=== PATIENT | female | born 1960 | race African-American/Black ===

== ENCOUNTER 2024-12-01 11:50 | Inpatient (IN) | payer OTHER, MEDICAID ==
[~2024-12-01] VITALS: Ht 162.6 cm; Wt 71.5 kg
[2024-12-01] VITALS (15 sets, daily range): BP systolic 85–115; BP diastolic 51–74; PULSE 101–126; RESP 16–26; TEMP 101.3–101.9; O2SAT 96–100
--- NOTE | 2024-12-01 12:02 | ECG ---
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
--- NOTE | 2024-12-01 12:14 | ED.PDOC ---
History of Present Illness HPI Comments 64 y/o F is BIBA for c/o shortness of breath and bilateral upper and lower extremity swelling for the past 5x days, today. Per EMS report, patient's manager of marketing called after endorsing on patient getting progressively worse following initial unprovoked onset of symptoms, amidst multiple breathing treatments administrations at home along with history of medication compliancy. She has an endorses history of end-stage COPD, CHF w/Lasix use, HTN, asthma, tobacco use, anxiety, depression, and panic attacks. On scene, patient was found with a Spo2 of 92%, tachycardic at 120, blood pressure of 98/61, and a blood glucose fo 191 on scene, with patient "barely passing air" and with rhonchi and wheezing. En route, she was reported to have been given 1x Atrovent and 3x breathing treatments en route, with SpO2 improving to 99%. She has no reported chest pain, cough, fever, chills, nausea, or vomiting at this time. Chief Complaint: Shortness of Breath Time Seen by MD: 11:55 Primary Care Provider: KRIS Reviewed Notes: Nurses Notes, Senior Actuarial Analyst Notes, Medications, Allergies Allergies: Coded Allergies: Sulfa Drugs (Verified Allergy, Unknown, 12/01/24) Information Source: Patient, Emergency Med Personnel Mode of Arrival: EMS Severity: Moderate Timing: Days Duration: Since onset Prehospital treatment: 12 Lead EKG, Accucheck, Breathing Tx, Celebrity Chef Entrepreneur Media Personality Past Medical History PAST MEDICAL HISTORY: Anxiety, Asthma, CHF (w/Lasix use), COPD (end-stage ), Depression, HTN Past Medical History (Other): panic attacks Surgical History: BTL, NEEDLE MOLDER History: No Pertinent NEEDLE MOLDER History Family History Family History: No family hx of Cancer, No family hx of DM, No family hx of Heart lavern, No family hx of HTN, No family hx of Stroke Social History Smoker: Cigarettes Alcohol: Denies ETOH Use Drugs: Denies Drug Use Lives In: Home, Assisted Care Constitutional: denies: chills, diaphoresis, fatigue, fever, malaise, sweats, weakness, others EENTM: denies: blurred vision, double vision, ear bleeding, ear discharge, ear drainage, ear pain, ear ringing, eye pain, eye redness, hearing loss, mouth pain, mouth swelling, nasal discharge, nose bleeding, nose congestion, nose pain, photophobia, tearing, throat pain, throat swelling, voice changes, others Respiratory: reports: shortness of breath; denies: cough, hemoptysis, orthopnea, SOB at rest, SOB with excertion, stridor, wheezing, others Cardiovascular: denies: chest pain, dizzy spells, diaphoresis, Dyspnea on exertion, edema, irregular heart beat, left arm pain, lightheadedness, palpitations, PND, syncope, others Gastrointestinal: denies: abdomen distended, abdominal pain, blood streaked bowels, constipated, diarrhea, dysphagia, difficulty swallowing, hematemesis, melena, nausea, poor appetite, poor fluid intake, rectal bleeding, rectal pain, vomiting, others Genitourinary: denies: abnormal vagina bleeding, burning, dyspareunia, dysuria, flank pain, frequency, hematuria, incontinence, pain, , vagina discharge, urgency, others Neurological: denies: dizziness, fainting, headache, left sided numbness, left sided weakness, numbness, paresthesia, pre-existing deficit, right sided numbness, right sided weakness, seizure, speech problems, tingling, tremors, weakness, others Musculoskeletal: reports: others (bilateral upper and lower extremity swelling ); denies: back pain, gout, joint pain, joint swelling, muscle pain, muscle stiffness, neck pain Integumetry: denies: bruises, change in color, change in hair/nails, dryness, laceration, lesions, lumps, rash, wounds, others Allergic/Immunocompromised: denies: Difficulty Healing, Frequent Infections, Hives, Itching, others Hematologic/Lymphatic: denies: anemia, blood clots, easy bleeding, easy bruising, swollen glands, others Endocrine: denies: excessive hunger, excessive sweating, excessive thirst, excessive urination, flushing, intolerance to cold, intolerance to heat, unexplained weight gain, unexplained weight loss, others Psychiatric: denies: anxiety, bipolar disorder, depression, hopeless, panic disorder, schizophrenia, sleepless, suicidal, others All Other Systems: Reviewed and Negative (negative unless otherwise stated above or in HPI) Physical Exam General Appearance: Severe Distress HEENT: Normal ENT Inspection, Pharynx Normal, TMs Normal Neck: Full Range of Motion, Non-Tender, Normal, Normal Inspection Respiratory: Accessory Muscle Use, Chest Non-Tender, Decreased Breath Sounds, Lungs Clear, Respiratory Distress, Other (The patient was somewhat altered with accessory muscle use) Cardiovascular: No Edema, No JVD, No Murmur, No Gallop, Normal Peripheral Pulses, Regular Rate/Rhythm Breast Exam: Deferred Gastrointestinal: No Organomegaly, Non Tender, No Pulsatile Mass, Normal Bowel Sounds, Soft Genitalia: Deferred Pelvic: Deferred Rectal: Deferred Extremities: No calf tenderness, Normal capillary refill, Normal inspection, Normal range of motion, Non-tender, No pedal edema Musculoskeletal : Apperance: Normal Neurologic: erp manager II-XII nml as Tested, Motor Weakness, Normal Affect, No Sensory Deficits, Other (The patient was somewhat lethargic) Cerebellar Function: Unable to Test Reflexes: Normal Skin: Dry, Pallor, Warm Lymphatic: No Adenopathy Was a procedure done? Was a procedure done?: Yes Sedation Sedation?: Yes Informed consent obtained: Yes Sedation start time: 12:40 Sedation end time: 12:55 Sedation total time: 15 minutes Central Line Recorder of insertion practice: Residential Concierge Occupation of social insurance specialist: Other (Resident physician) Indication: Hypotension, CVP monitoring Room prepared for procedure: Yes Residential Concierge performed hand hygien: Yes Maximal sterile barrier precau: Mask/Eye shield, Sterile gown, Cap, Sterlie gloves, Large sterlie drape Skin Preparation: Chlorhexidine gluconate Skin preparation completely dr: Yes Insertion site: Right, Internal jugular Central line catheter type: Tou-mhecmbun-nqy dialysis Number of lumens: 3 Central line exchanged over a: No Antiseptic ointment applied to: Yes Post Assessment: Chest X-Ray, Proper placement Informed consent obtained: No Risks/benefits/alt described: No Intubation Indication: Respiratory Insufficiency Prep: Preoxygenation Pretreated with: Nothing Medicated with: Succinylcholine (100mg ), Other (20mg etomidate ) Intubation Approach: Orotracheal (8.0) Intubation size: cm (22 ) Informed consent obtained: Yes Risks/benefits/alt described: Yes EKG EKG : Pulse Rate (adult): 122 [place]: Normal Cardiac Rhythm: ST Block: None Hypertrophy: None ST: Normal Differential Dx Considerations may include: COPD exacerbation, CHF exacerbation, asthma exacerbation, URI, PNA, PE, viral syndrome, pleural effusions X-Ray, Labs, Meds, VS Vital Signs Date Time Temp Pulse Resp B/P (MAP) Pulse Ox O2 Delivery O2 Flow Rate FiO2 12/01/24 19:30 117 19 87/57 (67) 99 12/01/24 19:20 87/57 12/01/24 19:15 118 19 91/53 (66) 99 12/01/24 19:15 91/53 12/01/24 19:10 68/41 12/01/24 19:05 60/35 12/01/24 19:00 124 19 67/39 (48) 99 12/01/24 19:00 67/39 12/01/24 19:00 67/39 12/01/24 19:00 67/39 12/01/24 18:45 123 19 99/50 (66) 99 12/01/24 18:30 123 19 93/51 (65) 99 12/01/24 18:15 125 19 112/53 (72) 99 12/01/24 18:00 112/53 12/01/24 18:00 112/53 12/01/24 18:00 114 19 114/57 (76) 99 12/01/24 17:45 114 19 101/67 (78) 99 12/01/24 17:30 112 19 95/59 (71) 99 12/01/24 17:15 112 19 87/55 (66) 99 12/01/24 17:00 115 19 93/58 (70) 100 12/01/24 17:00 93/58 12/01/24 17:00 93/58 12/01/24 16:45 109 19 101/57 (72) 100 12/01/24 16:44 89/50 12/01/24 16:36 115 26 101/57 (72) 100 35 12/01/24 16:30 109 19 94/58 (70) 100 12/01/24 16:15 105 19 81/54 (63) 100 12/01/24 16:00 111 12/01/24 16:00 97.9 111 21 82/54 (63) 100 97.9 12/01/24 16:00 101/57 12/01/24 16:00 101/57 12/01/24 15:45 111 21 91/57 (68) 100 12/01/24 15:30 111 21 94/54 (67) 100 12/01/24 15:15 113 21 99/59 (72) 100 12/01/24 15:00 122 16 115/61 97 50 12/01/24 15:00 94/58 12/01/24 15:00 94/58 12/01/24 15:00 115 21 97/64 (75) 100 12/01/24 14:49 116 12/01/24 14:46 91/60 12/01/24 14:45 91/60 12/01/24 14:45 91/60 12/01/24 14:45 116 21 93/60 (71) 100 12/01/24 14:30 119 21 91/61 (71) 100 12/01/24 14:15 122 21 91/52 (65) 100 12/01/24 14:00 122 21 90/53 (65) 100 12/01/24 13:55 117 22 100 Mechanical Ventilator+ 50 50 12/01/24 13:45 115 21 100/47 (64) 100 12/01/24 13:37 115 86/53 (64) 100 50 12/01/24 13:36 26 100 Mechanical Ventilator+ 100 100 12/01/24 13:32 89/54 12/01/24 13:30 122 22 89/54 (66) 100 12/01/24 13:15 127 12 87/45 (59) 100 12/01/24 13:01 122 12/01/24 13:00 121 12 115/61 (79) 100 12/01/24 12:47 122 26 115/61 (79) 100 50 12/01/24 12:45 127 12 115/52 (73) 100 12/01/24 12:30 127 12 123/53 (76) 100 12/01/24 12:19 98.1 127 12 140/66 (90) 100 98.1 12/01/24 12:14 122 12/01/24 12:04 98.4 120 24 108/62 (77) 99 12/01/24 11:55 122 Lab Test 12/01/24 15:55 12/01/24 15:39 12/01/24 13:35 12/01/24 12:55 Range/Units Blood Gas Specimen Type Arterial Blood Gas Sample Site Left radial Blood Gas Patient Temperature 37.0 Arterial Blood Date Drawn [id number] Arterial Blood pH 7.381 7.350-7.450 Arterial Blood Partial Pressure CO2 66.4 *H 32.0-45.0 mmHg Arterial Blood Partial Pressure O2 140.3 H 83.0-108.0 mmHg Arterial Blood HCO3 38.5 H 21.0-28.0 mmol/L Arterial Blood Oxygen Saturation 98.9 H 94.0-98.0 % Arterial Blood Base Excess 11.6 H -2.0-3.0 mmol/L Arterial Blood Oxyhemoglobin 97.3 94.0-98.0 % Arterial Blood Carboxyhemoglobin 1.3 0.5-1.5 % Arterial Blood Methemoglobin 0.3 0.0-1.5 % Drake Test Modified Blood Gas Total Hemoglobin 9.10 L 12.0-16.0 g/dL Blood Gas Set Respiration Rate 26.0 Blood Gas Modality Vent - ac FiO2 % 50.0 Blood Gas Tidal Volume 400.0 Blood Gas PEEP or CPAP 5.0 Blood Gas Critical Value Read Back yes Blood Gas Notified Whom deisi Rhoades md Blood Gas Notified Time [id number] Blood Gas Notified By Metallic Yarn Slitting Machine Operator fran rajput Troponin I High Sensitivity 26 34 </=34 ng/L Urine Color Light-yellow Yellow Urine Clarity Clear Clear Urine pH 6.0 5.0-9.0 Urine Specific [place] 1.018 1.001-1.035 Urine Protein 1+ H Negative Urine Ketones Negative Negative Urine Blood Negative Negative /uL Urine Nitrite Negative Negative Urine Bilirubin Negative Negative Urine Urobilinogen Normal Negative mg/dL Urine Leukocyte Esterase Negative Negative /uL Urine RBC 1 0 - 4 /hpf Urine Microscopic WBC 1 0-5 /HPF Urine Squamous Epithelial Cells Few <5 /hpf Urine Bacteria None seen None Seen /hpf Urine Hyaline Casts Few 0 - 2 /lpf Urine Mucus Few None Seen Urine Glucose Normal Normal mg/dL Test 12/01/24 12:30 12/01/24 12:24 Range/Units White Blood Count 16.6 H 4.4-10.8 10^3/uL Red Blood Count 3.32 L 4.0-5.20 10^6/uL Hemoglobin 9.0 L 12.2-16.2 g/dL Hematocrit 28.9 L 36.0-46.0 % Mean Corpuscular Volume 86.9 80.0-100.0 fL Mean Corpuscular Hemoglobin 27.1 L 28.0-32.0 pg Mean Corpuscular Hemoglobin Concent 31.2 L 32.0-36.0 g/dL Red Cell Distribution Width 17.6 H 11.8-14.3 % Platelet Count 317 140-450 10^3/uL Mean Platelet Volume 7.8 6.9-10.8 fL Neutrophils (%) (Auto) 87.4 H 37.0-80.0 % Lymphocytes (%) (Auto) 5.0 L 10.0-50.0 % Monocytes (%) (Auto) 6.2 0.0-12.0 % Eosinophils (%) (Auto) 1.0 0.0-7.0 % Basophils (%) (Auto) 0.4 0.0-2.0 % Neutrophils # (Auto) 14.5 H 1.6-8.6 10 ^3/uL Lymphocytes # (Auto) 0.8 0.4-5.4 10 ^3/uL Monocytes # (Auto) 1.0 0-1.3 10 ^3/uL Eosinophils # (Auto) 0.2 0-0.8 10 ^3/uL Basophils # (Auto) 0.1 0-0.2 10 ^3/uL Nucleated Red Blood Cells 0.0 % Sodium Level 137 136-145 mmol/L Potassium Level 4.1 3.5-5.1 mmol/L Chloride Level 89 L 98-107 mmol/L Carbon Dioxide Level > 40 *H 20-31 mmol/L Anion Gap 7.32822 5-15 Blood Urea Nitrogen 15 9-23 mg/dL Creatinine 0.94 0.550-1.02 mg/dL Glomerular Filtration Rate Calc 67 >90 mL/min BUN/Creatinine Ratio 16.0 10.0-20.0 Serum Glucose 175 H 74-106 mg/dL Lactic Acid Level 0.9 0.4-2.0 mmol/L Calcium Level 10.0 8.7-10.4 mg/dL Magnesium Level 2.0 1.6-2.6 mg/dL Troponin I High Sensitivity 32 </=34 ng/L B-Type Natriuretic Peptide 42.90 0-100 pg/mL Blood Gas Specimen Type Arterial Blood Gas Sample Site Left radial Blood Gas Patient Temperature 37.0 Arterial Blood Date Drawn [id number] Arterial Blood pH 7.093 *L 7.350-7.450 Arterial Blood Partial Pressure CO2 174.6 *H 32.0-45.0 mmHg Arterial Blood Partial Pressure O2 129.4 H 83.0-108.0 mmHg Arterial Blood HCO3 52.1 H 21.0-28.0 mmol/L Arterial Blood Oxygen Saturation 97.9 94.0-98.0 % Arterial Blood Base Excess 17.6 H -2.0-3.0 mmol/L Arterial Blood Oxyhemoglobin 96.4 94.0-98.0 % Arterial Blood Carboxyhemoglobin 1.1 0.5-1.5 % Arterial Blood Methemoglobin 0.4 0.0-1.5 % Drake Test Yes Blood Gas Total Hemoglobin 10.20 L 12.0-16.0 g/dL Blood Gas Liter Flow 8.00 Blood Gas Modality Mask - simple FiO2 % 52.0 Blood Gas Critical Value Read Back Yes Blood Gas Notified Whom deisi Rhoades md Blood Gas Notified Time [id number] Blood Gas Notified By Current Medications Medications (Trade) Dose Ordered Sig/Oswaldo Route Start Time Stop Time Status Last Admin Ipratropium Cranberry (Atrovent Medneb) 1 mg ONCE ONCE N 12/01/24 12:00 12/01/24 12:02 DC 12/01/24 13:32 Albuterol (Ventolin Medneb) 10 mg ONCE ONCE HHN 12/01/24 12:00 12/01/24 12:02 DC 12/01/24 13:32 Etomidate 20 mg ONCE ONCE IV 12/01/24 13:00 12/01/24 13:01 DC 12/01/24 12:46 Succinylcholine Chloride (Quelicin) 100 mg ONCE ONCE IV 12/01/24 13:00 12/01/24 13:01 DC 12/01/24 12:47 Midazolam HCl 50 ml @ 1 mls/hr Q24H IV 12/01/24 13:00 12/01/24 16:44 Fentanyl Citrate 250 ml @ 2.5 mls/hr Q24H IV 12/01/24 14:30 12/01/24 14:45 Norepinephrine Bitartrate 250 ml @ 3.75 mls/hr Q24H IV 12/01/24 18:15 12/01/24 19:[address] [address] Ph: [phone] DIAGNOSTIC IMAGING Diagnostic Imaging Report : [id number] Signed PATIENT: SONU GUPTA ACCT: [id number] UNIT: [id number] : 1960 LOC: ER ROOM / BED: / AGE / SEX: 64 / F ADM STATUS: REG ER SERVICE 1200 ORDERING PHYSICIAN: KEVIN RHOADES MD PROCEDURE(s): CXRP - CHEST PORTABLE REASON: sob ORDER NUMBER(s): [id number], ACCESSION NUMBER(s): [id number] CHEST RADIOGRAPH Indication: sob Technique: Single frontal view of the chest was obtained Comparison: None FINDINGS: Lines and Tubes: None Lungs: Bibasilar airspace opacities. Pleura: No effusion. No pneumothorax. Cardiomediastinal contours: Unremarkable Bones: No acute osseous abnormality. IMPRESSION: Bibasilar airspace opacities. ATED BY: JANINE NORRIS MD DICTATED DATE/TIME: 12/01/24 124 SIGNED BY: JANINE NORRIS MD SIGNED DATE/TIME: 12/01/241240 CC: IV Hep-Lock was established. Upon arrival, the patient was normotensive. The patient had a chest x-ray done which showed some pulmonary vascular co ngestion. The patient was still seems a little bit altered so we did do an ABG which the 1st ABG shows a pH of 7.09/pCO2 of 174/PO2 of 129 At this point we decided that the patient would need to be intubated. The patient was intubated with the etomidate and succinylcholine A Cavazos catheter was placed. For sedation, we did start the patient off with Versed but then the patient which required some fentanyl and then eventually propofol. The patient was normotensive but then became somewhat hypotensive so required Levophed. We will continue the patient was norepinephrine to manage the patient's blood pressure. The patient has sustained the central line placement to the right IJ without any difficulty. A chest x-ray is done which showed proper placement of the internal jugular central line as well as the endotracheal tube was above the kaykay of about 3.3 cm The patient has an elevated CBC of 16.6 The patient was somewhat anemic with a hemoglobin of 9.0 and hematocrit of 28.9 The platelets are 317 The CO2 level was greater than 40 on the serum level We are getting a pulmonary consult as well as a Cardiology consult The patient is being admitted to the ICU A repeat ABG shows a pH of 7.38/pCO2 of 68 as well as a PO2 of 140 The patient was being admitted at this time Images Reviewed?: Images reviewed and evaluated by me Time of 1ST Reevaluation: 12:25 Reevaluation 1ST: Unchanged Time of 2ND Reevaluation: 20:13 Reevaluation 2ND: Improved Patient Education/Counseling: Diagnosis, Treatment, Prognosis Family Education/Counseling: Diagnosis, Treatment, Prognosis Departure 1 Departure Time of Disposition: 20:11 Impression: Primary Impression: Acute respiratory failure Qualified Codes: J96.02 - Acute respiratory failure with hypercapnia Additional Impression: Hypotension Qualified Codes: I95.9 - Hypotension, unspecified Disposition: 09 ADMITTED INPATIENT Admit to: ICU Condition: Critical Critical Care Note Critical Care Time?: Yes (1 hr-critical care time only) Stability Stability form required: Yes Unstable for transfer: ICU, CCU, PCU, HERIBERTO (Intensive VS monitoring), ED Physician Assesment (Clinical assesment) Heart Score Heart Score: Heart Score Response (Comments) Value History Highly Suspicious 2 EKG Normal 0 Age >65 2 Risk Factors >3 or Hx ASHD 2 Troponin Normal limit 0 Total 6 I personally scribed for KEVIN RHOADES MD ([email or web address]) on 12/01/24 at 12:14. Electronically submitted by Tyron Solorzano ([email or web address]). I personally scribed for KEVIN RHOADES MD ([email or web address]) on 12/01/24 at 12:54. Electronically submitted by Tyron Solorzano ([email or web address]). I personally scribed for KEVIN RHOADES MD ([email or web address]) on 12/01/24 at 13:09. Electronically submitted by Tyron Solorzano ([email or web address]). KEVIN RHOADES MD Dec 01, 2024 12:14
[2024-12-01 12:38] LABS: Basophils # (auto) 0.1 10 ^3/uL (0-0.2); Basophils % (auto) 0.4 % (0.0-2.0); Eosinophils # (auto) 0.2 10 ^3/uL (0-0.8); Hematocrit 28.9 % (36.0-46.0); Lymphocytes # (auto) 0.8 10 ^3/uL (0.4-5.4); Mean Corpuscular Hemoglobin 27.1 pg (28.0-32.0); Mean Corpuscular Hgb Conc. 31.2 g/dL (32.0-36.0); Mean Corpuscular Volume 86.9 fL (80.0-100.0); Monocytes % (auto) 6.2 % (0.0-12.0); Neutrophils # (auto) 14.5 10 ^3/uL (1.6-8.6); Neutrophils % (auto) 87.4 % (37.0-80.0); Platelet Count (auto) 317 10^3/uL (140-450); Red Blood Cells 3.32 10^6/uL (4.0-5.20); Red Cell Distribution Width 17.6 % (11.8-14.3); White Blood Cell 16.6 10^3/uL (4.4-10.8)
--- NOTE | 2024-12-01 12:44 | DVH ---
CHEST RADIOGRAPH Indication: sob Technique: Single frontal view of the chest was obtained Comparison: None FINDINGS: Lines and Tubes: None Lungs: Bibasilar airspace opacities. Pleura: No effusion. No pneumothorax. Cardiomediastinal contours: Unremarkable Bones: No acute osseous abnormality. IMPRESSION: Bibasilar airspace opacities.
[2024-12-01] MEDS: ETOMIDATE (2MG/ML) 20ML VIAL IV ONE ×2 (12:46→12:52)
[2024-12-01] MEDS: SUCCINYLCHOLINE CHLORIDE 20 MG/ML 10ML VIAL IV ONE ×2 (12:47→12:52)
[2024-12-01 12:49] LABS: Potassium 4.1 mmol/L (3.5-5.1); Sodium 137 mmol/L (136-145)
[2024-12-01] MEDS: MIDAZOLAM DRIP 50 mg/50mL 50 ML IV ONE (12:52)
[2024-12-01 12:55] LABS: Blood Urea Nitrogen 15 mg/dL (9-23)
[2024-12-01 13:00] LABS: Urine Bacteria None Seen /hpf (None Seen)
[2024-12-01 13:00] LABS: Chloride 89 mmol/L (98-107)
[2024-12-01 13:02] LABS: Anion Gap 7.99999 (5-15); Carbon Dioxide > 40 mmol/L (20-31); Glucose 175 mg/dL (74-106)
--- NOTE | 2024-12-01 13:02 | ECG ---
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
[2024-12-01 13:12] LABS: Base Excess 17.6 mmol/L (-2.0-3.0)
--- NOTE | 2024-12-01 13:21 | DVH ---
CHEST RADIOGRAPH Indication: s/p intubation and OG tube placement Technique: Single frontal view of the chest was obtained COMPARISON: XY CHEST PORTABLE on DOS: 12/01/24 FINDINGS: Lines and Tubes: Endotracheal tube and enteric catheter in satisfactory position. Lungs: Pulmonary vascular congestion. Pleura: No effusion. No pneumothorax. Cardiomediastinal contours: Cardiomegaly. Bones: Unremarkable IMPRESSION: Lines and tubes in satisfactory position. Pulmonary vascular congestion.
[2024-12-01] MEDS: FUROSEMIDE 40 MG/4 ML VIAL IV ONE (13:32)
[2024-12-01] MEDS: IPRATROPIUM BROM 0.5 MG/2.5ML INH SOL HHN ONE (13:32)
[2024-12-01] MEDS: ALBUTEROL SULF 2.5 MG/0.5ML(0.5%) NEB SOLN HHN ONE (13:32)
[2024-12-01 13:36] LABS: Urine Blood Negative /uL (Negative); Urine Clarity Clear (Clear); Urine Color Light-Yellow (Yellow); Urine Hyaline Cast FEW /lpf (0 - 2); Urine Mucus FEW (None Seen); Urine Protein, UAD 1+ (Negative); Urine Specific Gravity 1.018 (1.001-1.035); Urine Squamous Epithelial Cell FEW /hpf (<5); Urine Urobilinogen Normal (Negative); Urine WBC 1 /HPF (0-5)
[2024-12-01] MEDS: fentaNYL Drip 2500mCg/250mlNS 250 ML IV SCH (14:45)
[2024-12-01] MEDS: MIDAZOLAM DRIP 50 mg/50mL 50 ML IV SCH (14:45)
--- NOTE | 2024-12-01 15:20 | ECG ---
[facility] Test Date: 2024-12-01 Test Time: 14:49:56 Pat Name: SONU GUPTA Department: ER Room: [address] [place] [address] Gender: F Gate Clerk: IRLANDA : 1960 Requested By: KEVIN HESTER Order Number: [id number] Reading MD: Gee Osborn Measurements Intervals [place] Rate: 116 P: 68 FL: 136 QRS: 55 QRSD: 69 T: 48 QT: 309 QTc: 430 Interpretive Statements Sinus tachycardia Borderline ST elevation, lateral leads Electronically Signed On 12-03-2024 17:47:45 PST by Gee Osborn Please click the below link to view image of tracing.
[2024-12-01 16:44] LABS: Base Excess 11.6 mmol/L (-2.0-3.0)
--- NOTE | 2024-12-01 16:46 | DVH ---
EXAM: CT HEAD WITHOUT CONTRAST HISTORY: aloc COMPARISON: None TECHNIQUE: Axial images of the head were obtained and reformatted in coronal and sagittal planes. All CT scans at this medical facility are performed using dose modulation techniques as appropriate t o a performed exam including the following: Automated exposure control was utilized; adjustment of th e MA and/or KV according to patient size; and use of iterative reconstruction technique. CT Dose: CTDI volume is 60 mGy. Dose-length product is 1059 mGy*cm FINDINGS: There is no evidence of acute intracranial hemorrhage, mass, mass effect midline shift. There is no h ydrocephalus or extra-axial fluid collection. There are patchy hypodense areas in the supratentorial white matter compatible with chronic small-vessel ischemic changes De Dios-white matter differentiation is maintained. The visualized paranasal sinuses and mastoid air cells are clear. The calvarium is intact. IMPRESSION: 1. No acute intracranial process. HS:Y
--- NOTE | 2024-12-01 16:52 | DVH ---
CT ABDOMEN AND PELVIS WITHOUT CONTRAST CLINICAL HISTORY: abd pain TECHNIQUE: Multiple contiguous axial images of the abdomen and pelvis without intravenous contrast. The images were reformatted degenerate coronal and sagittal reconstructions. All CT scans at this medical facility are performed using dose modulation techniques as appropriate t o a performed exam including the following:Automated exposure control was utilized; adjustment of the MA and/or KV according to patient size; and use of iterative reconstruction technique. Radiation Dose Information: CT Dose: CTDI volume is 20 mGy. Dose-length product is 937 mGy*cm Comparison: None FINDINGS: Evaluation of the abdomen and pelvis is limited without intravenous contrast. The liver, gallbladder, pancreas, kidneys, adrenal glands, and spleen appear within normal limits. There is no gross evidence of abdominal lymphadenopathy. There is no free fluid or free air. There is an NG tube terminating in the stomach. The stomach grossly appears unremarkable. The small and large bowel loops demonstrate normal caliber. There is moderate amount of stool in the colon. Th e appendix is not seen in the right lower quadrant. There are no secondary signs of acute appendiciti s. There are calcified atherosclerotic changes in the abdominal aorta. The IVC appears within normal li mits There is a Cavazos catheter in the bladder which is decompressed. The uterus appears lobular which May relate to fibroid changes. There is no gross evidence of a pelvic mass. There is no free fluid colle ction. There is parenchymal scarring in the visualized lung bases. There is no acute osseous abnormality. IMPRESSION: 1. There is no acute process in the abdomen and pelvis. 2. Moderate amount of stool in the colon. HS:Y
[2024-12-01] MEDS: NOREPINEPHRINE 8 MG/250ML KIT 250 ML IV ONE (18:21)
[2024-12-01] MEDS: NOREPINEPHRINE 8 MG/250ML KIT 250 ML IV SCH (19:00)
--- NOTE | 2024-12-01 19:12 | DVH ---
CHEST RADIOGRAPH Indication: CVC insertion Technique: Single frontal view of the chest was obtained Comparison: XY CHEST PORTABLE on DOS: 12/01/24, XY CHEST PORTABLE on DOS: 12/01/24 FINDINGS: Lines and Tubes: Endotracheal tube 3.3 cm above the kaykay. Right internal jugular catheter in place at the cavoatrial junction or just within the right atrium. Enteric tube below the left diaphragm in the stomach Lungs: No focal consolidation. Pleura: No effusion. No pneumothorax. Cardiomediastinal contours: Unremarkable Bones: No acute osseous abnormality. IMPRESSION: 1. Endotracheal tube in place 3.3 cm above the kaykay. 2. Right internal jugular catheter in place at the cavoatrial junction or within the right atrium. 3. Enteric tube below the left diaphragm in the stomach. 4. Findings suggesting pulmonary vascular congestion. HS:Y
[2024-12-01] MEDS: PROPOFOL 100 ML IV ONE (20:00)
[2024-12-01] MEDS: PROPOFOL 100 ML IV SCH (20:00)
[2024-12-01] MEDS ORDERED: VANCOMYCIN PER PHARMACY 0 MG IV SCH (21:15)
[2024-12-01] MEDS ORDERED: CEFEPIME 2GM/50ML NS 50 ML IV SCH (22:00)
[2024-12-01 22:07] LABS: Triglycerides 118 mg/dL (< 150)
[2024-12-01 22:09] LABS: Cholesterol 193 mg/dL (< 200); HDL Cholesterol 56 mg/dL (40-59)
[2024-12-01 22:10] LABS: LDL Cholesterol 110 mg/dL (< 100)
[2024-12-01] MEDS: CEFEPIME 2GM/50ML NS 50 ML IV ONE (22:27)
--- NOTE | 2024-12-01 22:41 | DVHHPRES ---
History of Present Illness Resident Creating Document: MARILUZ AGUILAR RESIDENT History of Present Illness This 64-year-old female with past medical history hypertension, COPD, CHF, asthma, anxiety, panic attacks and depression. The patient presented to the ED via EMS due to shortness of breath associated with bilateral lower extremity swelling and mild bilateral hand swelling as well. Per Lisa (daughter) she states that the patient was having flu-like symptoms a couple of days prior to admission. Apparently, the patient had panic attacks denied before coming to the ED and was having trouble falling asleep with the associated shortness of breath, next morning the patient continued to have shortness of breath for which EMS was called. Initially at scene, the patient was found hypoxic, tachycardic with low blood pressure and gasping for air. On admission, patient received multiple breathing treatments but ABG was showing respiratory acidosis with severe hypercapnia which required intubation. Initial labs showed a WBC of 16.6, hemoglobin of 9, BNP was grossly unremarkable. Troponins came back negative, BNP was 42.90 and EKG was showing sinus tachycardia with no ST segment elevation or depression. The patient is currently sedated on fentanyl 350 micrograms/hour, Versed 50 milligrams/hour and propofol 5 microgram/kilogram per minute. Currently on mechanical ventilator on the following parameters: VT 400 mL, RR 26, FiO2 35%, PEEP 5, Sat 99%. On my examination, there is mild crackles on bilateral lung flowers, abdomen is distended and slightly hard to palpation, there is no lower extremity edema at this time. Start the patient on IV vancomycin, IV cefepime. We will order an echocardiogram and further studies. The patient will be admitted for further assessment and management. Cardiovascular: CHF, HTN, hyperipidemia Pulmonary: Asthma, COPD Psych: Anxiety, Depression Past Surgical History: None Family History: None Smoke: No ALCOHOL: none Drugs: None Lives: with Family Domestic Violence: Neg Review of Systems Review of Systems Unable to obtain due to patient's current status (sedated and intubated) Allergies: Coded Allergies: Sulfa Drugs (Verified Allergy, Unknown, 12/01/24) Medications Current Medications Medications Dose Ordered Sig/Oswaldo Route Start Time Stop Time Status Last Admin Dose Admin Midazolam HCl 50 ml @ 1 mls/hr Q24H IV 12/01/24 13:00 12/01/24 16:44 15 MLS/HR Fentanyl Citrate 250 ml @ 2.5 mls/hr Q24H IV 12/01/24 14:30 12/01/24 14:45 2.5 MLS/HR Norepinephrine Bitartrate 250 ml @ 3.75 mls/hr Q24H IV 12/01/24 18:15 12/01/24 19:00 3.75 MLS/HR Propofol 100 ml @ 2.73 mls/hr Q24H IV 12/01/24 20:00 12/01/24 20:00 2.73 MLS/HR Vancomycin HCl 0 ml @ 0 mls/hr UD IV 12/01/24 21:15 UNV Cefepime HCl 50 ml @ 12.5 mls/hr Q12HR IV 12/01/24 22:00 UNV Enoxaparin Sodium 40 mg DAILY SC 12/02/24 10:00 UNV Exam Vital Signs Vital Signs Date Time Temp Pulse Resp B/P (MAP) Pulse Ox O2 Delivery O2 Flow Rate FiO2 12/01/24 21:00 117 26 88/50 (63) 99 12/01/24 20:16 35 12/01/24 16:00 97.9 97.9 12/01/24 13:55 Mechanical Ventilator+ General Appearance: Other (Patient is sedated, intubated and mechanically ventilated) HEENT: Atraumatic, PERRLA Respiratory: Other (There are mild crackles on bilateral lung flowers) Abdominal: Normal bowel sounds, Other (There is mild abdominal distention that is slightly tense to palpation) Extremities: No clubbing, No cyanosis, No edema, Normal pulses, No tenderness/swelling Skin: No rashes, No breakdown, No significant lesion Neuro: Other (Unable to assess since the patient is already intubated and sedated RASS -3) Psych/Mental Status: Other Labs/Xrays Labs Test 12/01/24 15:55 12/01/24 15:39 12/01/24 12:55 12/01/24 12:30 Range/Units Blood Gas Specimen Type Arterial Blood Gas Sample Site Left radial Blood Gas Patient Temperature 37.0 Arterial Blood Date Drawn [id number] Arterial Blood pH 7.381 7.350-7.450 Arterial Blood Partial Pressure CO2 66.4 *H 32.0-45.0 mmHg Arterial Blood Partial Pressure O2 140.3 H 83.0-108.0 mmHg Arterial Blood HCO3 38.5 H 21.0-28.0 mmol/L Arterial Blood Oxygen Saturation 98.9 H 94.0-98.0 % Arterial Blood Base Excess 11.6 H -2.0-3.0 mmol/L Arterial Blood Oxyhemoglobin 97.3 94.0-98.0 % Arterial Blood Carboxyhemoglobin 1.3 0.5-1.5 % Arterial Blood Methemoglobin 0.3 0.0-1.5 % Drake Test Modified Blood Gas Total Hemoglobin 9.10 L 12.0-16.0 g/dL Blood Gas Set Respiration Rate 26.0 Blood Gas Modality Vent - ac FiO2 % 50.0 Blood Gas Tidal Volume 400.0 Blood Gas PEEP or CPAP 5.0 Blood Gas Critical Value Read Back yes Blood Gas Notified Whom deisi Rhoades md Blood Gas Notified Time [id number] Blood Gas Notified By Dietetics Professor fran rajput Troponin I High Sensitivity 26 </=34 ng/L Urine Color Light-yellow Yellow Urine Clarity Clear Clear Urine pH 6.0 5.0-9.0 Urine Specific [place] 1.018 1.001-1.035 Urine Protein 1+ H Negative Urine Ketones Negative Negative Urine Blood Negative Negative /uL Urine Nitrite Negative Negative Urine Bilirubin Negative Negative Urine Urobilinogen Normal Negative mg/dL Urine Leukocyte Esterase Negative Negative /uL Urine RBC 1 0 - 4 /hpf Urine Microscopic WBC 1 0-5 /HPF Urine Squamous Epithelial Cells Few <5 /hpf Urine Bacteria None seen None Seen /hpf Urine Hyaline Casts Few 0 - 2 /lpf Urine Mucus Few None Seen Urine Glucose Normal Normal mg/dL White Blood Count 16.6 H 4.4-10.8 10^3/uL Red Blood Count 3.32 L 4.0-5.20 10^6/uL Hemoglobin 9.0 L 12.2-16.2 g/dL Hematocrit 28.9 L 36.0-46.0 % Mean Corpuscular Volume 86.9 80.0-100.0 fL Mean Corpuscular Hemoglobin 27.1 L 28.0-32.0 pg Mean Corpuscular Hemoglobin Concent 31.2 L 32.0-36.0 g/dL Red Cell Distribution Width 17.6 H 11.8-14.3 % Platelet Count 317 140-450 10^3/uL Mean Platelet Volume 7.8 6.9-10.8 fL Neutrophils (%) (Auto) 87.4 H 37.0-80.0 % Lymphocytes (%) (Auto) 5.0 L 10.0-50.0 % Monocytes (%) (Auto) 6.2 0.0-12.0 % Eosinophils (%) (Auto) 1.0 0.0-7.0 % Basophils (%) (Auto) 0.4 0.0-2.0 % Neutrophils # (Auto) 14.5 H 1.6-8.6 10 ^3/uL Lymphocytes # (Auto) 0.8 0.4-5.4 10 ^3/uL Monocytes # (Auto) 1.0 0-1.3 10 ^3/uL Eosinophils # (Auto) 0.2 0-0.8 10 ^3/uL Basophils # (Auto) 0.1 0-0.2 10 ^3/uL Nucleated Red Blood Cells 0.0 % Sodium Level 137 136-145 mmol/L Potassium Level 4.1 3.5-5.1 mmol/L Chloride Level 89 L 98-107 mmol/L Carbon Dioxide Level > 40 *H 20-31 mmol/L Anion Gap 7.78396 5-15 Blood Urea Nitrogen 15 9-23 mg/dL Creatinine 0.94 0.550-1.02 mg/dL Glomerular Filtration Rate Calc 67 >90 mL/min BUN/Creatinine Ratio 16.0 10.0-20.0 Serum Glucose 175 H 74-106 mg/dL Lactic Acid Level 0.9 0.4-2.0 mmol/L Calcium Level 10.0 8.7-10.4 mg/dL Magnesium Level 2.0 1.6-2.6 mg/dL B-Type Natriuretic Peptide 42.90 0-100 pg/mL Test 12/01/24 12:24 Range/Units Blood Gas Liter Flow 8.00 Assessment/Plan Assessment/Plan Assessment/plan Acute hypercapnic respiratory failure likely due to Gram-positive/Gram-negative bacterial pneumonia Possible COPD exacerbation Septic shock likely due to above Possible acute on chronic systolic/diastolic heart failure -initial ABG showed a pH of 7.09, pCO2 of 174.6, PaO2 of 129.4, HC03 of 52.1 consistent with respiratory acidosis with chronic metabolic compensation -initial WBC is 16.6 -patient having spikes of fever -Currently on 1 vasopressor (Levophed) -currently sedated on Versed, propofol, fentanyl -currently intubated on the following mechanical ventilatory settings: VT 400, RR 26, FiO2 35%, PEEP 5, saturation of 99% -start IV vancomycin -start IV cefepime -Start IV hydrocortisone 50mg Q6 -Start respiratory therapy mith levalbuterol and ipratropium med nebs -order pancultures (blood culture, sputum culture, urinary ulcers) -monitor saturation closely -monitor with morning ABGs and chest x-ray -initial BNP was 42.90 -troponins were negative -will order an echocardiogram Acute abdominal distention likely due to constipation -Place Ng tube -Lactulose 30cc BID Hx of anxiety, depression and panic attacks -Patient is currently sedated and intubated -Monitor GI prophylaxis -IV pantoprazole 40mg daily DVT prophylaxis -Enoxaparin 40mg sc daily Central line placed on right internal jugular vein on 12/01/[address] Quick Plan discussed with: Daughter, Other My Orders Orders - MARILUZ AGUILAR RESIDENT Procedure Category Date Status Time Vancomycin Per PHA 12/01/24 Logged Pharmacy 21:15 Cefepime 2gm/50ml Ns PHA 12/01/24 Logged (Maxipime 2gm/50ml) 22:00 Admit ADMIT 12/01/24 Transmitted 21:29 Code Status CODE 12/01/24 Transmitted 21:29 Vital Signs PIERO 12/01/24 In Process 21:29 Review Orders With PIERO 12/01/24 In Process Adm. 21:29 Pulse Ox Cont Per Day RT 12/01/24 Logged 21:29 Notify Of Changes PIERO 12/01/24 In Process From Base 21:29 Advance Directive PIERO 12/01/24 In Process 21:29 Urinalysis LAB 12/01/24 Logged 21:29 Complete Blood Count LAB 12/02/24 Verified 04:00 Lipid Panel LAB 12/01/24 Logged 21:29 Urine Bacterial ROSETTA 12/01/24 Logged Culture 21:29 Patient Condition ORDERS 12/01/24 Transmitted 21:29 Allergies PIERO 12/01/24 In Process 21:29 Drug Screen LAB 12/01/24 Logged 21:29 Hemoglobin A1c LAB 12/01/24 Logged 21:29 Enoxaparin Sodium PHA 12/02/24 Logged (Lovenox) 10:00 Date of Service: Dec 01, 2024 Billing Provider: AREN QUICK MD Common Visit Codes: 71041-[id number] INP/OBS CARE (HIGH) Secondary Visit Codes: 82243-[id number] CARE PLAN 30 MINUTES DONNA CoteMARILUZ RESIDENT Dec 01, 2024 22:41 AREN QUICK MD Dec 02, 2024 08:51
[2024-12-01] MEDS: VANCOMYCIN 1GM/250ML KIT 250 ML IV SCH (23:00)
[2024-12-01] MEDS: HYDROCORTISONE SOD SUCC 100 MG/2ML INJ VIAL IV SCH (23:32)
[2024-12-01] MEDS: PANTOPRAZOLE 40 MG/10 ML VIAL INJ IV SCH (23:34)
[2024-12-01] MEDS: ACETAMINOPHEN 325 MG TAB PO PRN (23:34)
[2024-12-02] VITALS (105 sets, daily range): BP systolic 79–142; BP diastolic 38–95; PULSE 54–113; RESP 12–26; TEMP 96.1–100.3; O2SAT 87–100
[2024-12-02] MEDS: IPRATROPIUM BROM 0.5 MG/2.5ML INH SOL NEB SCH (00:14)
[2024-12-02] MEDS: LEVALBUTEROL HCL 1.25 MG/3 ML NEB NEB SCH (00:14)
[2024-12-02 05:09] LABS: Basophils # (auto) 0 10 ^3/uL (0-0.2); Basophils % (auto) 0.2 % (0.0-2.0); Eosinophils # (auto) 0.1 10 ^3/uL (0-0.8); Eosinophils % (auto) 0.7 % (0.0-7.0); Hemoglobin 8.6 g/dL (12.2-16.2); Mean Corpuscular Hemoglobin 25.7 pg (28.0-32.0); Monocytes # (auto) 1.2 10 ^3/uL (0-1.3); Neutrophils # (auto) 13.6 10 ^3/uL (1.6-8.6); Nucleated Red Blood Cells % 0.1 %
[2024-12-02 05:12] LABS: Hematocrit 28.5 % (36.0-46.0); Lymphocytes # (auto) 0.9 10 ^3/uL (0.4-5.4); Lymphocytes % (auto) 5.6 % (10.0-50.0); Mean Corpuscular Hgb Conc. 30.1 g/dL (32.0-36.0); Mean Corpuscular Volume 85.6 fL (80.0-100.0); Monocytes % (auto) 7.5 % (0.0-12.0); Platelet Count (auto) 274 10^3/uL (140-450); Red Blood Cells 3.33 10^6/uL (4.0-5.20); Red Cell Distribution Width 17.4 % (11.8-14.3); White Blood Cell 15.8 10^3/uL (4.4-10.8)
[2024-12-02] MEDS: CEFEPIME 2GM/50ML NS 50 ML IV SCH (05:53)
[2024-12-02 05:58] LABS: Alkaline Phosphatase 60 U/L (46-116); Anion Gap 12 (5-15); BUN/Creatinine Ratio 16.1 (10.0-20.0); Bilirubin, Total 0.3 mg/dL (0.2-1.0); Blood Urea Nitrogen 22 mg/dL (9-23); Calcium 9.6 mg/dL (8.7-10.4); Carbon Dioxide 30 mmol/L (20-31); Total Protein 6.8 g/dL (5.7-8.2)
[2024-12-02 06:24] LABS: Alanine Aminotransferase 41 U/L (7-40); Aspartate Aminotransferase 98 U/L (13-40); Chloride 92 mmol/L (98-107); Glucose 182 mg/dL (74-106); Potassium 3.3 mmol/L (3.5-5.1); Sodium 134 mmol/L (136-145)
[2024-12-02 07:00] LABS: Base Excess 10.3 mmol/L (-2.0-3.0)
[2024-12-02] MEDS: ENOXAPARIN SOD 40 MG/0.4 ML SYRINGE SC SCH (09:28)
[2024-12-02] MEDS: LACTULOSE 20Gm/30ML SOLN PO SCH (09:44)
--- NOTE | 2024-12-02 09:48 | DVHNC2 ---
Procedure - Central Line Procedure Note Date and time: 12/01/2024, at 1800 Indication: Vascular Access Central Line Location: Right Internal Jugular Vein Procedure [employer] Service Attendant: Sarai Wilson, Resident Attending Physician: Dr. Ernesto Rhoades Consent: Consent was obtained prior to the procedure. Indications, risks and benefits were discussed prior to the procedure. Procedure Summary: A time out was performed. My hands were washed immediately prior to the pr ocedure. I wore a surgical cap, mask with protective eyewear, full gown and sterile gloves throughout the procedure. The patient was placed in Trendelenburg position, with head turned 30 degrees away from the insertion site. The Right [_] neck was prepped using chlorhexidine scrub and draped in sterile fashion using a three quarter sheet drape and sterile towels. Skin preparation was allowed to dry prior to skin puncture. Anatomic landmarks were identified. Anesthesia was achieved over the vein using 3 ml of 1% lidocaine. Using real- time ultrasound, with sterile probe cover and sterile gel, the Right Internal Jugular Vein was identified on ultrasound using the linear ultrasound probe in the transverse orientation. The carotid artery was identified and avoided utilizing color-flow. The Internal Jugular Vein was then placed in the center of the ultrasound field and compressed for patency. The introducer needle was inserted into the vein under direct ultrasound visualization, and a movement artifact was identified as the needle was advanced through the skin toward the vessel. A real-time hyperechoic signal revealed visualization of vascular needle entry into the lumen as blood was noted to flashback in the syringe. The needle was then held in place, the syringe was removed, and the guide wire was advanced through the needle. Direct visualization of the guide wire location within the vein was noted on ultrasound, indicating proper placement. The needle was then removed. A small incision was made at the skin surface with a scalpel, and a skin dilator was advanced over the guide wire. After appropriate dilation was obtained, the dilator was removed, and a triple-lumen catheter was then advanced over the guide wire into proper position. The guide wire was removed and discarded. The ports were aspirated, which showed good blood return, and then carefully flushed with normal saline. The catheter was stabilized and sutured to the skin with 2- 0 silk at two anchor points. A sterile op-site was placed over the catheter and biopatch. The patient tolerated the procedure without any hemodynamic compromise. Estimated blood loss: 5 ml Post-procedure chest x-ray: Shows proper positioning of the catheter for use. SARAI WILSON Dec 02, 2024 09:48
[2024-12-02] MEDS: IOHEXOL 350 MG/ML 100ML IJ ONE (10:10)
[2024-12-02 10:23] LABS: INR 0.98 (0.9-1.15); Prothrombin Time 10.4 sec (9.3-11.8)
--- NOTE | 2024-12-02 11:43 | DVH ---
CTA Chest with intravenous contrast INDICATION: R/O PE COMPARISON: None TECHNIQUE: Multidetector spiral CTA of the chest was performed of the chest with intravenous contrast . PULMONARY ANGIOGRAPHY PROTOCOL was utilized using a bolus-tracking technique centered on the main p ulmonary artery. Axial, coronal and sagittal multiplanar and MIP reformats were performed. CONTRAST: Type of contrast: Omni 350 Contrast injected: 67 ml Radiation dose : Chest: CTDI volume is 23.48 mGy. Dose-length product is 861.98 mGy*cm The dose indicators for CT are the volume computed Tomography (CT) dose Index (CTDIvol) and the dose Length product (DLP), and are measured in units of mGy and mGy-cm, respectively. These indicators are not patient dose, but values generated from the CT scanner acquisition factors. The report includes radiation exposure data for exposures received during this examination. Findings: Pulmonary artery: No pulmonary embolism Lower neck: Endotracheal tube and nasogastric tube in place. Lungs: Mild patchy consolidation in the lung bases. Mild septal thickening. Heart/Vascular Structures: Normal heart size. No pericardial effusion. Lymph Nodes: Mildly prominent mediastinal and hilar lymph nodes. Pleura: No pleural effusion or significant pneumothorax. Musculoskeletal: No acute osseous abnormality. Soft tissues: Normal. Upper abdomen: Limited portions of the upper abdomen are unremarkable. IMPRESSION: 1. No pulmonary embolism. 2. Mild patchy airspace disease in the lung bases. Infectious/inflammatory process is not excluded. Septal thickening suggest fluid overload. Mediastinal and hilar lymphadenopathy. Clinical correlatio n and continued follow-up is recommended. HS:Y
[2024-12-02 12:30] LABS: Base Excess 9.1 mmol/L (-2.0-3.0)
[2024-12-02] MEDS: POTASSIUM CHL 20MEQ/100ML 100 ML IV ONE (13:00)
--- NOTE | 2024-12-02 16:24 | DVH ---
Procedure: XY KUB ABDOMEN SINGLE VIEW Study Date and Requested Time: 12/02/2024 03:53 PM History: free air in diaphragm Technique: 2 views of the abdomen and pelvis available for evaluation. Comparison: None Findings/ Impression: Enteric tube is in satisfactory position. Partially visualized central venous catheter terminating wi thin the proximal right atrium /superior cavoatrial junction. Nonspecific bowel gas pattern. No evidence of bowel obstruction or ileus. Moderate amount of fecal ma terial within the colon. Phleboliths are noted within the pelvis. No evidence of acute bony abnormal ities. Bilateral lung bases are clear.
[2024-12-02 18:12] LABS: COVID19 ANTIGEN SOFIA FIA NEGATIVE (NEGATIVE); Rapid Influenza A Negative (Negative); Rapid Influenza B Negative (Negative)
--- NOTE | 2024-12-02 18:26 | DVHPNRES ---
Progress Note Date Seen: Dec 02, 2024 Resident Creating Document: ALDAIR VILLEGAS RESIDENT Has the PT tested + for MRSA If YES, has PT been informed?: No Medical Necessity Reason Pt with a Central, PICC or Fol: Yes The following are medically ne: Central Line, Palacios Catheter Reason for palacios catheter: Strict I&O, Total Immobilization Subjective Review of Systems 64-year-old female patient with past medical history of COPD, heart failure, asthma, anxiety, depression, panic attacks, psoriasis , patient was brought to the hospital on December 01 with a chief complaint of shortness of breaths for the past 5 days before admission, she was started on breathing treatments, at the time mucus was noted to be on 190s and patient was lethargic, tachypneic and tachycardic, per family patient had flu symptoms a couple of days prior to admission, ABG at that time showed marked respiratory acidosis with pCO2 on the 170s, in the ER they decided for intubation. Laboratory results showed leukocytosis, anemia with a hemoglobin at 9 and BNP in the 40s, the patient was started antibiotics and echocardiogram was ordered (60% ejection fraction), regarding other medications on admission patient received med neb, hydrocortisone, cefepime and vancomycin other than the pressors and sedative drips. Today, patient was examined still under mechanical ventilation regarding CBC still on leukocytosis but with some improvement hemoglobin went down delayed 0.6 D-dimer slightly elevated 1.64, transaminitis, findings in the CMP showed mild hypokalemia, elevation in the creatinine level consistent with a NICKY on chronic kidney disease as GFR went down 43, but the anion gap was normal: 12. ABGs were improved min over time, since admission with the patient was found to have 7, serial 9 then on 12/01 at 4:00 p.m. the patient ABG showed improvement 7, 38 the pH and on December 02 at 7:00 a.m. ABG showed pCO2 42, PO2 on 88 and a pH on 7.52 for which the setting were decreased until 22 and then readjusted in the afternoon until 18. Subsequent ABG showed normalized values. Chest x-ray showing bibasilar opacities consistent with pulmonary vascular congestion. Patient noted with an open ulcer to her right abdominal fold measuring 1x2cm, there is significant scar tissue to periwound, base of open ulcer noted with pink granulated tissue, small serosanguineous drainage noted on previous dressing, wound care rendered as ordered. Patient turned to her right side, patient noted with two open ulcer on her medical sacrum (1.5x0.5cm) and left buttock (0.5x0.5cm), the etiology of these wounds is unknown at this time, the skin between both ulcers is noted with dark discoloration and erythema, skin is not boggy, wound culture obtained from sacral wound and sent to lab via Nitro[facility] system for further testing as ordered. Wound care was consulted. wound culture ordered. Changes from previous H/P or p: Changes Objective vital signs Vital Sign Date Time Temp Pulse Resp B/P (MAP) Pulse Ox O2 Delivery O2 Flow Rate FiO2 12/02/24 16:39 103/39 12/02/24 16:20 59 18 100 30 12/02/24 16:00 Mechanical Ventilator+ 12/02/24 14:30 97.6 97.6 Total Intake and Output 12/01/24 12/01/24 12/02/24 15:00 23:00 07:00 Intake Total 32.5 ml 377.15 ml 690.96 ml Output Total 350 ml 900 ml Balance 32.5 ml 27.15 ml -209.04 ml medications Current Medications Medications Dose Ordered Sig/Oswaldo Route Start Time Stop Time Status Last Admin Dose Admin Midazolam HCl 50 ml @ 1 mls/hr Q24H IV 12/01/24 13:00 12/02/24 16:13 15 MLS/HR Fentanyl Citrate 250 ml @ 2.5 mls/hr Q24H IV 12/01/24 14:30 12/02/24 13:31 35 MLS/HR Norepinephrine Bitartrate 250 ml @ 3.75 mls/hr Q24H IV 12/01/24 18:15 12/02/24 09:44 22.5 MLS/HR Propofol 100 ml @ 2.73 mls/hr Q24H IV 12/01/24 20:00 12/02/24 16:39 8.19 MLS/HR Vancomycin HCl 0 ml @ 0 mls/hr UD IV 12/01/24 21:15 Enoxaparin Sodium 40 mg DAILY SC 12/02/24 10:00 12/02/24 09:28 40 MG Acetaminophen 650 mg Q6HP PRN PO 12/01/24 22:30 12/01/24 23:34 650 MG Levalbuterol HCl 1.25 mg Q6HR NEB 12/02/24 00:00 12/02/24 12:01 1.25 MG Ipratropium [place] 0.5 mg Q6HR NEB 12/02/24 00:00 12/02/24 12:01 0.5 MG Lactulose 30 ml BID PO 12/02/24 10:00 12/02/24 09:44 30 ML Pantoprazole Sodium 40 mg DAILY IV 12/01/24 22:45 12/02/24 09:28 40 MG Hydrocortisone Sodium Succinate 50 mg Q6HR IV 12/02/24 00:00 12/02/24 11:41 50 MG Cefepime/Dextrose 50 ml @ 16.667 mls/ hr Q12H IV 12/03/24 00:00 Examination Examination General Appearance: On mechanical ventilation Respiratory: Clear to auscultation, Normal air movement Cardiovascular: Regular rate, Normal S1, Normal S2 Abdominal: Absent bowel sounds, abdomen very distended, Extremities: No cyanosis, No edema, Normal pulses, No tenderness/swelling Skin: Supracondylar pink lesions consistent with skin psoriasis, groin/neck/armpit/perianal scars in the skin with a open wound in the lower abdomen and lower back. Neuro: Pupils are reactive but sluggish 3 mm, gag reflex is present. laboratory and microbiology Laboratory Tests 12/02/24 04:26 Test 12/02/24 04:26 Range/Units Serum Glucose 182 H 74-106 mg/dL Microbiology Date/Time Source Procedure Growth Status 12/01/24 13:20 Blood Blood Culture - Preliminary NO GROWTH AFTER 24 HOURS OF INCUBATION. Resulted 12/01/24 12:58 Sputum Gram Stain - Final Resulted 12/01/24 12:58 Sputum Respiratory Culture - Preliminary Resulted Problem List/Assessment/Plan Problem List/Assessment/Plan Neurology #sedated under mechanical ventilation #Acute hypoxic hypercarbic respiratory failure likely due to COPD exacerbation due to community acquired pneumonia #? septic shock due to skin abscesses due to hydradenitis suppurativa? - head ct negative - sedatives and pressors - antibiotics -wound culture - wound care -surgical consult cardiovascular #septic shock due to CAP/ HS? #Possible acute on chronic diastolic heart failure #Aortic atherosclerosis Respiratory #Acute hypercapnic respiratory failure likely due to COPD exacerbation due to Gram-positive/Gram-negative bacterial pneumonia, ?skin abscess in the setting of ? Hydradenitis suppurativa Vasquez II/III #mechanical ventilation # community acquired penumonia #acute on chronic diastolic heart failure #pulmonary vascular congestion #COPD exacerbation Endocrine #type 2 obesity #metabolic syndrome #skin psoriasis skin #skin graft scar (old) in right leg ? previous large wound closure for HS? #Skin psoriasis #Hidradenitis suppurativa - pancultures -wound culture - surgical eval -iv antibiotics -wound care consult Acute abdominal distention likely due to constipation -Place Ng tube -Lactulose 30cc BID Hx of anxiety, depression and panic attacks -Patient is currently sedated and intubated -Monitor GI prophylaxis -IV pantoprazole 40mg daily DVT prophylaxis -Enoxaparin 40mg sc daily Central line placed on right internal jugular vein on 12/01/24 case discussed with critical care : time spent not including procedures: 83 minutes full code Plan discussed with: Other My Orders My Orders Orders - ALDAIR VILLEGAS RESIDENT Procedure Category Date Status Time Abg W/ Co-Ox RT 12/02/24 Logged 12:00 Ventilator Orders RT 12/02/24 Transmitted 11:00 * Wound Consult CONS 12/02/24 Transmitted Clostridium Difficile ROSETTA 12/02/24 Uncollected Toxin 14:01 Wound Culture W/ Gs ROSETTA 12/02/24 In Process 14:20 Kub Abdomen Single XY 12/02/24 Resulted View 15:47 Cleanse Wound With PIERO 12/02/24 In Process Wound Clean 14:00 * Dietary Consult CONS 12/02/24 Transmitted 16:08 Potassium LAB 12/02/24 Logged 17:37 Date of Service: Dec 02, 2024 Billing Provider: SHAWNA ORELLANA MD Common Visit Codes: NOT BILLABLE ALDAIR VILLEGAS RESIDENT Dec 02, 2024 18:26 SHAWNA ORELLANA MD Dec 05, 2024 10:56
--- NOTE | 2024-12-02 18:43 | DVHSR ---
APPROVED REPORT EXAM: LIMITED Two-dimensional and M-mode echocardiogram with Doppler and color Doppler. Blood Pressure: 121/61 mmHg INDICATION R/O CHF and structural heart abn RISK FACTORS Obesity: Height: 5'4, Weight: 200 DIMENSIONS LVDd2.9 (3.8-5.7cm)LA (2D) (1.9-4.0cm)Aortic Root2.4 (2.0-3.7cm) LVDs1.5 (2.5-4.0cm)LA (MM) (1.9-4.0cm)Aortic Cusp Exc1.1 (1.5-2.0cm) EF (%) 65.0 (55-70%)Rt. Atrium (1.9-4.0cm)Asc. Aorta cm IVSd1.5 (0.7-1.1cm)RV (D) (1.8-2.4cm) PWd1.3 (0.7-1.1cm) Mitral Valve MitralMitral Stenosis E/A ratio0.02D MVAcm2 Aortic Valve Aortic ValveAortic Stenosis LVOT Diameter2.1 (1.8-2.4cm)Doppler AVAcm2 Tricuspid Valve TR Velocity2.37m/s [id number] Other Information Quality : Technically LimitedRhythm : Technically limited study due to body habitus.on vent.patient position. Conclusion Technically good study. Sinus rhythm. Concentric LVH. Aortic root enlargement. Mild left atrial enlargement. RVH. Valves appear to be structurally normal. Left ventricular function is preserved at 60% with normal RV function Impaired diastolic relaxation. Mild TR. No pericardial effusion masses or vegetations noted
[2024-12-02] MEDS: CEFEPIME 2GM/50ML 50 ML IV SCH (23:45)
[2024-12-03] VITALS (114 sets, daily range): BP systolic 101–141; BP diastolic 36–72; PULSE 48–89; RESP 17–22; TEMP 97.5–99.1; O2SAT 86–100
[2024-12-03] MEDS: ALBUTEROL SULF 2.5 MG/0.5ML(0.5%) NEB SOLN NEB PRN (02:53)
[2024-12-03 04:07] LABS: Basophils # (auto) 0 10 ^3/uL (0-0.2); Hemoglobin 8.4 g/dL (12.2-16.2); Mean Corpuscular Volume 85.8 fL (80.0-100.0); Monocytes # (auto) 0.7 10 ^3/uL (0-1.3); Platelet Count (auto) 248 10^3/uL (140-450); White Blood Cell 14.4 10^3/uL (4.4-10.8)
[2024-12-03 04:09] LABS: Basophils % (auto) 0.3 % (0.0-2.0); Eosinophils # (auto) 0 10 ^3/uL (0-0.8); Eosinophils % (auto) 0.2 % (0.0-7.0); Hematocrit 26.9 % (36.0-46.0); Lymphocytes # (auto) 0.6 10 ^3/uL (0.4-5.4); Lymphocytes % (auto) 4.5 % (10.0-50.0); Mean Corpuscular Hemoglobin 26.8 pg (28.0-32.0); Mean Corpuscular Hgb Conc. 31.3 g/dL (32.0-36.0); Nucleated Red Blood Cells % 0.1 %; Red Blood Cells 3.14 10^6/uL (4.0-5.20); Red Cell Distribution Width 18.1 % (11.8-14.3)
[2024-12-03 04:26] LABS: Albumin 3.8 g/dL (3.2-4.8); Alkaline Phosphatase 57 U/L (46-116); Anion Gap 9 (5-15); BUN/Creatinine Ratio 19.2 (10.0-20.0); Blood Urea Nitrogen 19 mg/dL (9-23); Chloride 104 mmol/L (98-107); Potassium 3.9 mmol/L (3.5-5.1); Sodium 144 mmol/L (136-145); Total Protein 6.9 g/dL (5.7-8.2)
[2024-12-03 04:35] LABS: Alanine Aminotransferase 44 U/L (7-40); Aspartate Aminotransferase 225 U/L (13-40); Bilirubin, Total 0.2 mg/dL (0.2-1.0); Carbon Dioxide 31 mmol/L (20-31); Glucose 140 mg/dL (74-106)
--- NOTE | 2024-12-03 05:44 | DVH ---
CHEST RADIOGRAPH Indication: intubated Technique: Single frontal view of the chest was obtained COMPARISON: XY CHEST XRAY 1 VIEW on DOS: 12/01/24, XY CHEST PORTABLE on DOS: 12/01/24, XY CHEST PORTABL E on DOS: 12/01/24 FINDINGS: Lines and Tubes: Endotracheal tube, enteric catheter and right central venous catheter in satisfactor y position. Lungs: Diffuse increased interstitial prominence. Pleura: No effusion. No pneumothorax. Cardiomediastinal contours: Cardiomegaly Bones: Unremarkable IMPRESSION: Lines and tubes in satisfactory position. No significant interval change.
[2024-12-03 08:22] LABS: Base Excess 5.7 mmol/L (-2.0-3.0)
--- NOTE | 2024-12-03 10:20 | DVHPN2 ---
Assessment/Plan Assessment/Plan ICU progress note 64-year-old female with COPD, half pack, psoriasis, hs, asthma admitted to the ICU for acute hypercarbic hypoxic respiratory failure, intubated and placed on mechanical ventilation. Patient also had septic shock. Seen today during rounds, pending surgery consult, weaning pressors, c/w current treatment. fluid challenge and bowel reg. hold tf for now. NG to LIS Physical exam Intubated, mechanically ventilated PERRLA Mechanical breath sound Regular rate and rhythm Abdomen distended, minimal bowel sound Skin with psoriasis rashes Lower abdomen with open wound with granulomatous base Labs imaging and EKG reviewed Assessment and plan Acute hypoxic hypercarbic respiratory failure Requiring mechanical ventilation Septic shockRequiring pressors Acute on chronic diastolic heart failure COPD group E with exacerbation NICKY likely be [place], resolved Community-acquired pneumonia, Gram-negative versus Gram-positive Skin abscess secondary to HS? Psoriasis Constipation Anxiety Depression Panic attacks Obesity continue with mechanical ventilation maintain spo2 >92 continue with sedation maintain RASS -3 Continue with antibiotic coverage vanc and cefepime stress dose steroid Continue with pressors, maintain map above 65 Surgical consult Wound care Bowel regimen, add miralax senna NG to LIS fluid challange Lines Right IJ TLC Cavazos NG tube Diet tube feeding hold DVT prophylaxis Lovenox GI prophylaxis Protonix Condition critical poor prognosis Full code 79 minutes of critical care time spent Plan discussed with: Other Date of Service: Dec 03, 2024 Billing Provider: JERRY HANSON MD Common Visit Codes: [id number] CARE 30-74 MIN, [id number] CARE-EACH +30MIN JERRY HANSON MD Dec 03, 2024 10:20
[2024-12-03] MEDS: SODIUM CHLORIDE 0.9% 500 ML IV ONE (10:50)
[2024-12-03] MEDS: ALBUTEROL SULF 2.5 MG/0.5ML(0.5%) NEB SOLN NEB SCH (11:14)
[2024-12-03] MEDS: IPRATROPIUM BROM 0.5 MG/2.5ML INH SOL NEB SCH (11:14)
[2024-12-03] MEDS: POLYETHYLENE GLYCOL 17 GM PWDR PO ONE (13:05)
[2024-12-03] MEDS: SENNA 8.6 MG TAB PO ONE (13:05)
[2024-12-03] MEDS: FUROSEMIDE 20 MG/2 ML VIAL IV ONE (15:39)
[2024-12-03] MEDS ORDERED: FERR325T24 PO (16:07)
[2024-12-03] MEDS ORDERED: NITR0.4S29 SL (16:07)
[2024-12-03] MEDS ORDERED: FURO1TAB31 PO (16:07)
[2024-12-03] MEDS ORDERED: FORM20NE3 IN (16:07)
[2024-12-03] MEDS ORDERED: CLON0.1T PO (16:07)
[2024-12-03] MEDS ORDERED: PRED10TA PO (16:07)
[2024-12-03] MEDS ORDERED: TRIA0.5C TOP (16:07)
[2024-12-03] MEDS ORDERED: VENL75CA78 PO (16:07)
[2024-12-03] MEDS ORDERED: FLUT1AER5 IN (16:07)
[2024-12-03] MEDS ORDERED: QUET50TA PO (16:07)
[2024-12-03] MEDS ORDERED: LOSA-534 PO (16:07)
[2024-12-03] MEDS: VANCOMYCIN 750MG KIT 100 ML IV SCH (17:06)
[2024-12-03] MEDS: CEFEPIME 2 GM/50 ML IV SCH (18:20)
[2024-12-03] MEDS: [UNRECOGNIZED DRUG - OTHER] IV SCH (18:20)
--- NOTE | 2024-12-03 19:08 | DVHINCON2 ---
Date of service: Dec 03, 2024 Family History: Chronic obstructive lung disease (situation) G8 FATHER Family history: Asthma G8 MOTHER, G8 FATHER Allergies: Coded Allergies: Sulfa Drugs (Verified Allergy, Unknown, 12/01/24) Home Meds Reported Medications Furosemide (Lasix) 40 Mg Tab, 40 MG PO DAILY, TAB 12/03/24 Ferrous Sulfate (Ferrous Sulfate) 325 Mg Tab, 325 MG PO BIDWM for 30 Days, MG 12/03/24 Clonidine Hydrochloride (Clonidine Hcl) 0.1 Mg Tab, 0.1 MG PO BID for 30 Days, MG 12/03/24 Losartan Potassium (Losartan Potassium) 50 Mg Tab, 1 TAB PO DAILY, #30 TAB 5 Refills 12/03/24 Nitroglycerin (NTROSTAT SUBLINGUAL) 0.4 Mg Sl, 0.4 MG SL PRN PRN for FOR CHEST PAIN, TAB *MAY REPEAT EVERY 5 MINUTES X 3 TOTAL IF NO RELIEF, INITIATE ANALGESIC THERAPY. NOTIFY PHYSICIAN *Do not crush. 12/03/24 Venlafaxine Hcl (Venlafaxine Hcl Er) 75 Mg Cap, 1 CAP PO DAILY, #90 CAP 3 Refills 12/03/24 Triamcinolone Acetonide (Triamcinolone Acetonide) 0.5 % Cre, 1 APPLIC TOP BID, APPLIC 12/03/24 Fluticasone-Salmeterol (Wixela Inhub 100-50 Mcg/Dose) 1 Aer Aer, 1 AER IN BID, AER 12/03/24 Formoterol Fumarate Dihydrate (Formoterol Fumarate) 20 Mcg/2 Ml Neb, 20 MCG IN BID, INH 12/03/24 Quetiapine Fumerate (Seroquel) 50 Mg Tab, 50 MG PO DAILY for 30 Days, MG 12/03/24 Prednisone (Prednisone) 10 Mg Tab, 10 MG PO DAILY, MG 12/03/24 Current Medications Current Medications Medications (Trade) Dose Ordered Sig/Oswaldo Route PRN Reason Start Time Stop Time Status Last Admin Cefepime/Dextrose 50 ml @ 16.667 mls/ hr Q12H IV 12/03/24 00:00 12/03/24 14:20 DC 12/03/24 11:50 Ipratropium [place] (Atrovent Medneb) 0.5 mg Q4HWA NEB 12/03/24 06:00 12/03/24 18:11 Albuterol (Ventolin Medneb) 2.5 mg Q4HWA NEB 12/03/24 06:00 12/03/24 18:11 Albuterol (Ventolin Medneb) 2.5 mg Q3HPRN PRN NEB SHORTNESS OF BREATH 12/03/24 01:15 12/03/24 02:53 Polyethylene Glycol (Miralax 17GM Powder) 17 gm DAILY PO 12/04/24 10:00 Sennosides (Senokot Tablet) 17.2 mg HS PO 12/03/24 22:00 Vancomycin HCl 100 ml @ 100 mls/hr Q18H IV 12/03/24 16:00 12/03/24 17:06 Cefepime HCl 50 ml @ 12.5 mls/hr Q8H IV 12/03/24 18:00 12/03/24 18:20 Vital Signs Vital Signs Date Time Temp Pulse Resp B/P (MAP) Pulse Ox O2 Delivery O2 Flow Rate FiO2 12/03/24 18:45 97.9 71 18 116/59 (78) 91 208.2 12/03/24 18:12 Mechanical Ventilator 12/03/24 18:12 30 30 Labs/Diagnostic Data Labs Test 12/03/24 07:44 12/03/24 03:01 12/02/24 16:30 12/02/24 16:04 Range/Units Blood Gas Specimen Type Arterial Blood Gas Sample Site Left radial Blood Gas Patient Temperature 37.0 Arterial Blood Date Drawn [id number] Arterial Blood pH 7.366 7.350-7.450 Arterial Blood Partial Pressure CO2 56.9 H 32.0-45.0 mmHg Arterial Blood Partial Pressure O2 81.2 L 83.0-108.0 mmHg Arterial Blood HCO3 31.9 H 21.0-28.0 mmol/L Arterial Blood Oxygen Saturation 94.8 94.0-98.0 % Arterial Blood Base Excess 5.7 H -2.0-3.0 mmol/L Arterial Blood Oxyhemoglobin 94.2 94.0-98.0 % Arterial Blood Carboxyhemoglobin 0.3 L 0.5-1.5 % Arterial Blood Methemoglobin 0.3 0.0-1.5 % Drake Test Modified Blood Gas Total Hemoglobin 7.90 L 12.0-16.0 g/dL Blood Gas Set Respiration Rate 18.0 Blood Gas Modality Vent - ac Blood Gas Spontaneous Rate 18 FiO2 % 40.0 Blood Gas Tidal Volume 400.0 Blood Gas Inspiratory Pressure 33.0 Blood Gas PEEP or CPAP 5.0 Bl Gas Inspiratory/Expiratory Ratio 1:3.6 Specimen Drawn By fito nixon White Blood Count 14.4 H 4.4-10.8 10^3/uL Red Blood Count 3.14 L 4.0-5.20 10^6/uL Hemoglobin 8.4 L 12.2-16.2 g/dL Hematocrit 26.9 L 36.0-46.0 % Mean Corpuscular Volume 85.8 80.0-100.0 fL Mean Corpuscular Hemoglobin 26.8 L 28.0-32.0 pg Mean Corpuscular Hemoglobin Concent 31.3 L 32.0-36.0 g/dL Red Cell Distribution Width 18.1 H 11.8-14.3 % Platelet Count 248 140-450 10^3/uL Mean Platelet Volume 8.2 6.9-10.8 fL Neutrophils (%) (Auto) 90.0 H 37.0-80.0 % Lymphocytes (%) (Auto) 4.5 L 10.0-50.0 % Monocytes (%) (Auto) 5.0 0.0-12.0 % Eosinophils (%) (Auto) 0.2 0.0-7.0 % Basophils (%) (Auto) 0.3 0.0-2.0 % Neutrophils # (Auto) 13.0 H 1.6-8.6 10 ^3/uL Lymphocytes # (Auto) 0.6 0.4-5.4 10 ^3/uL Monocytes # (Auto) 0.7 0-1.3 10 ^3/uL Eosinophils # (Auto) 0 0-0.8 10 ^3/uL Basophils # (Auto) 0 0-0.2 10 ^3/uL Nucleated Red Blood Cells 0.1 % Sodium Level 144 # 136-145 mmol/L Potassium Level 3.9 3.5-5.1 mmol/L Chloride Level 104 # 98-107 mmol/L Carbon Dioxide Level 31 20-31 mmol/L Anion Gap 9 5-15 Blood Urea Nitrogen 19 9-23 mg/dL Creatinine 0.99 0.550-1.02 mg/dL Glomerular Filtration Rate Calc 63 >90 mL/min BUN/Creatinine Ratio 19.2 10.0-20.0 Serum Glucose 140 H 74-106 mg/dL Calcium Level 10.0 8.7-10.4 mg/dL Total Bilirubin 0.2 0.2-1.0 mg/dL Aspartate Amino Transferase (AST) 225 H 13-40 U/L Alanine Aminotransferase (ALT) 44 H 7-40 U/L Alkaline Phosphatase 57 46-116 U/L Total Protein 6.9 5.7-8.2 g/dL Albumin 3.8 3.2-4.8 g/dL Random Vancomycin Level 9.3 5-10 ug/mL Influenza Type A Antigen Negative Negative Influenza Type B Antigen Negative Negative SARS-CoV-2 Antigen (Rapid) Negative NEGATIVE Lactic Acid Level 1.1 0.4-2.0 mmol/L Test 12/02/24 09:56 12/01/24 22:28 12/01/24 15:55 12/01/24 15:39 Range/Units Prothrombin Time 10.4 9.3-11.8 sec Prothrombin Time INR 0.98 0.9-1.15 D-Dimer, Quantitative 1.64 H 0.0-0.49 mg/L FEU Hemoglobin A1c 5.1 <5.7 % A1C Blood Gas Critical Value Read Back yes Blood Gas Notified Whom deisi Rhoades md Blood Gas Notified Time [id number] Blood Gas Notified By Cryptologic Technician fran rajput Troponin I High Sensitivity 26 </=34 ng/L Triglycerides Level 118 < 150 mg/dL Cholesterol Level 193 < 200 mg/dL LDL Cholesterol 110 H < 100 mg/dL HDL Cholesterol 56 40-59 mg/dL Test 12/01/24 12:55 12/01/24 12:30 12/01/24 12:24 Range/Units Urine Color Light-yellow Yellow Urine Clarity Clear Clear Urine pH 6.0 5.0-9.0 Urine Specific [place] 1.018 1.001-1.035 Urine Protein 1+ H Negative Urine Ketones Negative Negative Urine Blood Negative Negative /uL Urine Nitrite Negative Negative Urine Bilirubin Negative Negative Urine Urobilinogen Normal Negative mg/dL Urine Leukocyte Esterase Negative Negative /uL Urine RBC 1 0 - 4 /hpf Urine Microscopic WBC 1 0-5 /HPF Urine Squamous Epithelial Cells Few <5 /hpf Urine Bacteria None seen None Seen /hpf Urine Hyaline Casts Few 0 - 2 /lpf Urine Mucus Few None Seen Urine Glucose Normal Normal mg/dL Magnesium Level 2.0 1.6-2.6 mg/dL B-Type Natriuretic Peptide 42.90 0-100 pg/mL Blood Gas Liter Flow 8.00 Microbiology Date/Time Source Procedure Growth Status 12/02/24 16:30 Nose MRSA Screen - Final Complete 12/01/24 13:20 Blood Blood Culture - Preliminary NO GROWTH AFTER 48 HOURS OF INCUBATION. Resulted 12/01/24 12:58 Sputum Gram Stain - Final Resulted 12/01/24 12:58 Sputum Respiratory Culture - Preliminary Resulted Assessment [id number] R/O LOW BACK CELLULITIS/ABSCESS INTUBATED NO CLINICAL ABSCESS OR DRAINAGE NOTED CONTINUE CLOSE OBSERVATION IV ABX Plan discussed with: Other JOSEPH GLORIA MD Dec 03, 2024 19:08
[2024-12-03] MEDS: SENNA 8.6 MG TAB PO SCH (22:01)
--- NOTE | 2024-12-03 22:26 | DVHINCON2 ---
Date of service: Dec 03, 2024 Referring Physician Tr Barajas MD Reason for Consultation Acute on chronic hypercarbic respiratory failure requiring mechanical vent, COPD exacerbation, pulmonary edema. History of Present Illness A 64-year-old woman with past medical history of COPD, asthma, hypertension, hyperlipidemia, CHF, anxiety, panic attacks and depression who presented to ED via EMS on 12/01/24 due to shortness of breath associated with bilateral lower extremity swelling as well as mild bilateral hand swelling. Per Lisa (daughter), pt had flu-like symptoms a couple of days prior to admission. Apparently, pt had panic attacks the day before presenting to ED with trouble falling asleep and associated SOB, and EMS was called on day of presentation due to persistent SOB. EMS found pt hypoxic, tachycardic with low blood pressure and gasping for air. On admission, patient received multiple breathing treatments but ABG was showing respiratory acidosis with severe hypercapnia which required intubation. Initial labs showed a WBC of 16.6, hemoglobin of 9, BNP was grossly unremarkable. Troponins came back negative, BNP was 42.90 and EKG showing sinus tachycardia with no ST segment elevation or depression. Patient was admitted for further care and pulmonary consultation is requested for evaluation and management due to the above findings. Review of Systems: 14-point review of systems negative unless otherwise noted above. Past Medical History: COPD, asthma, hypertension, hyperlipidemia, CHF, anxiety, panic attacks and depression Past Surgical History: None Medications: Reviewed. Allergies: Sulfa Drugs Family History: COPD and asthma. Social History: Nonsmoker. No alcohol or illicit drug use. Family History: Chronic obstructive lung disease (situation) G8 FATHER Family history: Asthma G8 MOTHER, G8 FATHER Allergies: Coded Allergies: Sulfa Drugs (Verified Allergy, Unknown, 12/01/24) Home Meds Reported Medications Furosemide (Lasix) 40 Mg Tab, 40 MG PO DAILY, TAB 12/03/24 Ferrous Sulfate (Ferrous Sulfate) 325 Mg Tab, 325 MG PO BIDWM for 30 Days, MG 12/03/24 Clonidine Hydrochloride (Clonidine Hcl) 0.1 Mg Tab, 0.1 MG PO BID for 30 Days, MG 12/03/24 Losartan Potassium (Losartan Potassium) 50 Mg Tab, 1 TAB PO DAILY, #30 TAB 5 Refills 12/03/24 Nitroglycerin (NTROSTAT SUBLINGUAL) 0.4 Mg Sl, 0.4 MG SL PRN PRN for FOR CHEST PAIN, TAB *MAY REPEAT EVERY 5 MINUTES X 3 TOTAL IF NO RELIEF, INITIATE ANALGESIC THERAPY. NOTIFY PHYSICIAN *Do not crush. 12/03/24 Venlafaxine Hcl (Venlafaxine Hcl Er) 75 Mg Cap, 1 CAP PO DAILY, #90 CAP 3 Refills 12/03/24 Triamcinolone Acetonide (Triamcinolone Acetonide) 0.5 % Cre, 1 APPLIC TOP BID, APPLIC 12/03/24 Fluticasone-Salmeterol (Wixela Inhub 100-50 Mcg/Dose) 1 Aer Aer, 1 AER IN BID, AER 12/03/24 Formoterol Fumarate Dihydrate (Formoterol Fumarate) 20 Mcg/2 Ml Neb, 20 MCG IN BID, INH 12/03/24 Quetiapine Fumerate (Seroquel) 50 Mg Tab, 50 MG PO DAILY for 30 Days, MG 12/03/24 Prednisone (Prednisone) 10 Mg Tab, 10 MG PO DAILY, MG 12/03/24 Current Medications Current Medications Medications (Trade) Dose Ordered Sig/Oswaldo Route PRN Reason Start Time Stop Time Status Last Admin Cefepime/Dextrose 50 ml @ 16.667 mls/ hr Q12H IV 12/03/24 00:00 12/03/24 14:20 DC 12/03/24 11:50 Ipratropium [place] (Atrovent Medneb) 0.5 mg Q4HWA NEB 12/03/24 06:00 12/03/24 21:58 Albuterol (Ventolin Medneb) 2.5 mg Q4HWA NEB 12/03/24 06:00 12/03/24 21:58 Albuterol (Ventolin Medneb) 2.5 mg Q3HPRN PRN NEB SHORTNESS OF BREATH 12/03/24 01:15 12/03/24 02:53 Polyethylene Glycol (Miralax 17GM Powder) 17 gm DAILY PO 12/04/24 10:00 Sennosides (Senokot Tablet) 17.2 mg HS PO 12/03/24 22:00 12/03/24 22:01 Vancomycin HCl 100 ml @ 100 mls/hr Q18H IV 12/03/24 16:00 12/03/24 17:06 Cefepime HCl 50 ml @ 12.5 mls/hr Q8H IV 12/03/24 18:00 12/03/24 18:20 Vital Signs Vital Signs Date Time Temp Pulse Resp B/P (MAP) Pulse Ox O2 Delivery O2 Flow Rate FiO2 12/03/24 21:22 119/66 12/03/24 20:07 67 18 93 30 12/03/24 18:45 97.9 208.2 12/03/24 18:12 Mechanical Ventilator Physical Exam Gen.: Patient lying in bed in medical ICU. Sedated, intubated on mechanical ventilator. Head: Normocephalic, atraumatic. Eyes: PERRLA. Ears: Normal external anatomy. Throat: Endotracheal tube and orogastric tube in place. Neck: Supple, trachea midline. Chest: Transmitted breath sounds bilaterally. Decreased air entry bilaterally. No wheezing. Bibasilar crackles. Cardiovascular: Positive S1, positive S2. Regular rate and rhythm. Abdomen: Positive bowel sounds in all 4 quadrants. Soft, nontender, nondistended. : Cavazos in place. Normal external genitalia. Rectal: Deferred. Skin: Warm, dry. Intact. Extremities: 2+ radial pulses bilaterally. No lower extremity edema. Neuro: Sedated. Labs/Diagnostic Data Labs Test 12/03/24 07:44 12/03/24 03:01 12/02/24 16:30 12/02/24 16:04 Range/Units Blood Gas Specimen Type Arterial Blood Gas Sample Site Left radial Blood Gas Patient Temperature 37.0 Arterial Blood Date Drawn [id number] Arterial Blood pH 7.366 7.350-7.450 Arterial Blood Partial Pressure CO2 56.9 H 32.0-45.0 mmHg Arterial Blood Partial Pressure O2 81.2 L 83.0-108.0 mmHg Arterial Blood HCO3 31.9 H 21.0-28.0 mmol/L Arterial Blood Oxygen Saturation 94.8 94.0-98.0 % Arterial Blood Base Excess 5.7 H -2.0-3.0 mmol/L Arterial Blood Oxyhemoglobin 94.2 94.0-98.0 % Arterial Blood Carboxyhemoglobin 0.3 L 0.5-1.5 % Arterial Blood Methemoglobin 0.3 0.0-1.5 % Drake Test Modified Blood Gas Total Hemoglobin 7.90 L 12.0-16.0 g/dL Blood Gas Set Respiration Rate 18.0 Blood Gas Modality Vent - ac Blood Gas Spontaneous Rate 18 FiO2 % 40.0 Blood Gas Tidal Volume 400.0 Blood Gas Inspiratory Pressure 33.0 Blood Gas PEEP or CPAP 5.0 Bl Gas Inspiratory/Expiratory Ratio 1:3.6 Specimen Drawn By fito nixon White Blood Count 14.4 H 4.4-10.8 10^3/uL Red Blood Count 3.14 L 4.0-5.20 10^6/uL Hemoglobin 8.4 L 12.2-16.2 g/dL Hematocrit 26.9 L 36.0-46.0 % Mean Corpuscular Volume 85.8 80.0-100.0 fL Mean Corpuscular Hemoglobin 26.8 L 28.0-32.0 pg Mean Corpuscular Hemoglobin Concent 31.3 L 32.0-36.0 g/dL Red Cell Distribution Width 18.1 H 11.8-14.3 % Platelet Count 248 140-450 10^3/uL Mean Platelet Volume 8.2 6.9-10.8 fL Neutrophils (%) (Auto) 90.0 H 37.0-80.0 % Lymphocytes (%) (Auto) 4.5 L 10.0-50.0 % Monocytes (%) (Auto) 5.0 0.0-12.0 % Eosinophils (%) (Auto) 0.2 0.0-7.0 % Basophils (%) (Auto) 0.3 0.0-2.0 % Neutrophils # (Auto) 13.0 H 1.6-8.6 10 ^3/uL Lymphocytes # (Auto) 0.6 0.4-5.4 10 ^3/uL Monocytes # (Auto) 0.7 0-1.3 10 ^3/uL Eosinophils # (Auto) 0 0-0.8 10 ^3/uL Basophils # (Auto) 0 0-0.2 10 ^3/uL Nucleated Red Blood Cells 0.1 % Sodium Level 144 # 136-145 mmol/L Potassium Level 3.9 3.5-5.1 mmol/L Chloride Level 104 # 98-107 mmol/L Carbon Dioxide Level 31 20-31 mmol/L Anion Gap 9 5-15 Blood Urea Nitrogen 19 9-23 mg/dL Creatinine 0.99 0.550-1.02 mg/dL Glomerular Filtration Rate Calc 63 >90 mL/min BUN/Creatinine Ratio 19.2 10.0-20.0 Serum Glucose 140 H 74-106 mg/dL Calcium Level 10.0 8.7-10.4 mg/dL Total Bilirubin 0.2 0.2-1.0 mg/dL Aspartate Amino Transferase (AST) 225 H 13-40 U/L Alanine Aminotransferase (ALT) 44 H 7-40 U/L Alkaline Phosphatase 57 46-116 U/L Total Protein 6.9 5.7-8.2 g/dL Albumin 3.8 3.2-4.8 g/dL Random Vancomycin Level 9.3 5-10 ug/mL Influenza Type A Antigen Negative Negative Influenza Type B Antigen Negative Negative SARS-CoV-2 Antigen (Rapid) Negative NEGATIVE Lactic Acid Level 1.1 0.4-2.0 mmol/L Test 12/02/24 09:56 12/01/24 22:28 12/01/24 15:55 12/01/24 15:39 Range/Units Prothrombin Time 10.4 9.3-11.8 sec Prothrombin Time INR 0.98 0.9-1.15 D-Dimer, Quantitative 1.64 H 0.0-0.49 mg/L FEU Hemoglobin A1c 5.1 <5.7 % A1C Blood Gas Critical Value Read Back yes Blood Gas Notified Whom deisi Rhoades md Blood Gas Notified Time [id number] Blood Gas Notified By Plasterer Apprentice fran rajput Troponin I High Sensitivity 26 </=34 ng/L Triglycerides Level 118 < 150 mg/dL Cholesterol Level 193 < 200 mg/dL LDL Cholesterol 110 H < 100 mg/dL HDL Cholesterol 56 40-59 mg/dL Test 12/01/24 12:55 12/01/24 12:30 12/01/24 12:24 Range/Units Urine Color Light-yellow Yellow Urine Clarity Clear Clear Urine pH 6.0 5.0-9.0 Urine Specific [place] 1.018 1.001-1.035 Urine Protein 1+ H Negative Urine Ketones Negative Negative Urine Blood Negative Negative /uL Urine Nitrite Negative Negative Urine Bilirubin Negative Negative Urine Urobilinogen Normal Negative mg/dL Urine Leukocyte Esterase Negative Negative /uL Urine RBC 1 0 - 4 /hpf Urine Microscopic WBC 1 0-5 /HPF Urine Squamous Epithelial Cells Few <5 /hpf Urine Bacteria None seen None Seen /hpf Urine Hyaline Casts Few 0 - 2 /lpf Urine Mucus Few None Seen Urine Glucose Normal Normal mg/dL Magnesium Level 2.0 1.6-2.6 mg/dL B-Type Natriuretic Peptide 42.90 0-100 pg/mL Blood Gas Liter Flow 8.00 Microbiology Date/Time Source Procedure Growth Status 12/02/24 16:30 Nose MRSA Screen - Final Complete 12/01/24 13:20 Blood Blood Culture - Preliminary NO GROWTH AFTER 48 HOURS OF INCUBATION. Resulted 12/01/24 12:58 Sputum Gram Stain - Final Resulted 12/01/24 12:58 Sputum Respiratory Culture - Preliminary Resulted Assessment Impression: Acute on chronic hypercarbic respiratory failure On mechanical ventilator Acute exacerbation of COPD Pulmonary edema Obesity Plan: s/p intubation on mechanical ventilator. CXR image and report reviewed. Devices in place. Pulmonary edema. No pneumothorax. No pleural effusion. ABG reviewed, compensated. On AC mode; RR 18, VT 400, PEEP 5, FiO2 35% Taper FiO2 to 30% Titrate FIO2 to keep O2 saturation between 88-94%. Chronic CO2 retainer VAP bundle. Daily ABG and CXR while intubated Sedate for ventilator synchrony - on Versed/Fentanyl Continue bronchodilators. Continue antibiotics. Continue steroids On pressors for hemodynamic support Levophed 4 mcg/min Titrate to keep mean arterial pressure greater than 65 mmHg. Received Lasix 20 mg IVP for pulmonary edema Monitor renal function Monitor electrolytes. Supplement as necessary. Monitor ins and outs. Potassium supplementation Diet and lifestyle modifications for weight reduction Obesity - complicates all care GI prophylaxis. DVT prophylaxis. Prognosis: Poor given patient's multiple co-morbidities. Condition: Critical Rest of plan per hospitalist and other consultants. A total of 35 minutes of critical care time was spent reviewing the patient record, examining the patient, making a diagnostic and therapeutic plan, discussing this plan with the medical personnel, following up on diagnostic studies and following the patient for clinical stability excluding any and all procedures. At least 50% of this time was spent in direct, [id number] contact. Thank you, Dr. Barajas, for allowing me to participate in this patient's care. Further recommendations will depend on the patient's clinical course. Please do not hesitate to contact me if you have any questions or concerns. This medical document was created using an electronic medical record system with [employer] dictation system. Although these documentations are being carefully reviewed, there may still be some phonetic and typographical changes. The errors are purely typographical, due to imperfection on the software program, and do not reflect any compromise in the patient's medical care. Plan discussed with: Other (DORY Jacobson/Dr. Barajas) LOGAN NAVARRO MD Dec 03, 2024 22:26
[2024-12-04] VITALS (115 sets, daily range): BP systolic 85–136; BP diastolic 35–67; PULSE 62–87; RESP 13–39; TEMP 97.2–99; O2SAT 66–100
--- NOTE | 2024-12-04 02:43 | DVHINCON2 ---
This is a consultation done at the request of Ethan Espinoza. HISTORY OF PRESENT ILLNESS: The patient is 64-year-old, unable to give history. She is intubated and most of the information is obtained from the nursing staff and from the records. She has history of hypertension, COPD, CHF, got intubated due to respiratory insufficiency and I was asked to see her with regards to a nonhealing wound, low back. She has history of psoriasis and she also was having some flu symptoms prior to admission. PAST MEDICAL HISTORY: CHF, hypertension, asthma, COPD. PAST SURGICAL HISTORY: Not available. PHYSICAL EXAMINATION: GENERAL: Intubated. VITAL SIGNS: Afebrile, stable signs. HEENT: With no evidence of pallor, cyanosis, or jaundice. NECK: Supple, nontender with no thyromegaly, lymphadenopathy. CHEST AND LUNGS: Clear. HEART: Within normal limits. ABDOMEN: Soft. NEUROLOGIC: Not assessed. SKIN: Low back examination reveals a slow healing wound with no abscess formation. No cellulitis. PLAN: At this point, no indication for urgent surgery. Please manage it conservatively and close observation. Issac Chao MD RG/HEM TID: [id number] RECEIPT: [id number] cc: Ethan Escobar
[2024-12-04 04:10] LABS: Basophils # (auto) 0 10 ^3/uL (0-0.2); Eosinophils # (auto) 0 10 ^3/uL (0-0.8); Hemoglobin 7.6 g/dL (12.2-16.2); Mean Corpuscular Volume 85.6 fL (80.0-100.0); Monocytes # (auto) 0.7 10 ^3/uL (0-1.3)
[2024-12-04 04:14] LABS: Basophils % (auto) 0.2 % (0.0-2.0); Eosinophils % (auto) 0.1 % (0.0-7.0); Hematocrit 24.9 % (36.0-46.0); Lymphocytes % (auto) 8.8 % (10.0-50.0); Mean Corpuscular Hemoglobin 26.2 pg (28.0-32.0); Mean Corpuscular Hgb Conc. 30.7 g/dL (32.0-36.0); Monocytes % (auto) 6.7 % (0.0-12.0); Neutrophils # (auto) 9.4 10 ^3/uL (1.6-8.6); Neutrophils % (auto) 84.2 % (37.0-80.0); Nucleated Red Blood Cells % 0.3 %; Platelet Count (auto) 270 10^3/uL (140-450); Red Blood Cells 2.91 10^6/uL (4.0-5.20); White Blood Cell 11.1 10^3/uL (4.4-10.8)
[2024-12-04 04:20] LABS: Anion Gap 7 (5-15); Potassium 3.5 mmol/L (3.5-5.1)
[2024-12-04 04:21] LABS: Calcium 9.5 mg/dL (8.7-10.4)
[2024-12-04 04:26] LABS: Blood Urea Nitrogen 23 mg/dL (9-23)
[2024-12-04 04:30] LABS: Carbon Dioxide 32 mmol/L (20-31); Chloride 107 mmol/L (98-107); Glucose 108 mg/dL (74-106); Sodium 146 mmol/L (136-145)
[2024-12-04 08:18] LABS: Base Excess 5.2 mmol/L (-2.0-3.0)
[2024-12-04] MEDS: POLYETHYLENE GLYCOL 17 GM PWDR PO SCH (09:40)
--- NOTE | 2024-12-04 11:23 | DVHPN2 ---
Assessment/Plan Assessment/Plan ICU progress note 64-year-old female with COPD, half pack, psoriasis, hs, asthma admitted to the ICU for acute hypercarbic hypoxic respiratory failure, intubated and placed on mechanical ventilation. Patient also had septic shock. Seen today during rounds, weaning pressors, no BM still, stool disimpaction today. plan for SAT SBT tomorrow Physical exam Intubated, mechanically ventilated PERRLA Mechanical breath sound Regular rate and rhythm Abdomen distended, minimal bowel sound Skin with psoriasis rashes Lower abdomen with open wound with granulomatous base Labs imaging and EKG reviewed Assessment and plan Acute hypoxic hypercarbic respiratory failure Requiring mechanical ventilation Septic shockRequiring pressors Acute on chronic diastolic heart failure COPD group E with exacerbation NICKY likely be [place], resolved Community-acquired pneumonia, Gram-negative versus Gram-positive Skin abscess secondary to HS? Psoriasis Constipation Anxiety Depression Panic attacks Obesity continue with mechanical ventilation maintain spo2 >92 continue with sedation maintain RASS -3 Continue with antibiotic coverage vanc and cefepime stress dose steroid Continue with pressors, maintain map above 65 Surgical consult Wound care Bowel regimen, add miralax senna NG to LIS fluid challange Lines Right IJ TLC Cavazos NG tube Diet tube feeding hold DVT prophylaxis Lovenox GI prophylaxis Protonix Condition critical poor prognosis Full code 46 minutes of critical care time spent Plan discussed with: Patient Date of Service: Dec 04, 2024 Billing Provider: JERRY HANSON MD Common Visit Codes: [id number] CARE 30-74 MIN JERRY HANSON MD Dec 04, 2024 11:23
--- NOTE | 2024-12-04 12:24 | DVH ---
EXAM: XY CHEST PORTABLE HISTORY: respiratory failure COMPARISON: XY CHEST PORTABLE on DOS: 12/03/24, XY CHEST XRAY 1 VIEW on DOS: 12/01/24, XY CHEST PORTABLE on DOS: 12/01/24, XY CHEST PORTABLE on DOS: 12/01/24 TECHNIQUE: Portable AP view of the chest was performed. FINDINGS: Endotracheal tube is re-identified with its tip 4 cm above the kaykay. OG tube and right IJ central line are re-identified. There is diffuse bilateral interstitial prominence. No pneumothorax or consolidative infiltrates. The heart is not enlarged. IMPRESSION: 1. Mechanical ventilation with tubes and lines as above. 2. Diffuse interstitial prominence suggestive of CHF. No new consolidative infiltrates.
--- NOTE | 2024-12-04 20:59 | DVHPN2 ---
Progress Note - Dictate Date Seen: Dec 04, 2024 Has the PT tested + for MRSA If YES, has PT been informed?: No Medical Necessity Reason Pt with a Central, PICC or Fol: Yes The following are medically ne: Central Line, Palacios Catheter Reason for palacios catheter: Strict I&O, Total Immobilization Subjective Patient seen and examined at bedside. Sedated, intubated on mechanical ventilator. Overnight events reviewed. vital signs Vital Sign Date Time Temp Pulse Resp B/P (MAP) Pulse Ox O2 Delivery O2 Flow Rate FiO2 12/04/24 19:56 71 18 134/62 (86) 97 35 12/04/24 18:45 98.4 209.1 12/04/24 18:16 Mechanical Ventilator+ Total Intake and Output 12/03/24 12/03/24 12/04/24 15:00 23:00 07:00 Intake Total 586.271 ml 665.57 ml 609.77 ml Output Total 1300 ml 800 ml Balance 586.271 ml -634.43 ml -190.23 ml medications Current Medications Medications Dose Ordered Sig/Oswaldo Route Start Time Stop Time Status Last Admin Dose Admin Midazolam HCl 50 ml @ 1 mls/hr Q24H IV 12/01/24 13:00 12/04/24 16:54 10 MLS/HR Fentanyl Citrate 250 ml @ 2.5 mls/hr Q24H IV 12/01/24 14:30 12/04/24 19:22 25 MLS/HR Norepinephrine Bitartrate 250 ml @ 3.75 mls/hr Q24H IV 12/01/24 18:15 12/04/24 12:00 3.75 MLS/HR Propofol 100 ml @ 2.73 mls/hr Q24H IV 12/01/24 20:00 12/04/24 11:04 8.19 MLS/HR Vancomycin HCl 0 ml @ 0 mls/hr UD IV 12/01/24 21:15 Enoxaparin Sodium 40 mg DAILY SC 12/02/24 10:00 12/04/24 09:43 40 MG Acetaminophen 650 mg Q6HP PRN PO 12/01/24 22:30 12/01/24 23:34 650 MG Lactulose 30 ml BID PO 12/02/24 10:00 12/04/24 09:40 30 ML Pantoprazole Sodium 40 mg DAILY IV 12/01/24 22:45 12/04/24 09:40 40 MG Hydrocortisone Sodium Succinate 50 mg Q6HR IV 12/02/24 00:00 12/04/24 17:44 50 MG Ipratropium [place] 0.5 mg Q4HWA [facility] 12/03/24 06:00 12/04/24 17:53 0.5 MG Albuterol 2.5 mg Q4HWA NEB 12/03/24 06:00 12/04/24 17:54 2.5 MG Albuterol 2.5 mg Q3HPRN PRN [facility] 12/03/24 01:15 12/03/24 02:53 2.5 MG Polyethylene Glycol 17 gm DAILY PO 12/04/24 10:00 12/04/24 09:40 17 GM Sennosides 17.2 mg HS PO 12/03/24 22:00 12/03/24 22:01 17.2 MG Vancomycin HCl 100 ml @ 100 mls/hr Q18H IV 12/03/24 16:00 12/04/24 09:10 100 MLS/HR Cefepime HCl 50 ml @ 12.5 mls/hr Q8H IV 12/03/24 18:00 12/04/24 17:44 12.5 MLS/HR objective Gen.: Patient lying in bed in medical ICU. Sedated, intubated on mechanical ventilator. Head: Normocephalic, atraumatic. Eyes: PERRLA. Ears: Normal external anatomy. Throat: Endotracheal tube and orogastric tube in place. Neck: Supple, trachea midline. Chest: Transmitted breath sounds bilaterally. Decreased air entry bilaterally. No wheezing. Bibasilar crackles. Cardiovascular: Positive S1, positive S2. Regular rate and rhythm. Abdomen: Positive bowel sounds in all 4 quadrants. Soft, nontender, nondistended. : Palacios in place. Normal external genitalia. Rectal: Deferred. Skin: Warm, dry. Intact. Extremities: 2+ radial pulses bilaterally. No lower extremity edema. Neuro: Sedated. laboratory and microbiology Laboratory Tests 12/04/24 03:28 Test 12/04/24 03:28 Range/Units Serum Glucose 108 H 74-106 mg/dL Assessment/Plan Impression: Acute on chronic hypercarbic respiratory failure On mechanical ventilator Acute exacerbation of COPD Pulmonary edema Obesity Events: Remains on vent support On AC mode; RR 18, VT 400, PEEP 5, FiO2 35% Sedated on Propofol, Versed, Fentanyl Continue bronchodilators. Continue antibiotics. Continue steroids IV fluids CXR reviewed, notable for diffuse interstitial prominence suggestive of CHF. No new consolidative infiltrates. ABG reviewed, compensated. Labs and imaging reviewed. Rest of plan as noted below. Plan: s/p intubation on mechanical ventilator. On AC mode; RR 18, VT 400, PEEP 5, FiO2 35% Titrate FIO2 to keep O2 saturation between 88-94%. Chronic CO2 retainer VAP bundle. Daily ABG and CXR while intubated Sedate for ventilator synchrony Continue bronchodilators. Continue antibiotics. Continue steroids On pressors for hemodynamic support Titrate to keep mean arterial pressure greater than 65 mmHg. Monitor renal function Monitor electrolytes. Supplement as necessary. Monitor ins and outs. Diet and lifestyle modifications for weight reduction Obesity - complicates all care GI prophylaxis. DVT prophylaxis. Prognosis: Poor given patient's multiple co-morbidities. Condition: Critical Rest of plan per hospitalist and other consultants. A total of 35 minutes of critical care time was spent reviewing the patient record, examining the patient, making a diagnostic and therapeutic plan, discussing this plan with the medical personnel, following up on diagnostic studies and following the patient for clinical stability excluding any and all procedures. At least 50% of this time was spent in direct, [id number] contact. Thank you, Dr. Barajas, for allowing me to participate in this patient's care. Further recommendations will depend on the patient's clinical course. Please do not hesitate to contact me if you have any questions or concerns. This medical document was created using an electronic medical record system with [employer] dictation system. Although these documentations are being carefully reviewed, there may still be some phonetic and typographical changes. The errors are purely typographical, due to imperfection on the software program, and do not reflect any compromise in the patient's medical care. Dietary Evaluation Review Recommendations by RD: PPN/TPN Comments: 1) If GI route is preferred, consider Jevity 1.2 @ 45 mL/hr goal rate as tolerated. Flush with 200 mL free H2O Q6. Goal rate will provide 1296 kcals, 60g Pro, and 1672 mL H2O (including flushes) per 24 hrs. Goal rate will provide ~ 100% of daily estimated energy requirements and 82% daily estimated protein requirements. 2) Initiate Kyle @ 1 pk bid 3) If patient remains NPO for more than 7 days, consider TPN to meet at least 75% of estimated needs 4) Advance patient diet when medically feasible to cardiac diet 5) Refer to outpatient RD for weight management 6) F/u with pulmonology and cardiology Expected Outcomes/Goals: 1) patient to receive nutrition within 7 days 2) labs and wound to improve 3) diet to advance 4) f/u in 3 days Plan discussed with: Other (DORY Jacobson) Critical Care Time(min): 35 LOGAN NAVARRO MD Dec 04, 2024 20:59
[2024-12-05] VITALS (103 sets, daily range): BP systolic 99–142; BP diastolic 49–73; PULSE 60–110; RESP 11–27; TEMP 91.2–98.4; O2SAT 92–100
[2024-12-05 03:54] LABS: Basophils # (auto) 0 10 ^3/uL (0-0.2); Eosinophils # (auto) 0 10 ^3/uL (0-0.8); Hematocrit 24.9 % (36.0-46.0); Hemoglobin 7.5 g/dL (12.2-16.2); Mean Corpuscular Volume 86.7 fL (80.0-100.0); Monocytes # (auto) 0.6 10 ^3/uL (0-1.3); Red Blood Cells 2.87 10^6/uL (4.0-5.20)
[2024-12-05 03:57] LABS: Eosinophils % (auto) 0.1 % (0.0-7.0); Lymphocytes # (auto) 0.8 10 ^3/uL (0.4-5.4); Lymphocytes % (auto) 7.4 % (10.0-50.0); Mean Corpuscular Hemoglobin 26.1 pg (28.0-32.0); Mean Corpuscular Hgb Conc. 30.1 g/dL (32.0-36.0); Monocytes % (auto) 5.5 % (0.0-12.0); Neutrophils # (auto) 9.7 10 ^3/uL (1.6-8.6); Platelet Count (auto) 263 10^3/uL (140-450); Red Cell Distribution Width 17.9 % (11.8-14.3); White Blood Cell 11.1 10^3/uL (4.4-10.8)
[2024-12-05 03:59] LABS: Anion Gap 6 (5-15); Carbon Dioxide 31 mmol/L (20-31); Sodium 145 mmol/L (136-145)
[2024-12-05 04:01] LABS: Calcium 9.6 mg/dL (8.7-10.4)
[2024-12-05 04:05] LABS: BUN/Creatinine Ratio 34.8 (10.0-20.0); Chloride 108 mmol/L (98-107); Glucose 110 mg/dL (74-106)
[2024-12-05 04:06] LABS: Blood Urea Nitrogen 32 mg/dL (9-23)
[2024-12-05 04:07] LABS: Phosphorus 4.6 mg/dL (2.4-5.1)
[2024-12-05 04:22] LABS: Magnesium 2.8 mg/dL (1.6-2.6)
--- NOTE | 2024-12-05 04:54 | DVH ---
CHEST RADIOGRAPH Indication: PROTOCOL Technique: Single frontal view of the chest was obtained Comparison: XY CHEST PORTABLE on DOS: 12/04/24 FINDINGS: Lines and Tubes: The endotracheal tube terminates 4.5 cm above the kaykay. Right central venous ramón ter terminates in the right atrium. Lungs: Mild bilateral interstitial prominence. Pleura: No effusion. No pneumothorax. Cardiomediastinal contours: Unremarkable Bones: No acute osseous abnormality. IMPRESSION: 1. Bilateral interstitial prominence similar to prior study.
[2024-12-05 08:06] LABS: Base Excess 3.6 mmol/L (-2.0-3.0)
[2024-12-05 11:09] LABS: Base Excess 3.8 mmol/L (-2.0-3.0)
[2024-12-05 13:28] LABS: Albumin 3.6 g/dL (3.2-4.8); Alkaline Phosphatase 47 U/L (46-116); Total Protein 6.5 g/dL (5.7-8.2)
[2024-12-05 13:36] LABS: Alanine Aminotransferase 49 U/L (7-40); Aspartate Aminotransferase 109 U/L (13-40); Bilirubin, Direct < 0.1 mg/dL (<0.3); Bilirubin, Total < 0.2 mg/dL (0.2-1.0)
[2024-12-05 16:48] LABS: % Iron Saturation 9.2 % (15-50)
--- NOTE | 2024-12-05 17:48 | DVHPN2 ---
Progress Note Date Seen: Dec 05, 2024 Has the PT tested + for MRSA If YES, has PT been informed?: No Medical Necessity Reason Pt with a Central, PICC or Fol: Yes The following are medically ne: Central Line, Palacios Catheter Reason for palacios catheter: Strict I&O, Total Immobilization Objective vital signs Vital Sign Date Time Temp Pulse Resp B/P (MAP) Pulse Ox O2 Delivery O2 Flow Rate FiO2 12/05/24 16:30 18 95 Mechanical Ventilator+ 35 35 12/05/24 16:30 87 12/05/24 15:47 112/55 (74) 12/05/24 14:45 97.9 208.2 Total Intake and Output 12/04/24 12/04/24 12/05/24 15:00 23:00 07:00 Intake Total 661.00 ml 442.74 ml 393.73 ml Output Total 475 ml 450 ml Balance 661.00 ml -32.26 ml -56.27 ml medications Current Medications Medications Dose Ordered Sig/Oswaldo Route Start Time Stop Time Status Last Admin Dose Admin Midazolam HCl 50 ml @ 1 mls/hr Q24H IV 12/01/24 13:00 12/05/24 12:03 2 MLS/HR Fentanyl Citrate 250 ml @ 2.5 mls/hr Q24H IV 12/01/24 14:30 12/05/24 07:54 7.5 MLS/HR Norepinephrine Bitartrate 250 ml @ 3.75 mls/hr Q24H IV 12/01/24 18:15 12/04/24 12:00 3.75 MLS/HR Propofol 100 ml @ 2.73 mls/hr Q24H IV 12/01/24 20:00 12/04/24 11:04 8.19 MLS/HR Vancomycin HCl 0 ml @ 0 mls/hr UD IV 12/01/24 21:15 Acetaminophen 650 mg Q6HP PRN PO 12/01/24 22:30 12/01/24 23:34 650 MG Lactulose 30 ml BID PO 12/02/24 10:00 12/05/24 10:23 30 ML Pantoprazole Sodium 40 mg DAILY IV 12/01/24 22:45 12/05/24 10:15 40 MG Ipratropium [place] 0.5 mg Q4HWA NEB 12/03/24 06:00 12/05/24 13:56 0.5 MG Albuterol 2.5 mg Q4HWA NEB 12/03/24 06:00 12/05/24 13:56 2.5 MG Albuterol 2.5 mg Q3HPRN PRN NEB 12/03/24 01:15 12/03/24 02:53 2.5 MG Polyethylene Glycol 17 gm DAILY PO 12/04/24 10:00 12/05/24 10:23 17 GM Sennosides 17.2 mg HS PO 12/03/24 22:00 12/04/24 21:47 17.2 MG Vancomycin HCl 100 ml @ 100 mls/hr Q18H IV 12/03/24 16:00 12/05/24 03:34 100 MLS/HR Cefepime HCl 50 ml @ 12.5 mls/hr Q8H IV 12/03/24 18:00 12/05/24 10:23 12.5 MLS/HR Dexmedetomidine HCl 400 mcg/ Dextrose 100 ml @ 4.55 mls/hr [id number] IV 12/05/24 13:30 12/05/24 14:44 4.55 MLS/HR Methylprednisolone Sodium Succinate 40 mg BID IV 12/05/24 22:00 Iron Sucrose 110 ml @ 110 mls/hr DAILY@1200 IV 12/06/24 12:00 12/10/24 12:59 laboratory and microbiology Laboratory Tests 12/05/24 03:22 Test 12/05/24 03:22 Range/Units Serum Glucose 110 H 74-106 mg/dL Microbiology Date/Time Source Procedure Growth Status 12/02/24 16:30 Nose MRSA Screen - Final Complete 12/01/24 13:20 Blood Blood Culture - Preliminary NO GROWTH AFTER 72 HOURS OF INCUBATION. Resulted 12/01/24 12:58 Sputum Gram Stain - Final Complete 12/01/24 12:58 Sputum Respiratory Culture - Final Complete Problem List/Assessment/Plan Problem List/Assessment/Plan INTUBATED VSS LOW BACK HIDRADENITIS INFLAMMATION ONGOING DRAINAGE NO MATURE ABSCESS NOTED CONTINUE CLOSE OBSERVATION IV ABX INDICATED Plan discussed with: Other Dietary Evaluation Review Recommendations by RD: PPN/TPN Comments: 1) If GI route is preferred, consider Jevity 1.2 @ 45 mL/hr goal rate as tolerated. Flush with 200 mL free H2O Q6. Goal rate will provide 1296 kcals, 60g Pro, and 1672 mL H2O (including flushes) per 24 hrs. Goal rate will provide ~ 100% of daily estimated energy requirements and 82% daily estimated protein requirements. 2) Initiate Kyle @ 1 pk bid 3) If patient remains NPO for more than 7 days, consider TPN to meet at least 75% of estimated needs 4) Advance patient diet when medically feasible to cardiac diet 5) Refer to outpatient RD for weight management 6) F/u with pulmonology and cardiology Expected Outcomes/Goals: 1) patient to receive nutrition within 7 days 2) labs and wound to improve 3) diet to advance 4) f/u in 3 days JOSEPH GLORIA MD Dec 05, 2024 17:48
--- NOTE | 2024-12-05 18:04 | DVHPNRES ---
Progress Note Date Seen: Dec 05, 2024 Resident Creating Document: ALDAIR VILLEGAS RESIDENT Has the PT tested + for MRSA If YES, has PT been informed?: No Medical Necessity Reason Pt with a Central, PICC or Fol: Yes The following are medically ne: Central Line, Palacios Catheter Reason for palacios catheter: Strict I&O, Total Immobilization Subjective Review of Systems 64-year-old female patient with past medical history of COPD, heart failure, asthma, anxiety, depression, panic attacks, psoriasis , patient was brought to the hospital on December 01 with a chief complaint of shortness of breaths for the past 5 days before admission, she was started on breathing treatments, at the time the glucose levels were noted to be on 190s and patient was lethargic, tachypneic and tachycardic, per family patient had flu symptoms a couple of days prior to admission, ABG at that time showed marked respiratory acidosis with pCO2 on the 170s, in the ER they decided for intubation. Patient met sepsis criteria for which was started antibiotics cefepime and vancomycin and sedatives. Chest x-ray showing bibasilar opacities consistent with pulmonary vascular congestion. Patient noted with an open ulcer to her right abdominal fold with two open ulcer on her medical sacrum (1.5x0.5cm) and left buttock (0.5x0.5cm), Patient was examined by surgical team, who decided to continue IV antibiotics , but no surgical interventions for now. Patient will continue on mechanical ventilation current settings respiratory rate 22, FiO2 35, tidal volume 400 peep 5. White blood cell count improving from 16 to 11. Objective vital signs Vital Sign Date Time Temp Pulse Resp B/P (MAP) Pulse Ox O2 Delivery O2 Flow Rate FiO2 12/05/24 16:30 18 95 Mechanical Ventilator+ 35 35 12/05/24 16:30 87 12/05/24 15:47 112/55 (74) 12/05/24 14:45 97.9 208.2 Total Intake and Output 12/04/24 12/04/24 12/05/24 15:00 23:00 07:00 Intake Total 661.00 ml 442.74 ml 393.73 ml Output Total 475 ml 450 ml Balance 661.00 ml -32.26 ml -56.27 ml medications Current Medications Medications Dose Ordered Sig/Oswaldo Route Start Time Stop Time Status Last Admin Dose Admin Midazolam HCl 50 ml @ 1 mls/hr Q24H IV 12/01/24 13:00 12/05/24 12:03 2 MLS/HR Fentanyl Citrate 250 ml @ 2.5 mls/hr Q24H IV 12/01/24 14:30 12/05/24 07:54 7.5 MLS/HR Norepinephrine Bitartrate 250 ml @ 3.75 mls/hr Q24H IV 12/01/24 18:15 12/04/24 12:00 3.75 MLS/HR Propofol 100 ml @ 2.73 mls/hr Q24H IV 12/01/24 20:00 12/04/24 11:04 8.19 MLS/HR Vancomycin HCl 0 ml @ 0 mls/hr UD IV 12/01/24 21:15 Acetaminophen 650 mg Q6HP PRN PO 12/01/24 22:30 12/01/24 23:34 650 MG Lactulose 30 ml BID PO 12/02/24 10:00 12/05/24 10:23 30 ML Pantoprazole Sodium 40 mg DAILY IV 12/01/24 22:45 12/05/24 10:15 40 MG Ipratropium [place] 0.5 mg Q4HWA NEB 12/03/24 06:00 12/05/24 13:56 0.5 MG Albuterol 2.5 mg Q4HWA NEB 12/03/24 06:00 12/05/24 13:56 2.5 MG Albuterol 2.5 mg Q3HPRN PRN NEB 12/03/24 01:15 12/03/24 02:53 2.5 MG Polyethylene Glycol 17 gm DAILY PO 12/04/24 10:00 12/05/24 10:23 17 GM Sennosides 17.2 mg HS PO 12/03/24 22:00 12/04/24 21:47 17.2 MG Vancomycin HCl 100 ml @ 100 mls/hr Q18H IV 12/03/24 16:00 12/05/24 03:34 100 MLS/HR Cefepime HCl 50 ml @ 12.5 mls/hr Q8H IV 12/03/24 18:00 12/05/24 10:23 12.5 MLS/HR Dexmedetomidine HCl 400 mcg/ Dextrose 100 ml @ 4.55 mls/hr [id number] IV 12/05/24 13:30 12/05/24 14:44 4.55 MLS/HR Methylprednisolone Sodium Succinate 40 mg BID IV 12/05/24 22:00 Iron Sucrose 110 ml @ 110 mls/hr DAILY@1200 IV 12/06/24 12:00 12/10/24 12:59 Examination Examination General Appearance: Sedated under mechanical ventilation Respiratory: Clear to auscultation, Normal air movement Cardiovascular: Regular rate, Normal S1, Normal S2 Abdominal: Hypoactive, distended, no rebound Extremities: No cyanosis, No edema, Normal pulses, No tenderness/swelling Skin: Psoriatic plaques in the lower extremities and feet, purulent fluid draining from the back and lower abdomen. Neuro: Pupils sluggish but reactive, gag reflex present laboratory and microbiology Laboratory Tests 12/05/24 03:22 Test 12/05/24 03:22 Range/Units Serum Glucose 110 H 74-106 mg/dL Microbiology Date/Time Source Procedure Growth Status 12/02/24 16:30 Nose MRSA Screen - Final Complete 12/01/24 13:20 Blood Blood Culture - Preliminary NO GROWTH AFTER 72 HOURS OF INCUBATION. Resulted 12/01/24 12:58 Sputum Gram Stain - Final Complete 12/01/24 12:58 Sputum Respiratory Culture - Final Complete Labs and/or images reviewed: Labs reviewed by me, Image(s) reviewed by me Problem List/Assessment/Plan Problem List/Assessment/Plan Neurology #sedated under mechanical ventilation - head ct negative - sedatives : versed, fentanyl, precedex - CPAP trial for AM Cardiovascular # Septic shock # Possible acute on chronic diastolic heart failure 60% EF # Aortic atherosclerosis # Hypertension # Mild tricuspid regurgitation # Mild aortic root enlargement. # Left atrial enlargement - not on pressors - iv antibiotics, cefepime and vancomycin - wound culture, pending - blood culture, pending Respiratory # Acute hypercapnic respiratory failure likely due to COPD exacerbation due to Gram-positive/Gram-negative bacterial pneumonia # Pulmonary vascular congestion # COPD exacerbation - Lasix 20 mg daily - methylprednisolone 40 mg IV BID - Albuterol neb - Ipratropium neb GI #Acute abdominal distention likely due to constipation -Manual disimpaction -Place Ng tube -Lactulose 30cc BID #Palacios catheter since 12/01 #Uterine fibroids Endocrine #type 1 obesity #metabolic syndrome #Infectious disease # Skin abscess pending wound culture final result Heme/Onc Normocytic normochromic anemia Skin: #Skin psoriasis #skin abscess likely due to Hydradenitis suppurativa Vasquez II/III - wound culture, pending - surgical on board - iv antibiotics GI prophylaxis -IV pantoprazole 40mg daily DVT prophylaxis - SCD Drips: fentanyl Versed Precedex Central line placed on right internal jugular vein on 12/01/24 Palacios catheter since 12/01 case discussed with critical care : time spent not including procedures: 83 minutes full code Plan discussed with: Other My Orders My Orders Orders - ALDAIR VILLEGAS RESIDENT Procedure Category Date Status Time Abg W/ Co-Ox RT 12/05/24 Logged 10:00 Dietary Evaluation Review Recommendations by RD: PPN/TPN Comments: 1) If GI route is preferred, consider Jevity 1.2 @ 45 mL/hr goal rate as tolerated. Flush with 200 mL free H2O Q6. Goal rate will provide 1296 kcals, 60g Pro, and 1672 mL H2O (including flushes) per 24 hrs. Goal rate will provide ~ 100% of daily estimated energy requirements and 82% daily estimated protein requirements. 2) Initiate Kyle @ 1 pk bid 3) If patient remains NPO for more than 7 days, consider TPN to meet at least 75% of estimated needs 4) Advance patient diet when medically feasible to cardiac diet 5) Refer to outpatient RD for weight management 6) F/u with pulmonology and cardiology Expected Outcomes/Goals: 1) patient to receive nutrition within 7 days 2) labs and wound to improve 3) diet to advance 4) f/u in 3 days Date of Service: Dec 05, 2024 Billing Provider: TIMOTEO CAMPOS MD Common Visit Codes: 56904-[id number] CARE 30-74 MIN, [id number]-[id number] CARE-EACH +30MIN ALDAIR VILLEGAS RESIDENT Dec 05, 2024 18:04 TIMOTEO CAMPOS MD Dec 07, 2024 14:28
[2024-12-05] MEDS: FLEET MINERAL OIL ENEMA 133 ML PR ONE (19:57)
[2024-12-05] MEDS: methylPREDNISolone SOD SUCC 40 MG/ML VL IV SCH (21:35)
[2024-12-06] VITALS (107 sets, daily range): BP systolic 105–178; BP diastolic 48–143; PULSE 56–117; RESP 14–29; TEMP 97.6–98.6; O2SAT 87–100
[2024-12-06 03:54] LABS: Basophils # (auto) 0 10 ^3/uL (0-0.2); Eosinophils # (auto) 0 10 ^3/uL (0-0.8); Hematocrit 25.1 % (36.0-46.0); Hemoglobin 7.9 g/dL (12.2-16.2); Lymphocytes # (auto) 0.7 10 ^3/uL (0.4-5.4); Mean Corpuscular Hemoglobin 27.3 pg (28.0-32.0); Mean Corpuscular Hgb Conc. 31.6 g/dL (32.0-36.0); Mean Corpuscular Volume 86.3 fL (80.0-100.0); Monocytes # (auto) 0.4 10 ^3/uL (0-1.3); Monocytes % (auto) 4.7 % (0.0-12.0); Neutrophils % (auto) 87.3 % (37.0-80.0); Platelet Count (auto) 253 10^3/uL (140-450); Red Blood Cells 2.91 10^6/uL (4.0-5.20); Red Cell Distribution Width 17.7 % (11.8-14.3); White Blood Cell 9.1 10^3/uL (4.4-10.8)
[2024-12-06 04:14] LABS: Albumin 3.8 g/dL (3.2-4.8); Alkaline Phosphatase 48 U/L (46-116); Anion Gap 8 (5-15); BUN/Creatinine Ratio 47.9 (10.0-20.0); Calcium 10.3 mg/dL (8.7-10.4); Carbon Dioxide 29 mmol/L (20-31); Potassium 4.1 mmol/L (3.5-5.1); Sodium 145 mmol/L (136-145); Total Protein 6.7 g/dL (5.7-8.2)
[2024-12-06 04:18] LABS: Alanine Aminotransferase 44 U/L (7-40); Aspartate Aminotransferase 70 U/L (13-40); Bilirubin, Total < 0.2 mg/dL (0.2-1.0); Blood Urea Nitrogen 45 mg/dL (9-23); Chloride 108 mmol/L (98-107); Glucose 133 mg/dL (74-106)
--- NOTE | 2024-12-06 04:43 | DVH ---
CHEST RADIOGRAPH Indication: intubated Technique: Single frontal view of the chest was obtained Comparison: XY CHEST PORTABLE on DOS: 12/05/24 FINDINGS: Lines and Tubes: The endotracheal tube terminates 5.8 cm above the kaykay. Right central venous ram[address] ter terminates in the right atrium. Lungs: Hazy bilateral interstitial prominence. Pleura: No effusion. No pneumothorax. Cardiomediastinal contours: Unremarkable Bones: No acute osseous abnormality. IMPRESSION: 1. Interstitial pulmonary edema similar to prior study.
[2024-12-06 06:38] LABS: Base Excess 0.7 mmol/L (-2.0-3.0)
[2024-12-06] MEDS: FUROSEMIDE 20 MG/2 ML VIAL IV SCH (09:18)
[2024-12-06] MEDS: VANCOMYCIN 750MG KIT 100 ML IV SCH (09:19)
[2024-12-06] MEDS: IRON SUCROSE COMPLEX 110 ML IV SCH (11:58)
--- NOTE | 2024-12-06 17:30 | DVHPNRES ---
Progress Note Date Seen: Dec 06, 2024 Resident Creating Document: ALDAIR VILLEGAS RESIDENT Has the PT tested + for MRSA If YES, has PT been informed?: No Medical Necessity Reason Pt with a Central, PICC or Fol: Yes The following are medically ne: Central Line, Palacios Catheter Reason for palacios catheter: Strict I&O, Total Immobilization Subjective Review of Systems 64-year-old female patient with past medical history of COPD, heart failure, asthma, anxiety, depression, panic attacks, psoriasis , patient was brought to the hospital on December 01 with a chief complaint of shortness of breaths for the past 5 days before admission, she was started on breathing treatments, at the time the glucose levels were noted to be on 190s and patient was lethargic, tachypneic and tachycardic, per family patient had flu symptoms a couple of days prior to admission, ABG at that time showed marked respiratory acidosis with pCO2 on the 170s, in the ER they decided for intubation. Patient met sepsis criteria for which was started antibiotics cefepime and vancomycin other than the pressors and sedative drips. Chest x-ray showing bibasilar opacities consistent with pulmonary vascular congestion. Patient noted with an open ulcer to her right abdominal fold with two open ulcer on her medical sacrum (1.5x0.5cm) and left buttock (0.5x0.5cm), Patient is currently on mechanical ventilation with the following settings:respiratory rate 22, FiO2 35, tidal volume 400 peep 5. manual disimpaction was done today in the morning. CPAP trial tomorrow in the morning wound culture positive for Enterococcus Faecium , vanco and cefepime were discontinued, patient was started on linezolid. Lasix 20 meq daily was started. Objective vital signs Vital Sign Date Time Temp Pulse Resp B/P (MAP) Pulse Ox O2 Delivery O2 Flow Rate FiO2 12/06/24 17:00 71 22 147/71 (96) 100 12/06/24 16:02 35 12/06/24 16:01 97.7 97.7 12/06/24 16:00 Mechanical Ventilator+ Total Intake and Output 12/05/24 12/05/24 12/06/24 15:00 23:00 07:00 Intake Total 123.7 ml 335.925 ml 291.000 ml Output Total 650 ml 575 ml Balance 123.7 ml -314.075 ml -284.000 ml medications Current Medications Medications Dose Ordered Sig/Oswaldo Route Start Time Stop Time Status Last Admin Dose Admin Midazolam HCl 50 ml @ 1 mls/hr Q24H IV 12/01/24 13:00 12/06/24 04:54 2 MLS/HR Fentanyl Citrate 250 ml @ 2.5 mls/hr Q24H IV 12/01/24 14:30 12/06/24 15:37 7.5 MLS/HR Norepinephrine Bitartrate 250 ml @ 3.75 mls/hr Q24H IV 12/01/24 18:15 12/04/24 12:00 3.75 MLS/HR Propofol 100 ml @ 2.73 mls/hr Q24H IV 12/01/24 20:00 12/04/24 11:04 8.19 MLS/HR Acetaminophen 650 mg Q6HP PRN PO 12/01/24 22:30 12/01/24 23:34 650 MG Lactulose 30 ml BID PO 12/02/24 10:00 12/06/24 09:18 30 ML Pantoprazole Sodium 40 mg DAILY IV 12/01/24 22:45 12/06/24 09:18 40 MG Ipratropium [place] 0.5 mg Q4HWA NEB 12/03/24 06:00 12/06/24 13:58 0.5 MG Albuterol 2.5 mg Q4HWA NEB 12/03/24 06:00 12/06/24 13:58 2.5 MG Albuterol 2.5 mg Q3HPRN PRN NEB 12/03/24 01:15 12/06/24 01:57 2.5 MG Polyethylene Glycol 17 gm DAILY PO 12/04/24 10:00 12/06/24 09:19 17 GM Sennosides 17.2 mg HS PO 12/03/24 22:00 12/05/24 21:35 17.2 MG Dexmedetomidine HCl 400 mcg/ Dextrose 100 ml @ 4.55 mls/hr [id number] IV 12/05/24 13:30 12/06/24 11:00 13.65 MLS/HR Methylprednisolone Sodium Succinate 40 mg BID IV 12/05/24 22:00 12/06/24 09:18 40 MG Iron Sucrose 110 ml @ 110 mls/hr DAILY@1200 IV 12/06/24 12:00 12/10/24 12:59 12/06/24 11:58 110 MLS/HR Furosemide 20 mg DAILY IV 12/06/24 10:00 12/06/24 09:18 20 MG Linezolid 300 ml @ 150 mls/hr Q12HR IV 12/06/24 22:00 UNV Examination Examination Neurology: Sedated on mechanical ventilation . Respiratory: Rales bilateral no wheezing Cardiovascular: Regular rate, Normal S1, Normal S2 Abdominal: Bowel sounds absent, abdomen very distended, open wound in lower abdomen. Extremities: No cyanosis, No edema, Normal pulses Skin: Lower extremity plaque psoriasis, red patches with silvery scales. laboratory and microbiology Laboratory Tests 12/06/24 03:00 Test 12/06/24 03:00 Range/Units Serum Glucose 133 H 74-106 mg/dL Microbiology Date/Time Source Procedure Growth Status 12/02/24 16:30 Nose MRSA Screen - Final Complete 12/01/24 13:20 Blood Blood Culture - Final NO GROWTH AFTER 5 DAYS OF INCUBATION. Complete 12/01/24 12:58 Sputum Gram Stain - Final Complete 12/01/24 12:58 Sputum Respiratory Culture - Final Complete Labs and/or images reviewed: Labs reviewed by me, Image(s) reviewed by me Problem List/Assessment/Plan Problem List/Assessment/Plan Neurology #sedated under mechanical ventilation - head ct negative - sedatives : versed, fentanyl, precedex - CPAP trial for AM Cardiovascular # Septic shock # Possible acute on chronic diastolic heart failure 60% EF # Aortic atherosclerosis # Hypertension # Mild tricuspid regurgitation # Mild aortic root enlargement. # Left atrial enlargement - not on pressors -Lasix 20 mEq daily IV Respiratory # Acute hypercapnic respiratory failure likely due to COPD exacerbation due to Gram-positive/Gram-negative bacterial pneumonia # Pulmonary vascular congestion # COPD exacerbation - On mechanical ventilation - Lasix 20 mg daily - methylprednisolone 40 mg IV BID - Albuterol neb - Ipratropium neb GI #Acute abdominal distention likely due to constipation -Manual disimpaction -Place Ng tube -Lactulose 30cc BID #Palacios catheter since 12/01 #Uterine fibroids Endocrine #type 1 obesity #metabolic syndrome #Infectious disease # Skin abscess positive for E.Faecium -Linezolid 600 mg Q12 Heme/Onc Normocytic normochromic anemia Skin: #Skin psoriasis #skin abscess likely due to Hydradenitis suppurativa Vasquez II/III - wound culture, pending - surgical on board - iv antibiotics GI prophylaxis -IV pantoprazole 40mg daily DVT prophylaxis - SCD Drips: fentanyl Versed Precedex lines Central line placed on right internal jugular vein on 12/01/24 Palacios catheter since 12/01 Periphereal line 12/01 case discussed with critical care : time spent not including procedures: 63 minutes full code Plan discussed with: Other My Orders My Orders Orders - ALDAIR VILLEGAS Procedure Category Date Status Time Chest Portable XY 12/06/24 Resulted 04:00 Abg W/ Co-Ox RT 12/06/24 Logged 04:00 Furosemide Injection PHA 12/06/24 In Process (Lasix Injection) 10:00 Linezolid 600mg/300ml PHA 12/06/24 Logged (Zyvox) 22:00 Precautions: Contact PIERO 12/06/24 In Process 17:07 Dietary Evaluation Review Recommendations by RD: PPN/TPN Comments: 1) If GI route is preferred, consider Jevity 1.2 @ 45 mL/hr goal rate as tolerated. Flush with 200 mL free H2O Q6. Goal rate will provide 1296 kcals, 60g Pro, and 1672 mL H2O (including flushes) per 24 hrs. Goal rate will provide ~ 100% of daily estimated energy requirements and 82% daily estimated protein requirements. 2) Initiate Kyle @ 1 pk bid 3) If patient remains NPO for more than 7 days, consider TPN to meet at least 75% of estimated needs 4) Advance patient diet when medically feasible to cardiac diet 5) Refer to outpatient RD for weight management 6) F/u with pulmonology and cardiology Expected Outcomes/Goals: 1) patient to receive nutrition within 7 days 2) labs and wound to improve 3) diet to advance 4) f/u in 3 days Date of Service: Dec 06, 2024 Billing Provider: TIMOTEO CAMPOS MD Common Visit Codes: [id number] CARE 30-74 MIN ALDAIR VILLEGAS RESIDENT Dec 06, 2024 17:30 TIMOTEO CAMPOS MD Dec 07, 2024 14:30
[2024-12-06] MEDS: hydrALAZINE HCL 20 MG/ML VL IV PRN (22:02)
[2024-12-06] MEDS: LINEZOLID 600MG/300ML 300 ML IV SCH (22:02)
[2024-12-07] VITALS (98 sets, daily range): BP systolic 96–176; BP diastolic 45–84; PULSE 69–146; RESP 11–32; TEMP 97.8–99; O2SAT 88–100
[2024-12-07 03:56] LABS: Basophils # (auto) 0 10 ^3/uL (0-0.2); Eosinophils # (auto) 0 10 ^3/uL (0-0.8); White Blood Cell 13.4 10^3/uL (4.4-10.8)
[2024-12-07 03:59] LABS: Basophils % (auto) 0.1 % (0.0-2.0); Hematocrit 25.3 % (36.0-46.0); Hemoglobin 8.2 g/dL (12.2-16.2); Lymphocytes # (auto) 0.6 10 ^3/uL (0.4-5.4); Lymphocytes % (auto) 4.5 % (10.0-50.0); Mean Corpuscular Hemoglobin 27.8 pg (28.0-32.0); Mean Corpuscular Hgb Conc. 32.6 g/dL (32.0-36.0); Mean Corpuscular Volume 85.5 fL (80.0-100.0); Monocytes # (auto) 0.6 10 ^3/uL (0-1.3); Monocytes % (auto) 4.7 % (0.0-12.0); Neutrophils # (auto) 12.2 10 ^3/uL (1.6-8.6); Neutrophils % (auto) 90.7 % (37.0-80.0); Nucleated Red Blood Cells % 0.4 %; Platelet Count (auto) 249 10^3/uL (140-450); Red Blood Cells 2.96 10^6/uL (4.0-5.20); Red Cell Distribution Width 17.5 % (11.8-14.3)
[2024-12-07 04:04] LABS: Alanine Aminotransferase 40 U/L (7-40); Albumin 3.8 g/dL (3.2-4.8); Anion Gap 6 (5-15); BUN/Creatinine Ratio 53.3 (10.0-20.0); Calcium 10.3 mg/dL (8.7-10.4); Carbon Dioxide 31 mmol/L (20-31); Potassium 3.7 mmol/L (3.5-5.1); Total Protein 6.8 g/dL (5.7-8.2)
[2024-12-07 04:12] LABS: Alkaline Phosphatase 46 U/L (46-116); Aspartate Aminotransferase 43 U/L (13-40); Bilirubin, Total 0.2 mg/dL (0.2-1.0); Blood Urea Nitrogen 48 mg/dL (9-23); Chloride 108 mmol/L (98-107); Glucose 124 mg/dL (74-106); Sodium 145 mmol/L (136-145)
--- NOTE | 2024-12-07 05:25 | DVH ---
CHEST RADIOGRAPH Indication: intubated Technique: Single frontal view of the chest was obtained Comparison: XY CHEST PORTABLE on DOS: 12/06/24 FINDINGS: Lines and Tubes: The endotracheal tube terminates 5.0 cm above the kaykay. Right central venous cath eter terminates in the right atrium. The enteric tube courses below the left hemidiaphragm and the t ip extends outside the field of view. Lungs: Bilateral interstitial prominence. Pleura: No effusion. No pneumothorax. Cardiomediastinal contours: Unremarkable Bones: No acute osseous abnormality. IMPRESSION: 1. Pulmonary vascular congestion similar to prior study.
[2024-12-07] MEDS: BUDESONIDE (INHALATION) 0.5 MG/2 ML NEB NEB SCH (05:48)
[2024-12-07 07:54] LABS: Base Excess 4.5 mmol/L (-2.0-3.0)
[2024-12-07] MEDS: ONDANSETRON HCL 4 MG/2 ML VIAL ONE (11:34)
[2024-12-07] MEDS: ONDANSETRON HCL 4 MG/2 ML VIAL IV PRN (11:35)
[2024-12-07 11:40] LABS: Base Excess 1.6 mmol/L (-2.0-3.0)
--- NOTE | 2024-12-07 14:10 | DVH ---
EXAM: XY CHEST PORTABLE Indication: pna Technique: Single frontal view of the chest was obtained Comparison: XY CHEST PORTABLE on DOS: 12/07/24, XY CHEST PORTABLE on DOS: 12/06/24, XY CHEST PORTABLE on DOS: 12/05/24, XY CHEST PORTABLE on DOS: 12/04/24, XY CHEST PORTABLE on DOS: 12/03/24 FINDINGS: Lines and Tubes: Endotracheal tube projects 4.9 cm above the kaykay. Right internal jugular central v enous catheter tip projects over the cavoatrial junction. Lungs: Diffuse interstitial opacities. Pleura: No effusion. No pneumothorax. Cardiomediastinal contours: Unremarkable Bones: No acute osseous abnormality. IMPRESSION: Pulmonary vascular congestion.
[2024-12-07] MEDS: POTASSIUM CHL 20MEQ/100ML 100 ML IV ONE (15:47)
[2024-12-07] MEDS: FUROSEMIDE 20 MG/2 ML VIAL IV SCH (17:27)
--- NOTE | 2024-12-07 17:50 | DVHPNRES ---
Progress Note Date Seen: Dec 07, 2024 Resident Creating Document: ALDAIR VILLEGAS RESIDENT Has the PT tested + for MRSA If YES, has PT been informed?: No Medical Necessity Reason Pt with a Central, PICC or Fol: Yes The following are medically ne: Central Line, Palacios Catheter Reason for palacios catheter: Strict I&O, Total Immobilization Subjective Review of Systems 64-year-old female patient with past medical history of COPD, heart failure, asthma, anxiety, depression, panic attacks, psoriasis , patient was brought to the hospital on December 01 with a chief complaint of shortness of breaths for the past 5 days before admission, she was started on breathing treatments, at the time the glucose levels were noted to be on 190s and patient was lethargic, tachypneic and tachycardic, per family patient had flu symptoms a couple of days prior to admission, ABG at that time showed marked respiratory acidosis with pCO2 on the 170s, in the ER they decided for intubation. Patient noted with an open ulcer to her right abdominal fold with two open ulcer on her medical sacrum (1.5x0.5cm) and left buttock (0.5x0.5cm), Patient still on mechanical ventilation and sedation ( fentanyl and versed ) Patient failed the CPAP trial wound culture positive for Enterococcus Faecium , patient on IV antibiotics( cefepime and linezolid) Lasix 20 meq daily was started. Methylprednisolone 40 mgIV Q8H Objective vital signs Vital Sign Date Time Temp Pulse Resp B/P (MAP) Pulse Ox O2 Delivery O2 Flow Rate FiO2 12/07/24 17:30 83 22 126/60 (82) 94 12/07/24 16:00 Mechanical Ventilator+ 35 35 12/07/24 15:45 98.7 98.7 Total Intake and Output 12/06/24 12/06/24 12/07/24 15:00 23:00 07:00 Intake Total 438.05 ml 412.715 ml 625.895 ml Output Total 1400 ml 1025 ml Balance 438.05 ml -987.285 ml -399.105 ml medications Current Medications Medications Dose Ordered Sig/Oswaldo Route Start Time Stop Time Status Last Admin Dose Admin Midazolam HCl 50 ml @ 1 mls/hr Q24H IV 12/01/24 13:00 12/07/24 11:35 1 MLS/HR Fentanyl Citrate 250 ml @ 2.5 mls/hr Q24H IV 12/01/24 14:30 12/07/24 03:08 25 MLS/HR Norepinephrine Bitartrate 250 ml @ 3.75 mls/hr Q24H IV 12/01/24 18:15 12/04/24 12:00 3.75 MLS/HR Propofol 100 ml @ 2.73 mls/hr Q24H IV 12/01/24 20:00 12/07/24 17:24 19.11 MLS/HR Acetaminophen 650 mg Q6HP PRN PO 12/01/24 22:30 12/01/24 23:34 650 MG Lactulose 30 ml BID PO 12/02/24 10:00 12/07/24 09:20 30 ML Pantoprazole Sodium 40 mg DAILY IV 12/01/24 22:45 12/07/24 09:20 40 MG Ipratropium [place] 0.5 mg Q4HWA NEB 12/03/24 06:00 12/07/24 14:09 0.5 MG Albuterol 2.5 mg Q4HWA NEB 12/03/24 06:00 12/07/24 14:09 2.5 MG Albuterol 2.5 mg Q3HPRN PRN NEB 12/03/24 01:15 12/06/24 01:57 2.5 MG Polyethylene Glycol 17 gm DAILY PO 12/04/24 10:00 12/07/24 09:20 17 GM Sennosides 17.2 mg HS PO 12/03/24 22:00 12/06/24 22:02 17.2 MG Dexmedetomidine HCl 400 mcg/ Dextrose 100 ml @ 4.55 mls/hr [id number] IV 12/05/24 13:30 12/07/24 07:38 4.55 MLS/HR Iron Sucrose 110 ml @ 110 mls/hr DAILY@1200 IV 12/06/24 12:00 12/10/24 12:59 12/07/24 12:24 110 MLS/HR Linezolid 300 ml @ 150 mls/hr Q12HR IV 12/06/24 22:00 12/07/24 09:21 150 MLS/HR Hydralazine HCl 10 mg Q6HP PRN IV 12/06/24 20:30 12/06/24 22:02 10 MG Budesonide 0.5 mg BID NEB 12/07/24 10:00 12/07/24 05:48 0.5 MG Ondansetron HCl 4 mg Q6HPRN PRN IV 12/07/24 11:45 12/07/24 11:35 4 MG Enteral Nutritional Formula 1,000 ml 35ML/HR GT 12/07/24 14:00 Methylprednisolone Sodium Succinate 40 mg Q8HR IV 12/07/24 22:00 Cefepime HCl 50 ml @ 12.5 mls/hr Q8HR IV 12/07/24 22:00 UNV Furosemide 20 mg DAILY IV 12/07/24 16:30 12/07/24 17:27 20 MG Examination Neurology: Sedated on mechanical ventilation . Respiratory: wheezings present bilaterally Cardiovascular: Regular rate, Normal S1, Normal S2 Abdominal: Bowel sounds absent, abdomen very distended, open wound in lower abdomen. Extremities: No cyanosis, No edema, Normal pulses Skin: Lower extremity plaque psoriasis, red patches with silvery scales.open wound in and sacrum and left buttock. laboratory and microbiology Laboratory Tests 12/07/24 03:05 Test 12/07/24 03:05 Range/Units Serum Glucose 124 H 74-106 mg/dL Microbiology Date/Time Source Procedure Growth Status 12/02/24 16:30 Nose MRSA Screen - Final Complete 12/01/24 13:20 Blood Blood Culture - Final NO GROWTH AFTER 5 DAYS OF INCUBATION. Complete 12/01/24 12:58 Sputum Gram Stain - Final Complete 12/01/24 12:58 Sputum Respiratory Culture - Final Complete Problem List/Assessment/Plan Problem List/Assessment/Plan Neurology #sedated under mechanical ventilation - head ct negative - sedatives : versed, fentanyl - CPAP trial for AM Cardiovascular # Septic shock # Possible acute on chronic diastolic heart failure 60% EF # Aortic atherosclerosis # Hypertension # Mild tricuspid regurgitation # Mild aortic root enlargement. # Left atrial enlargement - not on pressors - Lasix 20 mEq daily IV Respiratory # Acute hypercapnic respiratory failure likely due to COPD exacerbation due to Gram-positive/Gram-negative bacterial pneumonia # Pulmonary vascular congestion # COPD exacerbation # Respiratory acidosis - On mechanical ventilation - Lasix 20 mg daily - Methylprednisolone 40 mg IV TID - Albuterol neb - Ipratropium neb GI #Acute abdominal distention likely due to constipation -Manual disimpaction -Place Ng tube -Lactulose 30cc BID /renal #hypokalemia #Dehydration # high BUN/Cr ratio - potassium replaced #Palacios catheter since 12/01 #Uterine fibroids Endocrine #type 1 obesity #metabolic syndrome #Infectious disease # Septic shock likely due to Gram-positive/Gram-negative bacterial pneumonia # Skin abscess positive for E.Faecium - Linezolid 600 mg Q12 - Cefepime Q8h Heme/Onc Normocytic normochromic anemia Skin: #Skin psoriasis #skin abscess likely due to Hydradenitis suppurativa Vasquez II/III - wound culture positive for E.Faecium - iv antibiotics (linezolid and cefepime) - wound care - surgery on board GI prophylaxis -IV pantoprazole 40mg daily DVT prophylaxis - SCD Drips: fentanyl Versed lines Central line placed on right internal jugular vein on 12/01/24 Palacios catheter since 12/01 Periphereal line 12/01 case discussed with critical care : time spent not including procedures and including cpap trial: 82 minutes full code Plan discussed with: Son, Other (caregiver) My Orders My Orders Orders - ALDAIR VILLEGAS RESIDENT Procedure Category Date Status Time Chest Portable XY 12/07/24 Resulted 04:00 Abg W/ Co-Ox RT 12/07/24 Logged 04:00 Hydralazine Injection PHA 12/06/24 In Process (Apresoline Inject 20:30 Chest Portable XY 12/07/24 Resulted 13:22 Nutritional PHA 12/07/24 In Process Supplements (Jevity 14:00 Cefepime 2gm/50ml Ns PHA 12/07/24 Logged (Maxipime 2gm/50ml) 22:00 Furosemide Injection PHA 12/07/24 In Process (Lasix Injection) 16:30 Chest Portable XY 12/08/24 Logged 04:00 Abg W/ Co-Ox RT 12/08/24 Logged 04:00 Comprehensive LAB 12/08/24 Verified Metabolic Panel 04:00 Complete Blood Count LAB 12/08/24 Verified 04:00 Dietary Evaluation Review Recommendations by RD: PPN/TPN Comments: 1) If GI route is preferred, consider Jevity 1.2 @ 45 mL/hr goal rate as tolerated. Flush with 200 mL free H2O Q6. Goal rate will provide 1296 kcals, 60g Pro, and 1672 mL H2O (including flushes) per 24 hrs. Goal rate will provide ~ 100% of daily estimated energy requirements and 82% daily estimated protein requirements. 2) Initiate Kyle @ 1 pk bid 3) If patient remains NPO for more than 7 days, consider TPN to meet at least 75% of estimated needs 4) Advance patient diet when medically feasible to cardiac diet 5) Refer to outpatient RD for weight management 6) F/u with pulmonology and cardiology Expected Outcomes/Goals: 1) patient to receive nutrition within 7 days 2) labs and wound to improve 3) diet to advance 4) f/u in 3 days Date of Service: Dec 07, 2024 Billing Provider: TIMOTEO CAMPOS MD Common Visit Codes: [id number] CARE 30-74 MIN, [id number] CARE-EACH +30MIN ALDAIR VILLEGAS RESIDENT Dec 07, 2024 17:50 TIMOTEO CAMPOS MD Dec 08, 2024 10:53
[2024-12-07] MEDS ORDERED: FUROSEMIDE 20 MG/2 ML VIAL IV SCH (18:00)
[2024-12-07] MEDS: Jevity 1.2 Cal/Fiber 1 Liter GT SCH (20:05)
[2024-12-07] MEDS: CEFEPIME 2GM/50ML NS 50 ML IV SCH (21:41)
[2024-12-07] MEDS: methylPREDNISolone SOD SUCC 40 MG/ML VL IV SCH (21:41)
[2024-12-08] VITALS (87 sets, daily range): BP systolic 91–128; BP diastolic 31–83; PULSE 59–103; RESP 16–29; TEMP 97.3–98.8; O2SAT 92–100
[2024-12-08 04:21] LABS: Basophils # (auto) 0 10 ^3/uL (0-0.2); Basophils % (auto) 0.3 % (0.0-2.0); Eosinophils # (auto) 0.1 10 ^3/uL (0-0.8); Hemoglobin 7.6 g/dL (12.2-16.2); Mean Corpuscular Hemoglobin 26.7 pg (28.0-32.0); Mean Corpuscular Hgb Conc. 31.1 g/dL (32.0-36.0); Monocytes # (auto) 0.6 10 ^3/uL (0-1.3)
[2024-12-08 04:25] LABS: Hematocrit 24.4 % (36.0-46.0); Lymphocytes # (auto) 0.6 10 ^3/uL (0.4-5.4); Lymphocytes % (auto) 4.9 % (10.0-50.0); Monocytes % (auto) 4.9 % (0.0-12.0); Neutrophils # (auto) 10.3 10 ^3/uL (1.6-8.6); Neutrophils % (auto) 88.9 % (37.0-80.0); Nucleated Red Blood Cells % 0.4 %; Platelet Count (auto) 265 10^3/uL (140-450); Red Blood Cells 2.84 10^6/uL (4.0-5.20); Red Cell Distribution Width 17.7 % (11.8-14.3); White Blood Cell 11.6 10^3/uL (4.4-10.8)
[2024-12-08 04:33] LABS: Alanine Aminotransferase 37 U/L (7-40); Albumin 3.6 g/dL (3.2-4.8); Anion Gap 7 (5-15); Aspartate Aminotransferase 37 U/L (13-40); BUN/Creatinine Ratio 42.6 (10.0-20.0); Potassium 3.6 mmol/L (3.5-5.1); Total Protein 6.4 g/dL (5.7-8.2)
[2024-12-08 04:36] LABS: Alkaline Phosphatase 44 U/L (46-116); Bilirubin, Total 0.2 mg/dL (0.2-1.0); Blood Urea Nitrogen 40 mg/dL (9-23); Calcium 10.5 mg/dL (8.7-10.4); Carbon Dioxide 31 mmol/L (20-31); Chloride 107 mmol/L (98-107); Glucose 118 mg/dL (74-106); Sodium 145 mmol/L (136-145)
--- NOTE | 2024-12-08 05:28 | DVH ---
EXAM: XR Chest, 1 View CLINICAL INDICATION: intubated TECHNIQUE: Frontal view of the chest. COMPARISON: XY CHEST PORTABLE on DOS: 12/07/24, XY CHEST PORTABLE on DOS: 12/07/24, XY CHEST PORTABLE o n DOS: 12/06/24, XY CHEST PORTABLE on DOS: 12/05/24, XY CHEST PORTABLE on DOS: 12/04/24 FINDINGS: LUNGS AND PLEURAL SPACES: Bibasilar atelectasis or pneumonia. No pneumothorax. HEART: Unremarkable. No cardiomegaly. MEDIASTINUM: Unremarkable. Normal mediastinal contour. BONES/JOINTS: Unremarkable. No acute fracture. TUBES, LINES AND DEVICES: The endotracheal tube (ETT) is in satisfactory position. Right internal jugular central venous catheter tip in the superior vena cava. OTHER FINDINGS: . IMPRESSION: Bibasilar atelectasis or pneumonia.
[2024-12-08 07:29] LABS: Base Excess 3.9 mmol/L (-2.0-3.0)
[2024-12-08 14:08] LABS: INR 1.03 (0.9-1.15); Prothrombin Time 10.9 sec (9.3-11.8)
[2024-12-08] MEDS: LIDOCAINE 1% (LOCAL ANESTH.) PF 5ml SDV ID ONE (16:30)
--- NOTE | 2024-12-08 17:55 | DVHPNRES ---
Progress Note Date Seen: Dec 08, 2024 Resident Creating Document: ALDAIR VILLEGAS RESIDENT Has the PT tested + for MRSA If YES, has PT been informed?: No Medical Necessity Reason Pt with a Central, PICC or Fol: Yes The following are medically ne: PICC Line, Palacios Catheter Reason for palacios catheter: Strict I&O, Total Immobilization Subjective Review of Systems 64-year-old female patient with past medical history of COPD, heart failure, asthma, anxiety, depression, panic attacks, psoriasis , patient was brought to the hospital on December 01 with a chief complaint of shortness of breaths for the past 5 days before admission, she was started on breathing treatments, at the time the glucose levels were noted to be on 190s and patient was lethargic, tachypneic and tachycardic, per family patient had flu symptoms a couple of days prior to admission, ABG at that time showed marked respiratory acidosis with pCO2 on the 170s, in the ER they decided for intubation. Patient noted with an open ulcer to her right abdominal fold with two open ulcer on her medical sacrum (1.5x0.5cm) and left buttock (0.5x0.5cm), Patient still on mechanical ventilation and sedation ( fentanyl and versed ) wound culture positive for Enterococcus Faecium , patient on IV antibiotics( cefepime and linezolid) TLC was discontinued, PICC line was placed today, patient hemodynamically stable and wbc improving. CXR, still showing moderate pleural effusion currently on diuretics, negative balance -908 until this morning. CPAP trial for am. She passed large bowel movement this morning. Objective vital signs Vital Sign Date Time Temp Pulse Resp B/P (MAP) Pulse Ox O2 Delivery O2 Flow Rate FiO2 12/08/24 17:36 120/38 12/08/24 15:33 69 22 98 35 12/08/24 10:00 Mechanical Ventilator+ 12/08/24 08:00 98.8 98.8 Total Intake and Output 12/07/24 12/07/24 12/08/24 15:00 23:00 07:00 Intake Total 627.545 ml 732.655 ml 681.88 ml Output Total 1650 ml 1300 ml Balance 627.545 ml -917.345 ml -618.12 ml medications Current Medications Medications Dose Ordered Sig/Oswaldo Route Start Time Stop Time Status Last Admin Dose Admin Midazolam HCl 50 ml @ 1 mls/hr Q24H IV 12/01/24 13:00 12/08/24 17:36 5 MLS/HR Fentanyl Citrate 250 ml @ 2.5 mls/hr Q24H IV 12/01/24 14:30 12/08/24 13:57 15 MLS/HR Norepinephrine Bitartrate 250 ml @ 3.75 mls/hr Q24H IV 12/01/24 18:15 12/04/24 12:00 3.75 MLS/HR Propofol 100 ml @ 2.73 mls/hr Q24H IV 12/01/24 20:00 12/08/24 17:33 24.57 MLS/HR Acetaminophen 650 mg Q6HP PRN PO 12/01/24 22:30 12/01/24 23:34 650 MG Lactulose 30 ml BID PO 12/02/24 10:00 12/07/24 21:41 30 ML Pantoprazole Sodium 40 mg DAILY IV 12/01/24 22:45 12/08/24 10:48 40 MG Ipratropium Rod[place] 0.5 mg Q4HWA NEB 12/03/24 06:00 12/08/24 17:43 0.5 MG Albuterol 2.5 mg Q4HWA NEB 12/03/24 06:00 12/08/24 17:44 2.5 MG Albuterol 2.5 mg Q3HPRN PRN NEB 12/03/24 01:15 12/06/24 01:57 2.5 MG Polyethylene Glycol 17 gm DAILY PO 12/04/24 10:00 12/07/24 09:20 17 GM Sennosides 17.2 mg HS PO 12/03/24 22:00 12/07/24 21:41 17.2 MG Dexmedetomidine HCl 400 mcg/ Dextrose 100 ml @ 4.55 mls/hr [id number] IV 12/05/24 13:30 12/07/24 07:38 4.55 MLS/HR Iron Sucrose 110 ml @ 110 mls/hr DAILY@1200 IV 12/06/24 12:00 12/10/24 12:59 12/08/24 13:56 110 MLS/HR Linezolid 300 ml @ 150 mls/hr Q12HR IV 12/06/24 22:00 12/08/24 10:49 150 MLS/HR Hydralazine HCl 10 mg Q6HP PRN IV 12/06/24 20:30 12/06/24 22:02 10 MG Budesonide 0.5 mg BID NEB 12/07/24 10:00 12/08/24 06:43 0.5 MG Ondansetron HCl 4 mg Q6HPRN PRN IV 12/07/24 11:45 12/07/24 11:35 4 MG Enteral Nutritional Formula 1,000 ml 35ML/HR GT 12/07/24 14:00 12/07/24 20:05 1,000 ML Methylprednisolone Sodium Succinate 40 mg Q8HR IV 12/07/24 22:00 12/08/24 14:58 40 MG Cefepime HCl 50 ml @ 12.5 mls/hr Q8HR IV 12/07/24 22:00 12/08/24 15:00 12.5 MLS/HR Furosemide 20 mg DAILY IV 12/07/24 16:30 12/08/24 10:49 20 MG Sodium Chloride 10 ml QSHIFT@10,22 IV 12/08/24 22:00 Examination Neurology: Sedated on mechanical ventilation . Respiratory: wheezings present bilaterally Cardiovascular: Regular rate, Normal S1, Normal S2 Abdominal: Bowel sounds absent, abdomen very distended, open wound in lower abdomen. Extremities: No cyanosis, No edema, Normal pulses Skin: Lower extremity plaque psoriasis, red patches with silvery scales.open wound in and sacrum and left buttock. laboratory and microbiology Laboratory Tests 12/08/24 03:14 Test 12/08/24 03:14 Range/Units Serum Glucose 118 H 74-106 mg/dL Microbiology Date/Time Source Procedure Growth Status 12/02/24 16:30 Nose MRSA Screen - Final Complete 12/01/24 13:20 Blood Blood Culture - Final NO GROWTH AFTER 5 DAYS OF INCUBATION. Complete 12/01/24 12:58 Sputum Gram Stain - Final Complete 12/01/24 12:58 Sputum Respiratory Culture - Final Complete Problem List/Assessment/Plan Problem List/Assessment/Plan Neurology #sedated under mechanical ventilation - head ct negative - sedatives : versed, fentanyl - CPAP trial for AM Cardiovascular # Septic shock # Possible acute on chronic diastolic heart failure 60% EF # Aortic atherosclerosis # Hypertension # Mild tricuspid regurgitation # Mild aortic root enlargement. # Left atrial enlargement - not on pressors - Lasix 20 mEq daily IV Respiratory # Acute hypercapnic respiratory failure likely due to COPD exacerbation due to Gram-positive/Gram-negative bacterial pneumonia # Pulmonary vascular congestion # COPD exacerbation # Respiratory acidosis,resolved - On mechanical ventilation - Lasix 20 mg daily - Methylprednisolone 40 mg IV TID - Albuterol neb - Ipratropium neb GI #Acute abdominal distention likely due to constipation -Manual disimpaction -Place Ng tube -Lactulose 30cc BID /renal #hypokalemia #Dehydration # high BUN/Cr ratio #Palacios catheter since 12/01 #Uterine fibroids - potassium replaced Endocrine #type 1 obesity #metabolic syndrome #Infectious disease # Septic shock likely due to Gram-positive/Gram-negative bacterial pneumonia # Skin abscess positive for E.Faecium - Linezolid 600 mg Q12 - Cefepime Q8h Heme/Onc Normocytic normochromic anemia Skin: #Skin psoriasis #skin abscess likely due to Hydradenitis suppurativa Vasquez II/III - wound culture positive for E.Faecium - iv antibiotics (linezolid and cefepime) - wound care - surgery on board GI prophylaxis -IV pantoprazole 40mg daily DVT prophylaxis - SCD Drips: fentanyl Versed lines Central line placed on right internal jugular vein on 12/01/24 dc on 12/08/24 PICC line on 12/08/24 Palacios catheter since 12/01 Periphereal line 12/01 case discussed with critical care : time spent not including procedures: 62 minutes full code Plan discussed with: Other (caregiver) My Orders My Orders Orders - ALDAIR VILLEGAS RESIDENT Procedure Category Date Status Time Obtain Mr From Other ORDERS 12/08/24 Transmitted Facility 10:14 Dietary Evaluation Review Recommendations by RD: PPN/TPN Comments: 1) If GI route is preferred, consider Jevity 1.2 @ 45 mL/hr goal rate as tolerated. Flush with 200 mL free H2O Q6. Goal rate will provide 1296 kcals, 60g Pro, and 1672 mL H2O (including flushes) per 24 hrs. Goal rate will provide ~ 100% of daily estimated energy requirements and 82% daily estimated protein requirements. 2) Initiate Kyle @ 1 pk bid 3) If patient remains NPO for more than 7 days, consider TPN to meet at least 75% of estimated needs 4) Advance patient diet when medically feasible to cardiac diet 5) Refer to outpatient RD for weight management 6) F/u with pulmonology and cardiology Expected Outcomes/Goals: 1) patient to receive nutrition within 7 days 2) labs and wound to improve 3) diet to advance 4) f/u in 3 days Date of Service: Dec 08, 2024 Billing Provider: TIMOTEO CAMPOS MD Common Visit Codes: 12153-[id number] CARE 30-74 MIN ALDAIR VILLEGAS RESIDENT Dec 08, 2024 17:55 TIMOTEO CAMPOS MD Dec 10, 2024 19:35
[2024-12-08] MEDS: SODIUM CHLOR 0.9% PF (SALINE LOCK) 10ML VIAL/SYR IV SCH (21:51)
[2024-12-09] VITALS (83 sets, daily range): BP systolic 93–169; BP diastolic 36–85; PULSE 63–136; RESP 15–33; TEMP 97.4–99.2; O2SAT 94–100
[2024-12-09 04:12] LABS: Basophils # (auto) 0 10 ^3/uL (0-0.2); Basophils % (auto) 0.1 % (0.0-2.0); Eosinophils # (auto) 0 10 ^3/uL (0-0.8); Lymphocytes # (auto) 0.6 10 ^3/uL (0.4-5.4); Mean Corpuscular Hemoglobin 26.4 pg (28.0-32.0); Monocytes # (auto) 0.6 10 ^3/uL (0-1.3); Monocytes % (auto) 5.8 % (0.0-12.0); Nucleated Red Blood Cells % 0.3 %; White Blood Cell 11.1 10^3/uL (4.4-10.8)
[2024-12-09 04:14] LABS: Hematocrit 26.8 % (36.0-46.0); Hemoglobin 8.2 g/dL (12.2-16.2); Lymphocytes % (auto) 5.3 % (10.0-50.0); Mean Corpuscular Hgb Conc. 30.6 g/dL (32.0-36.0); Mean Corpuscular Volume 86.1 fL (80.0-100.0); Neutrophils # (auto) 9.8 10 ^3/uL (1.6-8.6); Neutrophils % (auto) 88.8 % (37.0-80.0); Platelet Count (auto) 258 10^3/uL (140-450); Red Blood Cells 3.11 10^6/uL (4.0-5.20); Red Cell Distribution Width 18.1 % (11.8-14.3)
[2024-12-09 04:29] LABS: Alanine Aminotransferase 37 U/L (7-40); Albumin 3.9 g/dL (3.2-4.8); Anion Gap 7 (5-15); BUN/Creatinine Ratio 42.7 (10.0-20.0); Carbon Dioxide 30 mmol/L (20-31); Total Protein 6.7 g/dL (5.7-8.2)
[2024-12-09 04:58] LABS: Blood Urea Nitrogen 41 mg/dL (9-23); Chloride 108 mmol/L (98-107); Glucose 154 mg/dL (74-106); Potassium 3.4 mmol/L (3.5-5.1); Sodium 145 mmol/L (136-145)
[2024-12-09 04:59] LABS: Alkaline Phosphatase 45 U/L (46-116); Aspartate Aminotransferase < 8 U/L (13-40); Bilirubin, Total 0.2 mg/dL (0.2-1.0); Calcium 10.5 mg/dL (8.7-10.4)
--- NOTE | 2024-12-09 05:20 | DVH ---
EXAM: XR Chest, 1 View CLINICAL INDICATION: intubation TECHNIQUE: Frontal view of the chest. COMPARISON: XY CHEST PORTABLE on DOS: 12/08/24, XY CHEST PORTABLE on DOS: 12/07/24, XY CHEST PORTABLE o n DOS: 12/07/24, XY CHEST PORTABLE on DOS: 12/06/24, XY CHEST PORTABLE on DOS: 12/05/24 FINDINGS: LUNGS AND PLEURAL SPACES: Mild pulmonary congestion. No consolidation. No pneumothorax. HEART: Unremarkable. No cardiomegaly. MEDIASTINUM: Unremarkable. Normal mediastinal contour. BONES/JOINTS: Unremarkable. No acute fracture. TUBES, LINES AND DEVICES: ETT with distal tip 6.3 cm from the kaykay. OTHER FINDINGS: . IMPRESSION: 1. ETT with distal tip 6.3 cm from the kaykay. 2. Mild pulmonary congestion.
--- NOTE | 2024-12-09 05:25 | DVH ---
Exam: US US GUIDED VASCULAR ACCESS Clinical History: PICC LINE PLACEMENT Comparison: None Findings: Targeted sonographic evaluation of the upper arm veinwas obtained utilizing grayscale and color Doppl er imaging. IMPRESSION: Sonographic assistance for central line placement. Please refer to procedural report for detailed fin dings.
[2024-12-09 07:26] LABS: Base Excess 4.2 mmol/L (-2.0-3.0)
[2024-12-09] MEDS: POTASSIUM CHL 20MEQ/100ML 100 ML IV ONE ×2 (08:30→18:41)
--- NOTE | 2024-12-09 14:13 | DVH ---
BILATERAL UPPER EXTREMITY VENOUS DOPPLER CLINICAL HISTORY: ro dvt TECHNIQUE: Upper extremity venous Doppler study was performed. Comparison: None FINDINGS: internal jugular, subclavian, axillary, brachial, basilic, cephalic, radial and ulnar veins appear pa tent with normal augmentation, phasicity, compressibility and color-flow. IMPRESSION: 1. No sonographic evidence of DVT in the right and left upper extremity.
--- NOTE | 2024-12-09 14:31 | DVH ---
Bilateral Upper Extremity Arterial Duplex Clinical History: rule out PAD Comparison: None Technique: Duplex Doppler evaluation including color Doppler and spectral/pulsed waveform analysis of the upper extremity arteries was performed. Findings: RIGHT: Peak systolic velocities are as follows: Subclavian 74 cm/s Axillary 76 cm/s Brachial 123 cm/s Prox Radial 84 cm/s Prox Ulnar 139 cm/s The waveforms are multiphasic. LEFT: Peak systolic velocities are as follows: Subclavian 105 cm/s Axillary 161 cm/s Brachial 197 cm/s Prox Radial 104 cm/s Prox Ulnar 111 cm/s The waveforms are multiphasic. IMPRESSION: Nonspecific mild elevation in velocities of the right brachial artery, right ulnar artery, left axill jenn artery and left brachial artery. Multiphasic arterial waveforms are present.
[2024-12-09 15:09] LABS: Base Excess 4.2 mmol/L (-2.0-3.0)
--- NOTE | 2024-12-09 17:59 | DVHPNRES ---
Progress Note Date Seen: Dec 09, 2024 Resident Creating Document: ALDAIR VILLEGAS RESIDENT Has the PT tested + for MRSA If YES, has PT been informed?: No Medical Necessity Reason Pt with a Central, PICC or Fol: Yes The following are medically ne: PICC Line, Palacios Catheter Reason for palacios catheter: Strict I&O, Total Immobilization Subjective Review of Systems 64-year-old female patient with past medical history of COPD, heart failure, asthma, anxiety, depression, panic attacks, psoriasis , patient was brought to the hospital on December 01 with a chief complaint of shortness of breaths for the past 5 days before admission, she was started on breathing treatments, at the time the glucose levels were noted to be on 190s and patient was lethargic, tachypneic and tachycardic, per family patient had flu symptoms a couple of days prior to admission, ABG at that time showed marked respiratory acidosis with pCO2 on the 170s, in the ER they decided for intubation. Patient noted with an open ulcer to her right abdominal fold with two open ulcer on her medical sacrum (1.5x0.5cm) and left buttock (0.5x0.5cm), Patient still on mechanical ventilation and sedation, patient was placed on CPAP trial this afternoon at 2:30 p.m. for respiratory exercise, patient tolerates well but based on current clinical status patient will not be able to be extubated at this time, tomorrow patient will need a new CPAP trial in the morning, said this will be discontinue early in the morning and we will monitor closely patient's pulmonary response. wound culture positive for Enterococcus Faecium , patient on IV antibiotics( cefepime and linezolid), wounds were evaluated and seems to be improving, wound care team on board. Lasix 20 mg was increased b.i.d., we will monitor closely urine output and net balance. Monitor closely electrolytes, patient will be given 20 mEq as we just increased the Lasix, we will monitor potassium tonight at 10:00 p.m.. Objective vital signs Vital Sign Date Time Temp Pulse Resp B/P (MAP) Pulse Ox O2 Delivery O2 Flow Rate FiO2 12/09/24 16:00 19 97 Mechanical Ventilator+ 35 35 12/09/24 16:00 107 12/09/24 15:42 158/79 (105) 12/09/24 04:00 97.4 97.4 Total Intake and Output 12/08/24 12/08/24 12/09/24 15:00 23:00 07:00 Intake Total 816.56 ml 610.56 ml 886.53 ml Output Total 1050 ml 450 ml Balance 816.56 ml -439.44 ml 436.53 ml medications Current Medications Medications Dose Ordered Sig/Oswaldo Route Start Time Stop Time Status Last Admin Dose Admin Midazolam HCl 50 ml @ 1 mls/hr Q24H IV 12/01/24 13:00 12/08/24 17:36 5 MLS/HR Fentanyl Citrate 250 ml @ 2.5 mls/hr Q24H IV 12/01/24 14:30 12/09/24 06:37 5 MLS/HR Norepinephrine Bitartrate 250 ml @ 3.75 mls/hr Q24H IV 12/01/24 18:15 12/04/24 12:00 3.75 MLS/HR Propofol 100 ml @ 2.73 mls/hr Q24H IV 12/01/24 20:00 12/09/24 07:38 19.11 MLS/HR Acetaminophen 650 mg Q6HP PRN PO 12/01/24 22:30 12/01/24 23:34 650 MG Lactulose 30 ml BID PO 12/02/24 10:00 12/08/24 21:49 30 ML Pantoprazole Sodium 40 mg DAILY IV 12/01/24 22:45 12/09/24 09:47 40 MG Ipratropium [place] 0.5 mg Q4HWA NEB 12/03/24 06:00 12/09/24 13:44 0.5 MG Albuterol 2.5 mg Q4HWA NEB 12/03/24 06:00 12/09/24 13:44 2.5 MG Albuterol 2.5 mg Q3HPRN PRN NEB 12/03/24 01:15 12/06/24 01:57 2.5 MG Polyethylene Glycol 17 gm DAILY PO 12/04/24 10:00 12/07/24 09:20 17 GM Sennosides 17.2 mg HS PO 12/03/24 22:00 12/08/24 21:50 17.2 MG Dexmedetomidine HCl 400 mcg/ Dextrose 100 ml @ 4.55 mls/hr [id number] IV 12/05/24 13:30 12/09/24 09:46 4.55 MLS/HR Iron Sucrose 110 ml @ 110 mls/hr DAILY@1200 IV 12/06/24 12:00 12/10/24 12:59 12/09/24 12:15 110 MLS/HR Linezolid 300 ml @ 150 mls/hr Q12HR IV 12/06/24 22:00 12/09/24 09:50 150 MLS/HR Hydralazine HCl 10 mg Q6HP PRN IV 12/06/24 20:30 12/06/24 22:02 10 MG Budesonide 0.5 mg BID NEB 12/07/24 10:00 12/09/24 09:57 0.5 MG Ondansetron HCl 4 mg Q6HPRN PRN IV 12/07/24 11:45 12/07/24 11:35 4 MG Enteral Nutritional Formula 1,000 ml 35ML/HR GT 12/07/24 14:00 12/07/24 20:05 1,000 ML Methylprednisolone Sodium Succinate 40 mg Q8HR IV 12/07/24 22:00 12/09/24 13:48 40 MG Cefepime HCl 50 ml @ 12.5 mls/hr Q8HR IV 12/07/24 22:00 12/09/24 13:47 12.5 MLS/HR Furosemide 20 mg DAILY IV 12/07/24 16:30 12/09/24 09:48 20 MG Sodium Chloride 10 ml QSHIFT@10,22 IV 12/08/24 22:00 12/09/24 09:49 10 ML Examination Neurology: Sedated on mechanical ventilation . Respiratory: wheezings present bilaterally Cardiovascular: Regular rate, Normal S1, Normal S2 Abdominal: hyperactive bowel sounds, abdomen distended, open wound in lower abdomen. Extremities: No cyanosis, No edema, Normal pulses Skin: Lower extremity plaque psoriasis, red patches with silvery scales.open wound in and sacrum and left buttock.no purulent fluid draining. laboratory and microbiology Laboratory Tests 12/09/24 03:06 Test 12/09/24 03:06 Range/Units Serum Glucose 154 H 74-106 mg/dL Microbiology Date/Time Source Procedure Growth Status 12/02/24 16:30 Nose MRSA Screen - Final Complete 12/01/24 13:20 Blood Blood Culture - Final NO GROWTH AFTER 5 DAYS OF INCUBATION. Complete 12/01/24 12:58 Sputum Gram Stain - Final Complete 12/01/24 12:58 Sputum Respiratory Culture - Final Complete Labs and/or images reviewed: Labs reviewed by me, Image(s) reviewed by me Problem List/Assessment/Plan Problem List/Assessment/Plan Neurology #sedated under mechanical ventilation - head ct negative - CPAP trial for AM Cardiovascular # Septic shock # Possible acute on chronic diastolic heart failure 60% EF # Aortic atherosclerosis # Hypertension # Mild tricuspid regurgitation # Mild aortic root enlargement. # Left atrial enlargement - not on pressors - Lasix 20 mEq BID IV Respiratory # Acute hypercapnic respiratory failure likely due to COPD exacerbation due to Gram-positive/Gram-negative bacterial pneumonia # Pulmonary vascular congestion # COPD exacerbation # Respiratory acidosis,resolved - On mechanical ventilation - Lasix 20 mg BID - Methylprednisolone 40 mg IV TID - Albuterol neb - Ipratropium neb GI #Acute abdominal distention likely due to constipation -Manual disimpaction -Place Ng tube -Lactulose 30cc BID /renal #hypokalemia #Dehydration # high BUN/Cr ratio #Palacios catheter since 12/01 #Uterine fibroids - potassium replaced -potassium level for 10 pm - K 20 meq iv now Endocrine #type 1 obesity #metabolic syndrome #Infectious disease # Septic shock likely due to Gram-positive/Gram-negative bacterial pneumonia # Skin abscess positive for E.Faecium - Linezolid 600 mg Q12 - Cefepime Q8h Heme/Onc Normocytic normochromic anemia Skin: #Skin psoriasis #skin abscess likely due to Hydradenitis suppurativa Vasquez II/III - wound culture positive for E.Faecium - iv antibiotics (linezolid and cefepime) - wound care - surgery on board GI prophylaxis -IV pantoprazole 40mg daily DVT prophylaxis - SCD Drips: fentanyl Versed lines Central line placed on right internal jugular vein on 12/01/24 dc on 12/08/24 PICC line on 12/08/24 Palacios catheter since 12/01 Periphereal line 12/01 case discussed with critical care : time spent not including procedures: 82 minutes full code Plan discussed with: Other (caregiver) My Orders My Orders Orders - ALDAIR VILLEGAS RESIDENT Procedure Category Date Status Time Chest Portable XY 12/09/24 Resulted 04:00 Abg W/ Co-Ox RT 12/09/24 Logged 04:00 Bi Lat Upper Dvt US 12/09/24 Resulted 10:57 Bilat Upper Ext Art US 12/09/24 Resulted Duplex 10:57 Abg W/ Co-Ox RT 12/09/24 Logged 15:00 Dietary Evaluation Review Recommendations by RD: PPN/TPN Comments: 1) If GI route is preferred, consider Jevity 1.2 @ 45 mL/hr goal rate as tolerated. Flush with 200 mL free H2O Q6. Goal rate will provide 1296 kcals, 60g Pro, and 1672 mL H2O (including flushes) per 24 hrs. Goal rate will provide ~ 100% of daily estimated energy requirements and 82% daily estimated protein requirements. 2) Initiate Kyle @ 1 pk bid 3) If patient remains NPO for more than 7 days, consider TPN to meet at least 75% of estimated needs 4) Advance patient diet when medically feasible to cardiac diet 5) Refer to outpatient RD for weight management 6) F/u with pulmonology and cardiology Expected Outcomes/Goals: 1) patient to receive nutrition within 7 days 2) labs and wound to improve 3) diet to advance 4) f/u in 3 days ALDAIR VILLEGAS RESIDENT Dec 09, 2024 17:59
[2024-12-09] MEDS: FUROSEMIDE 20 MG/2 ML VIAL IV SCH (18:39)
[2024-12-09 22:38] LABS: Potassium 3.4 mmol/L (3.5-5.1)
[2024-12-09 22:42] LABS: Magnesium 2.3 mg/dL (1.6-2.6)
[2024-12-10] VITALS (102 sets, daily range): BP systolic 101–164; BP diastolic 44–109; PULSE 56–126; RESP 12–33; TEMP 97.5–98.6; O2SAT 95–100
[2024-12-10] MEDS: POTASSIUM CHL 20MEQ/100ML 100 ML IV ONE (01:38)
--- NOTE | 2024-12-10 05:30 | DVH ---
CHEST RADIOGRAPH Indication: INTUBATED Technique: Single frontal view of the chest was obtained Comparison: XY CHEST PORTABLE on DOS: 12/09/24, XY CHEST PORTABLE on DOS: 12/08/24, XY CHEST PORTABLE on DOS: 12/07/24 IMPRESSION: Heart is prominent size. There is mild interstitial prominence and mild pulmonary vascular congestio n. No focal airspace opacity, effusion, or pneumothorax. Support lines and tubes appear similar to pr ior examination.
[2024-12-10 07:47] LABS: Hemoglobin 8.5 g/dL (12.2-16.2); White Blood Cell 12.3 10^3/uL (4.4-10.8)
[2024-12-10 07:48] LABS: Hematocrit 27.2 % (36.0-46.0); Mean Corpuscular Hemoglobin 26.8 pg (28.0-32.0); Mean Corpuscular Hgb Conc. 31.1 g/dL (32.0-36.0); Mean Corpuscular Volume 86.1 fL (80.0-100.0); Platelet Count (auto) 240 10^3/uL (140-450); Red Blood Cells 3.16 10^6/uL (4.0-5.20); Red Cell Distribution Width 18.5 % (11.8-14.3)
[2024-12-10 07:54] LABS: Basophils % (manual) 0 (0.0-2.0); Blast Cells 0; Eosinophils % (manual) 0 (0-7); Promyelocytes % 0
[2024-12-10 08:06] LABS: Alanine Aminotransferase 34 U/L (7-40); Alkaline Phosphatase 46 U/L (46-116); Anion Gap 5 (5-15); Aspartate Aminotransferase 18 U/L (13-40); Calcium 10.1 mg/dL (8.7-10.4); Carbon Dioxide 31 mmol/L (20-31); Potassium 3.9 mmol/L (3.5-5.1); Total Protein 6.8 g/dL (5.7-8.2)
[2024-12-10 08:12] LABS: Bilirubin, Total 0.2 mg/dL (0.2-1.0); Blood Urea Nitrogen 37 mg/dL (9-23); Chloride 110 mmol/L (98-107); Glucose 153 mg/dL (74-106); Sodium 146 mmol/L (136-145)
[2024-12-10 08:24] LABS: Band Neutrophils % (manual) 3; Lymphocytes % (manual) 6 (10.0-50.0); Metamyelocytes % 1; Monocytes % (manual) 8 (0-12); Myelocytes % 1; Reactive Lymphocytes 1
[2024-12-10 08:25] LABS: Anisocytosis Slight; Hypochromia Slight; Platelet Estimate Adequate
--- NOTE | 2024-12-10 13:08 | DVHPN2 ---
Subjective The patient is seen and examined at bedside. No change overnight. Patient currently on CPAP. Patient is very agitated.. Reviewed: Care Plan, H&P, Labs, Medications, Previous Orders, Radiology Changes from previous H/P or p: No Changes Objective Vitals Vital Signs Date Time Temp Pulse Resp B/P (MAP) Pulse Ox O2 Delivery O2 Flow Rate FiO2 12/10/24 11:15 102 21 164/76 (105) 98 12/10/24 11:09 35 12/10/24 08:00 97.5 97.5 12/10/24 06:00 Mechanical Ventilator+ Intake/Output Intake and Output 12/10/24 07:00 Intake Total 1231.785 ml Output Total 2650 ml Balance -1418.215 ml Intake Oral 50 ml IV Total 1015.785 ml Tube Feeding 166 ml Output Urine Total 2650 ml General Appearance: Other (Intubated, on vent) HEENT: Atraumatic, PERRLA, EOMI, Mucous membr. moist/pink Neck: Supple Lungs: Clear to auscultation, Normal air movement Cardiovascular: Regular rate, Normal S1, Normal S2, No murmurs, Gallops, Rubs Abdomen: Normal bowel sounds, Soft, No tenderness Neuro: Cranial nerves 3-12 NL Psych/Mental Status: Mental status NL Medications Current Medications Medications Dose Ordered Sig/Oswaldo Route Start Time Stop Time Status Last Admin Dose Admin Midazolam HCl 50 ml @ 1 mls/hr Q24H IV 12/01/24 13:00 12/08/24 17:36 5 MLS/HR Fentanyl Citrate 250 ml @ 2.5 mls/hr Q24H IV 12/01/24 14:30 12/09/24 06:37 5 MLS/HR Norepinephrine Bitartrate 250 ml @ 3.75 mls/hr Q24H IV 12/01/24 18:15 12/04/24 12:00 3.75 MLS/HR Propofol 100 ml @ 2.73 mls/hr Q24H IV 12/01/24 20:00 12/10/24 12:36 10.92 MLS/HR Acetaminophen 650 mg Q6HP PRN PO 12/01/24 22:30 12/01/24 23:34 650 MG Lactulose 30 ml BID PO 12/02/24 10:00 12/09/24 22:50 30 ML Pantoprazole Sodium 40 mg DAILY IV 12/01/24 22:45 12/10/24 09:53 40 MG Ipratropium [place] 0.5 mg Q4HWA [facility] 12/03/24 06:00 12/10/24 11:08 0.5 MG Albuterol 2.5 mg Q4HWA NEB 12/03/24 06:00 12/10/24 11:08 2.5 MG Albuterol 2.5 mg Q3HPRN PRN NEB 12/03/24 01:15 12/06/24 01:57 2.5 MG Polyethylene Glycol 17 gm DAILY PO 12/04/24 10:00 12/07/24 09:20 17 GM Sennosides 17.2 mg HS PO 12/03/24 22:00 12/09/24 22:50 17.2 MG Dexmedetomidine HCl 400 mcg/ Dextrose 100 ml @ 4.55 mls/hr [id number] IV 12/05/24 13:30 12/10/24 03:02 15.925 MLS/HR Linezolid 300 ml @ 150 mls/hr Q12HR IV 12/06/24 22:00 12/10/24 09:53 150 MLS/HR Hydralazine HCl 10 mg Q6HP PRN IV 12/06/24 20:30 12/09/24 18:38 10 MG Budesonide 0.5 mg BID NEB 12/07/24 10:00 12/10/24 11:08 0.5 MG Ondansetron HCl 4 mg Q6HPRN PRN IV 12/07/24 11:45 12/07/24 11:35 4 MG Enteral Nutritional Formula 1,000 ml 35ML/HR GT 12/07/24 14:00 12/07/24 20:05 1,000 ML Methylprednisolone Sodium Succinate 40 mg Q8HR IV 12/07/24 22:00 12/10/24 07:23 40 MG Cefepime HCl 50 ml @ 12.5 mls/hr Q8HR IV 12/07/24 22:00 12/10/24 07:22 12.5 MLS/HR Sodium Chloride 10 ml QSHIFT@10,22 IV 12/08/24 22:00 12/10/24 09:53 10 ML Furosemide 20 mg BIDD IV 12/09/24 18:05 12/10/24 07:23 20 MG Laboratory Results Laboratory Tests 12/10/24 07:30 Chemistry Test 12/09/24 21:58 12/10/24 07:30 Magnesium Level 2.3 mg/dL (1.6-2.6) Albumin 4.0 g/dL (3.2-4.8) Calcium Level 10.1 mg/dL (8.7-10.4) Total Protein 6.8 g/dL (5.7-8.2) LFT Test 12/10/24 07:30 Alanine Aminotransferase (ALT) 34 U/L (7-40) Alkaline Phosphatase 46 U/L (46-116) Aspartate Amino Transferase (AST) 18 U/L (13-40) Total Bilirubin 0.2 mg/dL (0.2-1.0) Urinalysis Test 12/01/24 12:55 Urine Color Light-yellow (Yellow) Urine Clarity Clear (Clear) Urine pH 6.0 (5.0-9.0) Urine Specific [place] 1.018 (1.001-1.035) Urine Protein 1+ (Negative) H Urine Ketones Negative (Negative) Urine Blood Negative /uL (Negative) Urine Nitrite Negative (Negative) Urine Bilirubin Negative (Negative) Urine Urobilinogen Normal mg/dL (Negative) Urine Leukocyte Esterase Negative /uL (Negative) Urine RBC 1 /hpf (0 - 4) Urine Microscopic WBC 1 /HPF (0-5) Urine Squamous Epithelial Cells Few /hpf (<5) Urine Bacteria None seen /hpf (None Seen) Urine Hyaline Casts Few /lpf (0 - 2) Urine Mucus Few (None Seen) Urine Glucose Normal mg/dL (Normal) Blood Gas Results Test 12/09/24 15:03 Arterial Blood pH 7.383 (7.350-7.450) FiO2 % 40.0 Microbiology Microbiology Date/Time Source Procedure Growth Status 12/02/24 16:30 Nose MRSA Screen - Final Complete 12/01/24 13:20 Blood Blood Culture - Final NO GROWTH AFTER 5 DAYS OF INCUBATION. Complete 12/01/24 12:58 Sputum Gram Stain - Final Complete 12/01/24 12:58 Sputum Respiratory Culture - Final Complete Labs and/or images reviewed: Labs reviewed by me Assessment/Plan Assessment/Plan Problem List/Assessment/Plan Neurology #sedated under mechanical ventilation - head ct negative - CPAP trial for AM Cardiovascular # Septic shock # Possible acute on chronic diastolic heart failure 60% EF # Aortic atherosclerosis # Hypertension # Mild tricuspid regurgitation # Mild aortic root enlargement. # Left atrial enlargement - not on pressors - Lasix 20 mEq BID IV Respiratory # Acute hypercapnic respiratory failure likely due to COPD exacerbation due to Gram-positive/Gram-negative bacterial pneumonia # Pulmonary vascular congestion # COPD exacerbation # Respiratory acidosis,resolved - On mechanical ventilation - Lasix 20 mg BID - Methylprednisolone 40 mg IV TID - Albuterol neb - Ipratropium neb GI #Acute abdominal distention likely due to constipation -Manual disimpaction -Place Ng tube -Lactulose 30cc BID /renal #hypokalemia #Dehydration # high BUN/Cr ratio #Cavazos catheter since 12/01 #Uterine fibroids - potassium replaced -potassium level for 10 pm - K 20 meq iv now Endocrine #type 1 obesity #metabolic syndrome #Infectious disease # Septic shock likely due to Gram-positive/Gram-negative bacterial pneumonia # Skin abscess positive for E.Faecium - Linezolid 600 mg Q12 - Cefepime Q8h Heme/Onc Normocytic normochromic anemia Skin: #Skin psoriasis #skin abscess likely due to Hydradenitis suppurativa Vasquez II/III - wound culture positive for E.Faecium - iv antibiotics (linezolid and cefepime) - wound care - surgery on board GI prophylaxis -IV pantoprazole 40mg daily DVT prophylaxis - SCD Drips: fentanyl Versed lines Central line placed on right internal jugular vein on 12/01/24 dc on 12/08/24 PICC line on 12/08/24 Cavazos catheter since 12/01 Periphereal line 12/01 critical care : time spent for this case exclude procedure is 35 minutes full code Continuing current management. CPAP trial right now. The patient tolerated. Hopefully patient be extubated Plan discussed with: Other (RN) Date of Service: Dec 10, 2024 Billing Provider: ANNIKA DIEGO MD Common Visit Codes: [id number] CARE 30-74 MIN ANNIKA DIEGO MD Dec 10, 2024 13:08
--- NOTE | 2024-12-10 18:43 | DVHPN2 ---
Progress Note - Dictate Date Seen: Dec 10, 2024 Has the PT tested + for MRSA If YES, has PT been informed?: No Medical Necessity Reason Pt with a Central, PICC or Fol: Yes The following are medically ne: PICC Line, Palacios Catheter Reason for palacios catheter: Strict I&O, Total Immobilization Subjective Patient seen and examined at bedside. Sedated, intubated on mechanical ventilator. Overnight events reviewed. vital signs Vital Sign Date Time Temp Pulse Resp B/P (MAP) Pulse Ox O2 Delivery O2 Flow Rate FiO2 12/10/24 18:15 126/55 12/10/24 18:00 35 12/10/24 18:00 65 22 98 12/10/24 18:00 Mechanical Ventilator+ 12/10/24 16:00 98.5 98.5 Total Intake and Output 12/09/24 12/09/24 12/10/24 15:00 23:00 07:00 Intake Total 126.250 ml 360.855 ml 744.680 ml Output Total 1350 ml 1300 ml Balance 126.250 ml -989.145 ml -555.320 ml medications Current Medications Medications Dose Ordered Sig/Oswaldo Route Start Time Stop Time Status Last Admin Dose Admin Midazolam HCl 50 ml @ 1 mls/hr Q24H IV 12/01/24 13:00 12/08/24 17:36 5 MLS/HR Fentanyl Citrate 250 ml @ 2.5 mls/hr Q24H IV 12/01/24 14:30 12/10/24 14:56 10 MLS/HR Norepinephrine Bitartrate 250 ml @ 3.75 mls/hr Q24H IV 12/01/24 18:15 12/04/24 12:00 3.75 MLS/HR Propofol 100 ml @ 2.73 mls/hr Q24H IV 12/01/24 20:00 12/10/24 18:32 16.38 MLS/HR Acetaminophen 650 mg Q6HP PRN PO 12/01/24 22:30 12/01/24 23:34 650 MG Lactulose 30 ml BID PO 12/02/24 10:00 12/09/24 22:50 30 ML Pantoprazole Sodium 40 mg DAILY IV 12/01/24 22:45 12/10/24 09:53 40 MG Ipratropium [place] 0.5 mg Q4HWA NEB 12/03/24 06:00 3/8/25 18:07 0.5 MG Albuterol 2.5 mg Q4HWA NEB 12/03/24 06:00 12/10/24 18:07 2.5 MG Albuterol 2.5 mg Q3HPRN PRN NEB 12/03/24 01:15 12/06/24 01:57 2.5 MG Polyethylene Glycol 17 gm DAILY PO 12/04/24 10:00 12/07/24 09:20 17 GM Sennosides 17.2 mg HS PO 12/03/24 22:00 12/09/24 22:50 17.2 MG Dexmedetomidine HCl 400 mcg/ Dextrose 100 ml @ 4.55 mls/hr [id number] IV 12/05/24 13:30 12/10/24 14:55 15.925 MLS/HR Linezolid 300 ml @ 150 mls/hr Q12HR IV 12/06/24 22:00 12/10/24 09:53 150 MLS/HR Hydralazine HCl 10 mg Q6HP PRN IV 12/06/24 20:30 12/09/24 18:38 10 MG Budesonide 0.5 mg BID NEB 12/07/24 10:00 12/10/24 11:08 0.5 MG Ondansetron HCl 4 mg Q6HPRN PRN IV 12/07/24 11:45 12/07/24 11:35 4 MG Enteral Nutritional Formula 1,000 ml 35ML/HR GT 12/07/24 14:00 12/07/24 20:05 1,000 ML Methylprednisolone Sodium Succinate 40 mg Q8HR IV 12/07/24 22:00 12/10/24 14:54 40 MG Cefepime HCl 50 ml @ 12.5 mls/hr Q8HR IV 12/07/24 22:00 12/10/24 14:54 12.5 MLS/HR Sodium Chloride 10 ml QSHIFT@10,22 IV 12/08/24 22:00 12/10/24 09:53 10 ML Furosemide 20 mg BIDD IV 12/09/24 18:05 12/10/24 07:23 20 MG objective Gen.: Patient lying in bed in medical ICU. Sedated, intubated on mechanical ventilator. Head: Normocephalic, atraumatic. Eyes: PERRLA. Ears: Normal external anatomy. Throat: Endotracheal tube and orogastric tube in place. Neck: Supple, trachea midline. Chest: Transmitted breath sounds bilaterally. Decreased air entry bilaterally. No wheezing. Bibasilar crackles. Cardiovascular: Positive S1, positive S2. Regular rate and rhythm. Abdomen: Positive bowel sounds in all 4 quadrants. Soft, nontender, nondistended. : Palacios in place. Normal external genitalia. Rectal: Deferred. Skin: Warm, dry. Intact. Extremities: 2+ radial pulses bilaterally. No lower extremity edema. Neuro: Sedated. laboratory and microbiology Laboratory Tests 12/10/24 07:30 Test 12/10/24 07:30 Range/Units Serum Glucose 153 H 74-106 mg/dL Assessment/Plan Impression: Acute on chronic hypercarbic respiratory failure On mechanical ventilator Acute exacerbation of COPD Pulmonary edema Obesity Events: Remains on vent support On AC mode; RR 22, VT 450, PEEP 5, FiO2 35% Sedated on Propofol, Fentanyl On Precedex drip. Continue bronchodilators. Continue antibiotics. Continue steroids Iron supplementation Monitor hemoglobin Protonix for GI prophylaxis Monitor renal function Monitor electrolytes. Supplement as necessary. Potassium supplementation SBT CPAP with PS 16, PEEP of 5. CXR reviewed, notable for mild interstitial prominence and mild pulmonary vascular congestion. No focal airspace opacity, effusion, or pneumothorax. ABG reviewed, compensated. Labs and imaging reviewed. Rest of plan as noted below. Plan: s/p intubation on mechanical ventilator. On AC mode; RR 22, VT 450, PEEP 5, FiO2 35% Titrate FIO2 to keep O2 saturation between 88-94%. Chronic CO2 retainer VAP bundle. Daily ABG and CXR while intubated Sedate for ventilator synchrony Continue bronchodilators. Continue antibiotics. Continue steroids Pressors as necessary for hemodynamic support Titrate to keep mean arterial pressure greater than 65 mmHg. Monitor renal function Monitor electrolytes. Supplement as necessary. Monitor ins and outs. Diet and lifestyle modifications for weight reduction Obesity - complicates all care GI prophylaxis. DVT prophylaxis. Prognosis: Poor given patient's multiple co-morbidities. Condition: Critical Rest of plan per hospitalist and other consultants. A total of 35 minutes of critical care time was spent reviewing the patient record, examining the patient, making a diagnostic and therapeutic plan, discussing this plan with the medical personnel, following up on diagnostic studies and following the patient for clinical stability excluding any and all procedures. At least 50% of this time was spent in direct, [id number] contact. Thank you, Dr. Barajas, for allowing me to participate in this patient's care. Further recommendations will depend on the patient's clinical course. Please do not hesitate to contact me if you have any questions or concerns. This medical document was created using an electronic medical record system with [employer] dictation system. Although these documentations are being carefully reviewed, there may still be some phonetic and typographical changes. The errors are purely typographical, due to imperfection on the software program, and do not reflect any compromise in the patient's medical care. Dietary Evaluation Review Recommendations by RD: PPN/TPN Comments: 1) If GI route is preferred, consider Jevity 1.2 @ 45 mL/hr goal rate as tolerated. Flush with 200 mL free H2O Q6. Goal rate will provide 1296 kcals, 60g Pro, and 1672 mL H2O (including flushes) per 24 hrs. Goal rate will provide ~ 100% of daily estimated energy requirements and 82% daily estimated protein requirements. 2) Initiate Kyle @ 1 pk bid 3) If patient remains NPO for more than 7 days, consider TPN to meet at least 75% of estimated needs 4) Advance patient diet when medically feasible to cardiac diet 5) Refer to outpatient RD for weight management 6) F/u with pulmonology and cardiology Expected Outcomes/Goals: 1) patient to receive nutrition within 7 days 2) labs and wound to improve 3) diet to advance 4) f/u in 3 days Plan discussed with: Other (DORY Horner) Critical Care Time(min): 35 LOGAN NAVARRO MD Dec 10, 2024 18:43
[2024-12-11] VITALS (85 sets, daily range): BP systolic 83–162; BP diastolic 42–83; PULSE 65–131; RESP 10–26; TEMP 98.3–98.8; O2SAT 93–100
[2024-12-11] MEDS: DexmedeTOMIDine 4 ML IV ONE (00:55)
[2024-12-11 04:04] LABS: Hemoglobin 8.6 g/dL (12.2-16.2); Mean Corpuscular Hemoglobin 29.2 pg (28.0-32.0); Mean Corpuscular Hgb Conc. 33.2 g/dL (32.0-36.0); Mean Corpuscular Volume 88.1 fL (80.0-100.0); Platelet Count (auto) 200 10^3/uL (140-450); Red Blood Cells 2.95 10^6/uL (4.0-5.20); Red Cell Distribution Width 18.6 % (11.8-14.3); White Blood Cell 9.4 10^3/uL (4.4-10.8)
[2024-12-11 04:25] LABS: Albumin 3.5 g/dL (3.2-4.8); Anion Gap 6 (5-15); BUN/Creatinine Ratio 36.7 (10.0-20.0); Calcium 9.4 mg/dL (8.7-10.4); Carbon Dioxide 26 mmol/L (20-31); Chloride 102 mmol/L (98-107); Potassium 3.8 mmol/L (3.5-5.1); Total Protein 6.4 g/dL (5.7-8.2)
[2024-12-11 04:28] LABS: Basophils % (manual) 0 (0.0-2.0); Blast Cells 0; Eosinophils % (manual) 0 (0-7); Myelocytes % 0; Promyelocytes % 0; Reactive Lymphocytes 0
[2024-12-11 04:47] LABS: Alanine Aminotransferase 26 U/L (7-40); Alkaline Phosphatase 39 U/L (46-116); Aspartate Aminotransferase 19 U/L (13-40); Bilirubin, Total < 0.2 mg/dL (0.2-1.0); Blood Urea Nitrogen 29 mg/dL (9-23); Glucose 250 mg/dL (74-106); Sodium 134 mmol/L (136-145)
--- NOTE | 2024-12-11 05:39 | DVH ---
CHEST RADIOGRAPH Indication: Intubated patient Technique: Single frontal view of the chest was obtained Comparison: XY CHEST PORTABLE on DOS: 12/10/24, XY CHEST PORTABLE on DOS: 12/09/24, XY CHEST PORTABLE on DOS: 12/08/24 IMPRESSION: Support lines and tubes appear stable and satisfactory. The lungs appear relatively clear without fo fitz airspace opacity, effusion, or pneumothorax.
[2024-12-11 06:06] LABS: Band Neutrophils % (manual) 4; Lymphocytes % (manual) 7 (10.0-50.0); Metamyelocytes % 1; Monocytes % (manual) 2 (0-12)
[2024-12-11 06:07] LABS: Platelet Estimate Adequate
--- NOTE | 2024-12-11 12:54 | DVHPN2 ---
Subjective The patient is seen and examined at bedside. No change overnight. The patient did not pass CPAP yesterday Reviewed: Care Plan, H&P, Labs, Medications, Previous Orders, Radiology Changes from previous H/P or p: No Changes Objective Vitals Vital Signs Date Time Temp Pulse Resp B/P (MAP) Pulse Ox O2 Delivery O2 Flow Rate FiO2 12/11/24 11:56 88 11 123/51 (75) 95 30 12/11/24 08:00 Mechanical Ventilator+ 12/11/24 04:00 98.4 98.4 Intake/Output Intake and Output 12/11/24 07:00 Intake Total 1702.555 ml Output Total 2000 ml Balance -297.445 ml Intake Oral 0 ml IV Total 1682.555 ml Tube Feeding 20 ml Output Urine Total 2000 ml # Bowel Movements 2 General Appearance: Alert, Other (Intubated, on vent) HEENT: Atraumatic, PERRLA, EOMI, Mucous membr. moist/pink Neck: Supple Lungs: Clear to auscultation, Normal air movement Cardiovascular: Regular rate, Normal S1, Normal S2, No murmurs, Gallops, Rubs Abdomen: Normal bowel sounds, Soft, No tenderness, No hepatospenomegaly Extremities: Normal pulses Medications Current Medications Medications Dose Ordered Sig/Oswaldo Route Start Time Stop Time Status Last Admin Dose Admin Midazolam HCl 50 ml @ 1 mls/hr Q24H IV 12/01/24 13:00 12/08/24 17:36 5 MLS/HR Fentanyl Citrate 250 ml @ 2.5 mls/hr Q24H IV 12/01/24 14:30 12/11/24 10:08 12.5 MLS/HR Norepinephrine Bitartrate 250 ml @ 3.75 mls/hr Q24H IV 12/01/24 18:15 12/04/24 12:00 3.75 MLS/HR Propofol 100 ml @ 2.73 mls/hr Q24H IV 12/01/24 20:00 12/11/24 11:22 10.92 MLS/HR Acetaminophen 650 mg Q6HP PRN PO 12/01/24 22:30 12/01/24 23:34 650 MG Lactulose 30 ml BID PO 12/02/24 10:00 12/09/24 22:50 30 ML Pantoprazole Sodium 40 mg DAILY IV 12/01/24 22:45 12/11/24 09:41 40 MG Ipratropium [place] 0.5 mg Q4HWA NEB 12/03/24 06:00 12/11/24 10:04 0.5 MG Albuterol 2.5 mg Q4HWA NEB 12/03/24 06:00 12/11/24 10:04 2.5 MG Albuterol 2.5 mg Q3HPRN PRN NEB 12/03/24 01:15 12/06/24 01:57 2.5 MG Polyethylene Glycol 17 gm DAILY PO 12/04/24 10:00 12/07/24 09:20 17 GM Sennosides 17.2 mg HS PO 12/03/24 22:00 12/09/24 22:50 17.2 MG Dexmedetomidine HCl 400 mcg/ Dextrose 100 ml @ 4.55 mls/hr [id number] IV 12/05/24 13:30 12/11/24 00:54 4.55 MLS/HR Linezolid 300 ml @ 150 mls/hr Q12HR IV 12/06/24 22:00 12/11/24 09:41 150 MLS/HR Hydralazine HCl 10 mg Q6HP PRN IV 12/06/24 20:30 12/09/24 18:38 10 MG Budesonide 0.5 mg BID NEB 12/07/24 10:00 12/11/24 10:04 0.5 MG Ondansetron HCl 4 mg Q6HPRN PRN IV 12/07/24 11:45 12/07/24 11:35 4 MG Enteral Nutritional Formula 1,000 ml 35ML/HR GT 12/07/24 14:00 12/10/24 22:18 1,000 ML Methylprednisolone Sodium Succinate 40 mg Q8HR IV 12/07/24 22:00 12/11/24 05:56 40 MG Cefepime HCl 50 ml @ 12.5 mls/hr Q8HR IV 12/07/24 22:00 12/11/24 05:57 12.5 MLS/HR Sodium Chloride 10 ml QSHIFT@10,22 IV 12/08/24 22:00 12/11/24 09:41 10 ML Furosemide 20 mg BIDD IV 12/09/24 18:05 12/11/24 05:56 20 MG Laboratory Results Laboratory Tests 12/11/24 03:25 Chemistry Test 12/11/24 03:25 Albumin 3.5 g/dL (3.2-4.8) Calcium Level 9.4 mg/dL (8.7-10.4) Total Protein 6.4 g/dL (5.7-8.2) LFT Test 12/11/24 03:25 Alanine Aminotransferase (ALT) 26 U/L (7-40) Alkaline Phosphatase 39 U/L (46-116) L Aspartate Amino Transferase (AST) 19 U/L (13-40) Total Bilirubin < 0.2 mg/dL (0.2-1.0) L Urinalysis Test 12/01/24 12:55 Urine Color Light-yellow (Yellow) Urine Clarity Clear (Clear) Urine pH 6.0 (5.0-9.0) Urine Specific [place] 1.018 (1.001-1.035) Urine Protein 1+ (Negative) H Urine Ketones Negative (Negative) Urine Blood Negative /uL (Negative) Urine Nitrite Negative (Negative) Urine Bilirubin Negative (Negative) Urine Urobilinogen Normal mg/dL (Negative) Urine Leukocyte Esterase Negative /uL (Negative) Urine RBC 1 /hpf (0 - 4) Urine Microscopic WBC 1 /HPF (0-5) Urine Squamous Epithelial Cells Few /hpf (<5) Urine Bacteria None seen /hpf (None Seen) Urine Hyaline Casts Few /lpf (0 - 2) Urine Mucus Few (None Seen) Urine Glucose Normal mg/dL (Normal) Microbiology Microbiology Date/Time Source Procedure Growth Status 12/02/24 16:30 Nose MRSA Screen - Final Complete 12/01/24 13:20 Blood Blood Culture - Final NO GROWTH AFTER 5 DAYS OF INCUBATION. Complete 12/01/24 12:58 Sputum Gram Stain - Final Complete 12/01/24 12:58 Sputum Respiratory Culture - Final Complete Labs and/or images reviewed: Labs reviewed by me Assessment/Plan Assessment/Plan Problem List/Assessment/Plan Neurology #sedated under mechanical ventilation - head ct negative - CPAP trial for AM Cardiovascular # Septic shock # Possible acute on chronic diastolic heart failure 60% EF # Aortic atherosclerosis # Hypertension # Mild tricuspid regurgitation # Mild aortic root enlargement. # Left atrial enlargement - not on pressors - Lasix 20 mEq BID IV Respiratory # Acute hypercapnic respiratory failure likely due to COPD exacerbation due to Gram-positive/Gram-negative bacterial pneumonia # Pulmonary vascular congestion # COPD exacerbation # Respiratory acidosis,resolved - On mechanical ventilation - Lasix 20 mg BID - Methylprednisolone 40 mg IV TID - Albuterol neb - Ipratropium neb GI #Acute abdominal distention likely due to constipation -Manual disimpaction -Place Ng tube -Lactulose 30cc BID /renal #hypokalemia #Dehydration # high BUN/Cr ratio #Cavazos catheter since 12/01 #Uterine fibroids - potassium replaced -potassium level for 10 pm - K 20 meq iv now Endocrine #type 1 obesity #metabolic syndrome #Infectious disease # Septic shock likely due to Gram-positive/Gram-negative bacterial pneumonia # Skin abscess positive for E.Faecium - Linezolid 600 mg Q12 - Cefepime Q8h Heme/Onc Normocytic normochromic anemia Skin: #Skin psoriasis #skin abscess likely due to Hydradenitis suppurativa Vasquez II/III - wound culture positive for E.Faecium - iv antibiotics (linezolid and cefepime) - wound care - surgery on board GI prophylaxis -IV pantoprazole 40mg daily DVT prophylaxis - SCD Drips: fentanyl Versed lines Central line placed on right internal jugular vein on 12/01/24 dc on 12/08/24 PICC line on 12/08/24 Cavazos catheter since 12/01 Periphereal line 12/01 Continuing current management. Continuing with CPAP. Hopefully we can wean the patient off ventilation support soon Critical case spent for this case exclude procedure is 35 minutes. This medical document was created using an electronic medical record system with [employer] direct computerized dictation system. Although this document has been carefully reviewed, there may still be some phonetic and typographical errors. These areas are purely typographical due to imperfections of the software programs, and do not reflect any compromise in the patient's medical care. Plan discussed with: Other (RN) Date of Service: Dec 11, 2024 Billing Provider: ANNIKA DIEGO MD Common Visit Codes: [id number] CARE 30-74 MIN ANNIKA DIEGO MD Dec 11, 2024 12:54
--- NOTE | 2024-12-11 23:39 | DVHPN2 ---
Progress Note - Dictate Date Seen: Dec 11, 2024 Has the PT tested + for MRSA If YES, has PT been informed?: No Medical Necessity Reason Pt with a Central, PICC or Fol: Yes The following are medically ne: PICC Line, Palacios Catheter Reason for palacios catheter: Strict I&O, Total Immobilization Subjective Patient seen and examined at bedside. Sedated, intubated on mechanical ventilator. Overnight events reviewed. vital signs Vital Sign Date Time Temp Pulse Resp B/P (MAP) Pulse Ox O2 Delivery O2 Flow Rate FiO2 12/11/24 23:10 138/62 12/11/24 22:12 78 22 98 30 12/11/24 16:00 98.5 98.5 12/11/24 08:00 Mechanical Ventilator+ Total Intake and Output 12/10/24 12/10/24 12/11/24 15:00 23:00 07:00 Intake Total 665.650 ml 461.580 ml 575.325 ml Output Total 1400 ml 600 ml Balance 665.650 ml -938.420 ml -24.675 ml medications Current Medications Medications Dose Ordered Sig/Oswaldo Route Start Time Stop Time Status Last Admin Dose Admin Midazolam HCl 50 ml @ 1 mls/hr Q24H IV 12/01/24 13:00 12/08/24 17:36 5 MLS/HR Fentanyl Citrate 250 ml @ 2.5 mls/hr Q24H IV 12/01/24 14:30 12/11/24 23:10 17.5 MLS/HR Norepinephrine Bitartrate 250 ml @ 3.75 mls/hr Q24H IV 12/01/24 18:15 12/04/24 12:00 3.75 MLS/HR Propofol 100 ml @ 2.73 mls/hr Q24H IV 12/01/24 20:00 12/11/24 22:58 16.38 MLS/HR Acetaminophen 650 mg Q6HP PRN PO 12/01/24 22:30 12/01/24 23:34 650 MG Lactulose 30 ml BID PO 12/02/24 10:00 12/09/24 22:50 30 ML Pantoprazole Sodium 40 mg DAILY IV 12/01/24 22:45 12/11/24 09:41 40 MG Ipratropium [place] 0.5 mg Q4HWA NEB 12/03/24 06:00 12/11/24 22:12 0.5 MG Albuterol 2.5 mg Q4HWA NEB 12/03/24 06:00 12/11/24 22:12 2.5 MG Albuterol 2.5 mg Q3HPRN PRN NEB 12/03/24 01:15 12/06/24 01:57 2.5 MG Polyethylene Glycol 17 gm DAILY PO 12/04/24 10:00 12/07/24 09:20 17 GM Sennosides 17.2 mg HS PO 12/03/24 22:00 12/09/24 22:50 17.2 MG Dexmedetomidine HCl 400 mcg/ Dextrose 100 ml @ 4.55 mls/hr [id number] IV 12/05/24 13:30 12/11/24 18:32 13.65 MLS/HR Linezolid 300 ml @ 150 mls/hr Q12HR IV 12/06/24 22:00 12/11/24 22:17 150 MLS/HR Hydralazine HCl 10 mg Q6HP PRN IV 12/06/24 20:30 12/09/24 18:38 10 MG Budesonide 0.5 mg BID NEB 12/07/24 10:00 12/11/24 18:09 0.5 MG Ondansetron HCl 4 mg Q6HPRN PRN IV 12/07/24 11:45 12/07/24 11:35 4 MG Enteral Nutritional Formula 1,000 ml 35ML/HR GT 12/07/24 14:00 12/10/24 22:18 1,000 ML Methylprednisolone Sodium Succinate 40 mg Q8HR IV 12/07/24 22:00 12/11/24 22:17 40 MG Cefepime HCl 50 ml @ 12.5 mls/hr Q8HR IV 12/07/24 22:00 12/11/24 22:17 12.5 MLS/HR Sodium Chloride 10 ml QSHIFT@10,22 IV 12/08/24 22:00 12/11/24 22:17 10 ML Furosemide 20 mg BIDD IV 12/09/24 18:05 12/11/24 17:52 20 MG objective Gen.: Patient lying in bed in medical ICU. Sedated, intubated on mechanical ventilator. Head: Normocephalic, atraumatic. Eyes: PERRLA. Ears: Normal external anatomy. Throat: Endotracheal tube and orogastric tube in place. Neck: Supple, trachea midline. Chest: Transmitted breath sounds bilaterally. Decreased air entry bilaterally. No wheezing. Bibasilar crackles. Cardiovascular: Positive S1, positive S2. Regular rate and rhythm. Abdomen: Positive bowel sounds in all 4 quadrants. Soft, nontender, nondistended. : Palacios in place. Normal external genitalia. Rectal: Deferred. Skin: Warm, dry. Intact. Extremities: 2+ radial pulses bilaterally. No lower extremity edema. Neuro: Sedated. laboratory and microbiology Laboratory Tests 12/11/24 03:25 Test 12/11/24 03:25 Range/Units Serum Glucose 250 H 74-106 mg/dL Assessment/Plan Impression: Acute on chronic hypercarbic respiratory failure On mechanical ventilator Acute exacerbation of COPD Pulmonary edema Obesity Events: Remains on vent support On AC mode; RR 22, VT 450, PEEP 5, FiO2 30% Sedated on Propofol, Fentanyl On Precedex drip. SBT/KIA. CPAP in the AM. Continue bronchodilators/Pulmicort. Continue antibiotics. Continue steroids Monitor hemoglobin Tube feeds for nutritional support Protonix for GI prophylaxis Monitor renal function Monitor electrolytes. Supplement as necessary. CXR reviewed, lungs appear relatively clear without focal airspace opacity, effusion, or pneumothorax. Labs and imaging reviewed. Rest of plan as noted below. Plan: s/p intubation on mechanical ventilator. On AC mode; RR 22, VT 450, PEEP 5, FiO2 30% Titrate FIO2 to keep O2 saturation between 88-94%. Chronic CO2 retainer VAP bundle. Daily ABG and CXR while intubated Sedate for ventilator synchrony Continue bronchodilators. Continue antibiotics. Continue steroids Pressors as necessary for hemodynamic support Titrate to keep mean arterial pressure greater than 65 mmHg. Monitor renal function Monitor electrolytes. Supplement as necessary. Monitor ins and outs. Diet and lifestyle modifications for weight reduction Obesity - complicates all care GI prophylaxis. DVT prophylaxis. Prognosis: Poor given patient's multiple co-morbidities. Condition: Critical Rest of plan per hospitalist and other consultants. A total of 35 minutes of critical care time was spent reviewing the patient record, examining the patient, making a diagnostic and therapeutic plan, discussing this plan with the medical personnel, following up on diagnostic studies and following the patient for clinical stability excluding any and all procedures. At least 50% of this time was spent in direct, [id number] contact. Thank you, Dr. Barajas, for allowing me to participate in this patient's care. Further recommendations will depend on the patient's clinical course. Please do not hesitate to contact me if you have any questions or concerns. This medical document was created using an electronic medical record system with [employer] dictation system. Although these documentations are being carefully reviewed, there may still be some phonetic and typographical changes. The errors are purely typographical, due to imperfection on the software program, and do not reflect any compromise in the patient's medical care. Dietary Evaluation Review Recommendations by RD: PPN/TPN Comments: 1) If GI route is preferred, consider Jevity 1.2 @ 45 mL/hr goal rate as tolerated. Flush with 200 mL free H2O Q6. Goal rate will provide 1296 kcals, 60g Pro, and 1672 mL H2O (including flushes) per 24 hrs. Goal rate will provide ~ 100% of daily estimated energy requirements and 82% daily estimated protein requirements. 2) Initiate Kyle @ 1 pk bid 3) If patient remains NPO for more than 7 days, consider TPN to meet at least 75% of estimated needs 4) Advance patient diet when medically feasible to cardiac diet 5) Refer to outpatient RD for weight management 6) F/u with pulmonology and cardiology Expected Outcomes/Goals: 1) patient to receive nutrition within 7 days 2) labs and wound to improve 3) diet to advance 4) f/u in 3 days Plan discussed with: Other (DORY Horner) Critical Care Time(min): 35 LOGAN NAVARRO MD Dec 11, 2024 23:39
[2024-12-12] VITALS (101 sets, daily range): BP systolic 87–163; BP diastolic 43–76; PULSE 60–137; RESP 12–30; TEMP 98–99.4; O2SAT 89–100
[2024-12-12 03:50] LABS: Basophils # (auto) 0 10 ^3/uL (0-0.2); Basophils % (auto) 0.1 % (0.0-2.0); Eosinophils # (auto) 0 10 ^3/uL (0-0.8); Hematocrit 26.4 % (36.0-46.0); Hemoglobin 8.5 g/dL (12.2-16.2); Lymphocytes # (auto) 0.3 10 ^3/uL (0.4-5.4); Lymphocytes % (auto) 2.7 % (10.0-50.0); Mean Corpuscular Hemoglobin 27.7 pg (28.0-32.0); Mean Corpuscular Hgb Conc. 32.1 g/dL (32.0-36.0); Mean Corpuscular Volume 86.4 fL (80.0-100.0); Monocytes # (auto) 0.6 10 ^3/uL (0-1.3); Monocytes % (auto) 5.4 % (0.0-12.0); Neutrophils # (auto) 10.2 10 ^3/uL (1.6-8.6); Neutrophils % (auto) 91.8 % (37.0-80.0); Nucleated Red Blood Cells % 0.1 %; Platelet Count (auto) 207 10^3/uL (140-450); Red Blood Cells 3.06 10^6/uL (4.0-5.20); Red Cell Distribution Width 18.4 % (11.8-14.3); White Blood Cell 11.1 10^3/uL (4.4-10.8)
[2024-12-12 04:08] LABS: Alanine Aminotransferase 27 U/L (7-40); Albumin 3.8 g/dL (3.2-4.8); Anion Gap 9 (5-15); Aspartate Aminotransferase 20 U/L (13-40); Calcium 10.2 mg/dL (8.7-10.4); Carbon Dioxide 28 mmol/L (20-31); Chloride 106 mmol/L (98-107); Magnesium 2.3 mg/dL (1.6-2.6); Potassium 3.8 mmol/L (3.5-5.1); Sodium 143 mmol/L (136-145); Total Protein 6.3 g/dL (5.7-8.2)
[2024-12-12 04:09] LABS: Alkaline Phosphatase 43 U/L (46-116); Bilirubin, Total 0.3 mg/dL (0.2-1.0); Glucose 117 mg/dL (74-106)
[2024-12-12 04:14] LABS: BUN/Creatinine Ratio 37.2 (10.0-20.0)
[2024-12-12 04:16] LABS: Blood Urea Nitrogen 29 mg/dL (9-23)
--- NOTE | 2024-12-12 04:35 | DVH ---
CHEST RADIOGRAPH Indication: INTUBATED Technique: Single frontal view of the chest was obtained Comparison: XY CHEST PORTABLE on DOS: 12/11/24 FINDINGS: Lines and Tubes: The endotracheal tube terminates 2.6 cm above the kaykay. Right PICC terminates in t he superior vena cava. Lungs: Bilateral interstitial opacities. No focal consolidation. Pleura: No effusion. No pneumothorax. Cardiomediastinal contours: Unremarkable Bones: No acute osseous abnormality. IMPRESSION: 1. Bilateral interstitial opacities which may reflect pulmonary congestion.
[2024-12-12 07:03] LABS: Base Excess 2.8 mmol/L (-2.0-3.0)
--- NOTE | 2024-12-12 20:12 | DVHPNRES ---
Progress Note Date Seen: Dec 12, 2024 Resident Creating Document: LETICIA KLEIN RESIDENT Has the PT tested + for MRSA If YES, has PT been informed?: No Medical Necessity Reason Pt with a Central, PICC or Fol: Yes The following are medically ne: PICC Line, Palacios Catheter Reason for palacios catheter: Strict I&O, Total Immobilization Subjective Review of Systems HPI-patient is 64-year-old female patient with past medical history of COPD, heart failure, asthma, anxiety, depression, panic attacks, psoriasis , patient was brought to the hospital on December 01 with a chief complaint of shortness of breaths for the past 5 days before admission, she was started on breathing treatments, at the time BS was noted to be on 190s and patient was lethargic, tachypneic and tachycardic, per family patient had flu symptoms a couple of days prior to admission, ABG at that time showed marked respiratory acidosis with pCO2 on the 170s, in the ER they decided for intubation. Laboratory results showed leukocytosis, anemia with a hemoglobin at 9 and BNP in the 40s, the patient was started antibiotics and echocardiogram was ordered (60% ejection fraction), regarding other medications on admission patient received med neb, hydrocortisone, cefepime and vancomycin other than the pressors and sedative drips. CXR on 12/01/[address] abdomen revealed-1. There is no acute process in the abdomen and pelvis.2. Moderate amount of stool in the colon. On 12/01/2024 no acute intracranial process. CT angio on . No pulmonary embolism.2. Mild patchy airspace disease in the lung bases. Infectious/inflammatory process is not excluded. Septal thickening suggest fluid overload. Mediastinal and hilar lymphadenopathy. Clinical correlation and continued follow-up is recommended. Extremity arterial Doppler on 12/09/2024-Nonspecific mild elevation in velocities of the right brachial artery, right ulnar artery, left axillary artery and left brachial artery. Multiphasic arterial waveforms are present. extremity Doppler on 12/09/2024 negative for DVT. Culture on 12/02/2024 grew Enterococcus faecium. Blood culture negative for any growth. MRSA screening negative. Respiratory culture negative for any growth. ECHO 2D on 12/02/2024 revealed LVEF 60%, mild TR, impaired diastolic relaxation, counseling LVH. Mild left atrial enlargement, RVH. 12/12/2024- Patient was seen today for clinical evaluation. Labs and charts reviewed. Patient has ongoing leukocytosis with WBC 11.1 today, hemoglobin stable with a 8.5 today, no electrolyte imbalance noted today. CPAP trial was done today in the morning. But patient was agitated tried to pull out the tube, patient developed tachycardia, tachypnea, elevated blood pressure up to 160. Patient was put back on mechanical ventilator. Plan is to do a CPAP trial tomorrow morning. We will continue with the drips with titration as needed Provider called and spoke to Stacy,-[phone], answered her question and infarct patient's current medical condition and plan of care. Objective vital signs Vital Sign Date Time Temp Pulse Resp B/P (MAP) Pulse Ox O2 Delivery O2 Flow Rate FiO2 12/12/24 18:15 90 22 148/69 (95) 99 12/12/24 18:10 Mechanical Ventilator+ 30 30 12/12/24 18:00 98.5 98.5 Total Intake and Output 12/11/24 12/11/24 12/12/24 15:00 23:00 07:00 Intake Total 719.990 ml 345.205 ml 774.585 ml Output Total 1400 ml 880 ml Balance 719.990 ml -1054.795 ml -105.415 ml medications Current Medications Medications Dose Ordered Sig/Oswaldo Route Start Time Stop Time Status Last Admin Dose Admin Midazolam HCl 50 ml @ 1 mls/hr Q24H IV 12/01/24 13:00 12/08/24 17:36 5 MLS/HR Fentanyl Citrate 250 ml @ 2.5 mls/hr Q24H IV 12/01/24 14:30 12/12/24 16:44 15 MLS/HR Norepinephrine Bitartrate 250 ml @ 3.75 mls/hr Q24H IV 12/01/24 18:15 12/04/24 12:00 3.75 MLS/HR Propofol 100 ml @ 2.73 mls/hr Q24H IV 12/01/24 20:00 12/12/24 15:15 19.11 MLS/HR Acetaminophen 650 mg Q6HP PRN PO 12/01/24 22:30 12/01/24 23:34 650 MG Pantoprazole Sodium 40 mg DAILY IV 12/01/24 22:45 12/12/24 10:12 40 MG Ipratropium [place] 0.5 mg Q4HWA NEB 12/03/24 06:00 12/12/24 18:09 0.5 MG Albuterol 2.5 mg Q4HWA NEB 12/03/24 06:00 12/12/24 18:09 2.5 MG Albuterol 2.5 mg Q3HPRN PRN NEB 12/03/24 01:15 12/06/24 01:57 2.5 MG Polyethylene Glycol 17 gm DAILY PO 12/04/24 10:00 12/07/24 09:20 17 GM Sennosides 17.2 mg HS PO 12/03/24 22:00 12/09/24 22:50 17.2 MG Dexmedetomidine HCl 400 mcg/ Dextrose 100 ml @ 4.55 mls/hr [id number] IV 12/05/24 13:30 12/12/24 11:44 11.375 MLS/HR Linezolid 300 ml @ 150 mls/hr Q12HR IV 12/06/24 22:00 12/12/24 10:12 150 MLS/HR Hydralazine HCl 10 mg Q6HP PRN IV 12/06/24 20:30 12/12/24 00:22 10 MG Budesonide 0.5 mg BID NEB 12/07/24 10:00 12/12/24 18:09 0.5 MG Ondansetron HCl 4 mg Q6HPRN PRN IV 12/07/24 11:45 12/07/24 11:35 4 MG Enteral Nutritional Formula 1,000 ml 35ML/HR GT 12/07/24 14:00 12/10/24 22:18 1,000 ML Methylprednisolone Sodium Succinate 40 mg Q8HR IV 12/07/24 22:00 12/12/24 15:11 40 MG Cefepime HCl 50 ml @ 12.5 mls/hr Q8HR IV 12/07/24 22:00 12/12/24 15:11 12.5 MLS/HR Sodium Chloride 10 ml QSHIFT@10,22 IV 12/08/24 22:00 12/12/24 10:12 10 ML Furosemide 20 mg BIDD IV 12/09/24 18:05 12/12/24 17:58 20 MG Examination Neurology: Sedated on mechanical ventilation . Respiratory: Bilateral lung crackles+, wheezing+ Cardiovascular: Regular rate, Normal S1, Normal S2 Abdominal: hyperactive bowel sounds, abdomen distended, open wound in lower abdomen. Extremities: No cyanosis, No edema, Normal pulses Skin: Lower extremity plaque psoriasis, red patches with silvery scales.open wound in and sacrum and left buttock.no purulent fluid draining. laboratory and microbiology Laboratory Tests 12/12/24 03:00 Test 12/12/24 03:00 Range/Units Serum Glucose 117 H 74-106 mg/dL Microbiology Date/Time Source Procedure Growth Status 12/02/24 16:30 Nose MRSA Screen - Final Complete 12/01/24 13:20 Blood Blood Culture - Final NO GROWTH AFTER 5 DAYS OF INCUBATION. Complete 12/01/24 12:58 Sputum Gram Stain - Final Complete 12/01/24 12:58 Sputum Respiratory Culture - Final Complete Problem List/Assessment/Plan Problem List/Assessment/Plan Neurology #sedated under mechanical ventilation -failed CPAP trial today - head ct negative - CPAP trial for tomorrow AM Cardiovascular # Septic shock # Possible acute on chronic diastolic heart failure 60% EF # Aortic atherosclerosis # Hypertension # Mild tricuspid regurgitation # Mild aortic root enlargement. # Left atrial enlargement - not on pressors - Lasix 20 mEq BID IV Respiratory # Acute hypercapnic respiratory failure with COPD exacerbation due to Gram-positive/Gram-negative bacterial pneumonia # Pulmonary vascular congestion # COPD exacerbation # Respiratory acidosis,resolved - On mechanical ventilation - Lasix 20 mg BID - Methylprednisolone 40 mg IV TID - Albuterol neb - Ipratropium neb GI #Acute abdominal distention likely due to constipation -status post Manual disimpaction -patient removed NG tube -Lactulose 30cc BID /renal #hypokalemia-replenished #Dehydration # high BUN/Cr ratio #Palacios catheter since 12/01 #Uterine fibroids #Infectious disease # Septic shock likely due to Gram-positive/Gram-negative bacterial pneumonia # Skin abscess positive for E.Faecium - Linezolid 600 mg Q12 - Cefepime Q8h Heme/Onc Normocytic normochromic anemia Endocrine #type 1 obesity #metabolic syndrome Skin: #Skin psoriasis #skin abscess likely due to Hydradenitis suppurativa Christina II/III - wound culture positive for E.Faecium - iv antibiotics (linezolid and cefepime) - wound care - surgery on board -no surgical intervention at this moment as per surgery GI prophylaxis -IV pantoprazole 40mg daily DVT prophylaxis - SCD Drips: fentanyl Propofol Precedex lines Central line placed on right internal jugular vein on 12/01/24 dc on 12/08/24 PICC line right upper arm on 12/08/24 Palacios catheter since 12/01 Periphereal line 12/[address] ET- since 12/01/2024 Goals of care/advance care planning Code status, full code PUD prophylaxis: Pantoprazole DVT prophylaxis: SCD Plan discussed with Dr. Campos , nursing staff, patient Total critical time spent on patient evaluation, chart review, assessment and plan, discussion and cpap trial was 81 mins Plan discussed with: Patient, Daughter, Other (RN,) Dietary Evaluation Review Recommendations by RD: PPN/TPN Comments: 1) If GI route is preferred, consider Jevity 1.2 @ 45 mL/hr goal rate as tolerated. Flush with 200 mL free H2O Q6. Goal rate will provide 1296 kcals, 60g Pro, and 1672 mL H2O (including flushes) per 24 hrs. Goal rate will provide ~ 100% of daily estimated energy requirements and 82% daily estimated protein requirements. 2) Initiate Kyle @ 1 pk bid 3) If patient remains NPO for more than 7 days, consider TPN to meet at least 75% of estimated needs 4) Advance patient diet when medically feasible to cardiac diet 5) Refer to outpatient RD for weight management 6) F/u with pulmonology and cardiology Expected Outcomes/Goals: 1) patient to receive nutrition within 7 days 2) labs and wound to improve 3) diet to advance 4) f/u in 3 days Date of Service: Dec 12, 2024 Billing Provider: TIMOTEO CAMPOS MD Common Visit Codes: 37530-VYCYVDXM CARE 30-74 MIN, 05241-[id number] CARE-EACH +30MIN LETICIA KLEIN RESIDENT Dec 12, 2024 20:11 TIMOTEO CAMPOS MD Dec 13, 2024 15:16
[2024-12-13] VITALS (105 sets, daily range): BP systolic 119–175; BP diastolic 55–90; PULSE 74–132; RESP 11–34; TEMP 97.8–99.3; O2SAT 85–100
[2024-12-13] MEDS: DEXMEDETOMIDINE IV ONE (01:44)
[2024-12-13 03:40] LABS: Anion Gap 10 (5-15); Basophils # (auto) 0 10 ^3/uL (0-0.2); Carbon Dioxide 27 mmol/L (20-31); Chloride 104 mmol/L (98-107); Eosinophils # (auto) 0 10 ^3/uL (0-0.8); Hematocrit 30.2 % (36.0-46.0); Hemoglobin 9.4 g/dL (12.2-16.2); Lymphocytes # (auto) 0.9 10 ^3/uL (0.4-5.4); Lymphocytes % (auto) 5.3 % (10.0-50.0); Mean Corpuscular Hemoglobin 27.3 pg (28.0-32.0); Mean Corpuscular Hgb Conc. 31.3 g/dL (32.0-36.0); Mean Corpuscular Volume 87.4 fL (80.0-100.0); Monocytes # (auto) 0.9 10 ^3/uL (0-1.3); Monocytes % (auto) 5.3 % (0.0-12.0); Neutrophils # (auto) 14.7 10 ^3/uL (1.6-8.6); Neutrophils % (auto) 89.4 % (37.0-80.0); Platelet Count (auto) 272 10^3/uL (140-450); Potassium 3.6 mmol/L (3.5-5.1); Red Blood Cells 3.46 10^6/uL (4.0-5.20); Red Cell Distribution Width 18.7 % (11.8-14.3); Sodium 141 mmol/L (136-145); White Blood Cell 16.4 10^3/uL (4.4-10.8)
[2024-12-13 03:46] LABS: BUN/Creatinine Ratio 34.2 (10.0-20.0)
[2024-12-13 03:47] LABS: Magnesium 2.4 mg/dL (1.6-2.6)
[2024-12-13 03:56] LABS: Blood Urea Nitrogen 27 mg/dL (9-23); Calcium 10.6 mg/dL (8.7-10.4); Glucose 129 mg/dL (74-106)
--- NOTE | 2024-12-13 05:11 | DVH ---
EXAM: XR Chest, 1 View CLINICAL INDICATION: PNA TECHNIQUE: Frontal view of the chest. COMPARISON: XY CHEST XRAY 1 VIEW on DOS: 12/12/24, XY CHEST PORTABLE on DOS: 12/11/24, XY CHEST PORTAB LE on DOS: 12/10/24, XY CHEST PORTABLE on DOS: 12/09/24, XY CHEST PORTABLE on DOS: 12/08/24 FINDINGS: LUNGS AND PLEURAL SPACES: Mild pulmonary congestion. No consolidation. No pneumothorax. HEART: Unremarkable. No cardiomegaly. MEDIASTINUM: Unremarkable. Normal mediastinal contour. BONES/JOINTS: Unremarkable. No acute fracture. TUBES, LINES AND DEVICES: Right peripherally inserted central catheter (PICC) tip in the superior v risa cava. The endotracheal tube (ETT) is in satisfactory position. OTHER FINDINGS: . IMPRESSION: Mild pulmonary congestion.
--- NOTE | 2024-12-13 08:30 | DVHPNRES ---
Progress Note Date Seen: Dec 13, 2024 Resident Creating Document: LETICIA KLEIN RESIDENT Has the PT tested + for MRSA If YES, has PT been informed?: No Medical Necessity Reason Pt with a Central, PICC or Fol: Yes The following are medically ne: PICC Line, Palacios Catheter Reason for palacios catheter: Strict I&O, Total Immobilization Subjective Review of Systems HPI-patient is 64-year-old female patient with past medical history of COPD, heart failure, asthma, anxiety, depression, panic attacks, psoriasis , patient was brought to the hospital on December 01 with a chief complaint of shortness of breaths for the past 5 days before admission, she was started on breathing treatments, at the time BS was noted to be on 190s and patient was lethargic, tachypneic and tachycardic, per family patient had flu symptoms a couple of days prior to admission, ABG at that time showed marked respiratory acidosis with pCO2 on the 170s, in the ER they decided for intubation. Laboratory results showed leukocytosis, anemia with a hemoglobin at 9 and BNP in the 40s, the patient was started antibiotics and echocardiogram was ordered (60% ejection fraction), regarding other medications on admission patient received med neb, hydrocortisone, cefepime and vancomycin other than the pressors and sedative drips. CXR on 12/01/[address] abdomen revealed-1. There is no acute process in the abdomen and pelvis.2. Moderate amount of stool in the colon. On 12/01/2024 no acute intracranial process. CT angio on . No pulmonary embolism.2. Mild patchy airspace disease in the lung bases. Infectious/inflammatory process is not excluded. Septal thickening suggest fluid overload. Mediastinal and hilar lymphadenopathy. Clinical correlation and continued follow-up is recommended. Extremity arterial Doppler on 12/09/2024-Nonspecific mild elevation in velocities of the right brachial artery, right ulnar artery, left axillary artery and left brachial artery. Multiphasic arterial waveforms are present. extremity Doppler on 12/09/2024 negative for DVT. Culture on 12/02/2024 grew Enterococcus faecium. Blood culture negative for any growth. MRSA screening negative. Respiratory culture negative for any growth. ECHO 2D on 12/02/2024 revealed LVEF 60%, mild TR, impaired diastolic relaxation, counseling LVH. Mild left atrial enlargement, RVH. 12/13/2024- Patient was seen today for clinical evaluation. Labs and charts reviewed. Patient's WBC trending up today with WBC 16.4 Chest x-ray looks better than yesterday After successful CPAP trial patient was extubated at 10:25 a.m.. Discontinued propofol, fentanyl, Precedex Patient was put on BiPAP as Breeze and tolerated well, later on patient was put on mask, Ordered Ativan 1 mg q.6h IV p.r.n. Patient had negative IO balance around 1634 No rhonchi today, less bilateral basal lung crackles today Wound on the sacral area and also in the right lower abdominal Fold healing well so far Provider called and spoke to Stacy, for [phone], answered her question and infarct patient's current medical condition and plan of care. Objective vital signs Vital Sign Date Time Temp Pulse Resp B/P (MAP) Pulse Ox O2 Delivery O2 Flow Rate FiO2 12/13/24 07:45 94 16 153/72 (99) 97 30 12/13/24 07:30 99.3 99.3 12/12/24 20:00 Mechanical Ventilator+ Total Intake and Output 12/12/24 12/12/24 12/13/24 15:00 23:00 07:00 Intake Total 572.235 ml 652.67 ml 168.45 ml Output Total 1250 ml 1800 ml Balance 572.235 ml -597.33 ml -1631.55 ml medications Current Medications Medications Dose Ordered Sig/Oswaldo Route Start Time Stop Time Status Last Admin Dose Admin Midazolam HCl 50 ml @ 1 mls/hr Q24H IV 12/01/24 13:00 12/08/24 17:36 5 MLS/HR Fentanyl Citrate 250 ml @ 2.5 mls/hr Q24H IV 12/01/24 14:30 12/12/24 16:44 15 MLS/HR Norepinephrine Bitartrate 250 ml @ 3.75 mls/hr Q24H IV 12/01/24 18:15 12/04/24 12:00 3.75 MLS/HR Propofol 100 ml @ 2.73 mls/hr Q24H IV 12/01/24 20:00 12/13/24 01:48 16.38 MLS/HR Acetaminophen 650 mg Q6HP PRN PO 12/01/24 22:30 2/27/25 23:34 650 MG Pantoprazole Sodium 40 mg DAILY IV 12/01/24 22:45 12/12/24 10:12 40 MG Ipratropium [place] 0.5 mg Q4HWA NEB 12/03/24 06:00 12/13/24 06:03 0.5 MG Albuterol 2.5 mg Q4HWA NEB 12/03/24 06:00 12/13/24 06:03 2.5 MG Albuterol 2.5 mg Q3HPRN PRN NEB 12/03/24 01:15 12/06/24 01:57 2.5 MG Polyethylene Glycol 17 gm DAILY PO 12/04/24 10:00 12/07/24 09:20 17 GM Sennosides 17.2 mg HS PO 12/03/24 22:00 12/09/24 22:50 17.2 MG Dexmedetomidine HCl 400 mcg/ Dextrose 100 ml @ 4.55 mls/hr [id number] IV 12/05/24 13:30 12/13/24 06:36 6.825 MLS/HR Linezolid 300 ml @ 150 mls/hr Q12HR IV 12/06/24 22:00 12/12/24 21:28 150 MLS/HR Hydralazine HCl 10 mg Q6HP PRN IV 12/06/24 20:30 12/12/24 00:22 10 MG Budesonide 0.5 mg BID NEB 12/07/24 10:00 12/12/24 18:09 0.5 MG Ondansetron HCl 4 mg Q6HPRN PRN IV 12/07/24 11:45 12/07/24 11:35 4 MG Enteral Nutritional Formula 1,000 ml 35ML/HR GT 12/07/24 14:00 12/10/24 22:18 1,000 ML Methylprednisolone Sodium Succinate 40 mg Q8HR IV 12/07/24 22:00 12/13/24 05:51 40 MG Cefepime HCl 50 ml @ 12.5 mls/hr Q8HR IV 12/07/24 22:00 12/13/24 05:48 12.5 MLS/HR Sodium Chloride 10 ml QSHIFT@10,22 IV 12/08/24 22:00 12/12/24 21:31 10 ML Furosemide 20 mg BIDD IV 12/09/24 18:05 12/13/24 05:51 20 MG Examination Neurology: Sedated on mechanical ventilation . Respiratory: Bilateral lung crackles+, wheezing+ Cardiovascular: Regular rate, Normal S1, Normal S2 Abdominal: hyperactive bowel sounds, abdomen distended, open wound in lower abdomen. Extremities: No cyanosis, No edema, Normal pulses Skin: Lower extremity plaque psoriasis, red patches with silvery scales.open wound in and sacrum and left buttock.no purulent fluid draining. laboratory and microbiology Laboratory Tests 12/13/24 03:00 Test 12/13/24 03:00 Range/Units Serum Glucose 129 H 74-106 mg/dL Microbiology Date/Time Source Procedure Growth Status 12/02/24 16:30 Nose MRSA Screen - Final Complete 12/01/24 13:20 Blood Blood Culture - Final NO GROWTH AFTER 5 DAYS OF INCUBATION. Complete 12/01/24 12:58 Sputum Gram Stain - Final Complete 12/01/24 12:58 Sputum Respiratory Culture - Final Complete Problem List/Assessment/Plan Problem List/Assessment/Plan Neurology # acute metabolic encephalopathy likely due to acute hypoxic respiratory failure/sepsis # status post sedation # status post mechanical ventilation -patient was extubated today on 12/13/24 -following extubation patient was put on BiPAP breeze, tolerated well, following that patient was put on mask and saturating well -DCed all drips Cardiovascular # Septic shock # Possible acute on chronic diastolic heart failure 60% EF # Aortic atherosclerosis # Hypertension # Mild tricuspid regurgitation # Mild aortic root enlargement. # Left atrial enlargement - not on pressors - Lasix 20 mEq BID IV Respiratory # Acute hypercapnic respiratory failure likely due to COPD exacerbation due to Gram-positive/Gram-negative bacterial pneumonia # Pulmonary vascular congestion # COPD exacerbation # Respiratory acidosis,resolved - status post mechanical ventilation - Lasix 20 mg BID - Methylprednisolone 40 mg IV TID - Albuterol neb - Ipratropium neb GI #Acute abdominal distention likely due to constipation -status post Manual disimpaction Plan is to do a swallow evaluation today -Lactulose 30cc BID /renal #hypokalemia-replenished #Dehydration # high BUN/Cr ratio #Palacios catheter since 12/01 #Uterine fibroids #Infectious disease # Septic shock likely due to Gram-positive/Gram-negative bacterial pneumonia # Skin abscess positive for E.Faecium - Linezolid 600 mg Q12 - Cefepime Q8h Heme/Onc Normocytic normochromic anemia Endocrine #type 1 obesity #metabolic syndrome Skin: #Skin psoriasis #skin abscess likely due to Hydradenitis suppurativa Avsquez II/III - wound culture positive for E.Faecium - iv antibiotics (linezolid and cefepime) - wound care - surgery on board -no surgical intervention at this moment as per surgery GI prophylaxis -IV pantoprazole 40mg daily DVT prophylaxis - SCD Drips: disontinued all drips on 12/13/2024 lines Central line placed on right internal jugular vein on 12/01/24 dc on 12/08/24 PICC line right upper arm on 12/08/24 Palacios catheter since 12/01 Periphereal line 12/[address] ET- since 12/01/2024 Goals of care/advance care planning Code status, full code PUD prophylaxis: Pantoprazole DVT prophylaxis: SCD Plan discussed with Dr. Campos, nursing staff, patient's daughter Total critical time spent on patient evaluation, chart review, assessment and plan , critical care time to include monitoring during mechanical ventilation, extubation, monitoring BiPAP was 82 mins Plan discussed with: Daughter (RN), Other (RN) My Orders My Orders Orders - LETICIA KLEIN RESIDENT Procedure Category Date Status Time Abg W/ Co-Ox RT 12/13/24 Logged 07:00 Chest Portable XY 12/13/24 Resulted 06:00 Dietary Evaluation Review Recommendations by RD: PPN/TPN Comments: 1) If GI route is preferred, consider Jevity 1.2 @ 45 mL/hr goal rate as tolerated. Flush with 200 mL free H2O Q6. Goal rate will provide 1296 kcals, 60g Pro, and 1672 mL H2O (including flushes) per 24 hrs. Goal rate will provide ~ 100% of daily estimated energy requirements and 82% daily estimated protein requirements. 2) Initiate Kyle @ 1 pk bid 3) If patient remains NPO for more than 7 days, consider TPN to meet at least 75% of estimated needs 4) Advance patient diet when medically feasible to cardiac diet 5) Refer to outpatient RD for weight management 6) F/u with pulmonology and cardiology Expected Outcomes/Goals: 1) patient to receive nutrition within 7 days 2) labs and wound to improve 3) diet to advance 4) f/u in 3 days Date of Service: Dec 13, 2024 Billing Provider: TIMOTEO CAMPOS MD Common Visit Codes: 76823-[id number] CARE 30-74 MIN, [id number] CARE-EACH +30MIN LETICIA KLEIN RESIDENT Dec 13, 2024 08:30 TIMOTEO CAMPOS MD Dec 14, 2024 16:23
[2024-12-13] MEDS: LORazepam 2MG/ML-1ML VIAL IV PRN (11:15)
[2024-12-13 12:07] LABS: Base Excess -1.5 mmol/L (-2.0-3.0)
--- NOTE | 2024-12-13 17:15 | DVH ---
EXAM: XY CHEST PORTABLE TECHNIQUE: Single frontal chest radiograph CLINICAL HISTORY: PNA,COPD COMPARISON: XY CHEST PORTABLE on DOS: 12/13/24, XY CHEST XRAY 1 VIEW on DOS: 12/12/24, XY CHEST PORTABL E on DOS: 12/11/24 Findings/Impression: Frontal chest radiograph demonstrates no acute osseous or superficial soft tissue abnormalities. Right upper extremity PICC terminates near the superior cavoatrial junction. Interval removal of the endotracheal tube. The trachea is midline. The cardiac silhouette and mediastinum are within normal limits. Mild pulmona ry vascular congestion, similar to prior. No pneumothorax, pleural effusions, or consolidations.
[2024-12-14] VITALS (89 sets, daily range): BP systolic 112–161; BP diastolic 46–96; PULSE 84–129; RESP 13–29; TEMP 98.3–99.3; O2SAT 82–100
[2024-12-14 03:56] LABS: Basophils # (auto) 0 10 ^3/uL (0-0.2); Eosinophils # (auto) 0 10 ^3/uL (0-0.8); Hematocrit 32.4 % (36.0-46.0); Hemoglobin 9.9 g/dL (12.2-16.2); Lymphocytes # (auto) 0.5 10 ^3/uL (0.4-5.4); Monocytes # (auto) 0.5 10 ^3/uL (0-1.3); Neutrophils % (auto) 94.1 % (37.0-80.0); Nucleated Red Blood Cells % 0.1 %
[2024-12-14 03:59] LABS: Basophils % (auto) 0.2 % (0.0-2.0); Lymphocytes % (auto) 2.7 % (10.0-50.0); Mean Corpuscular Hemoglobin 26.9 pg (28.0-32.0); Mean Corpuscular Hgb Conc. 30.6 g/dL (32.0-36.0); Mean Corpuscular Volume 87.9 fL (80.0-100.0); Neutrophils # (auto) 16.4 10 ^3/uL (1.6-8.6); Platelet Count (auto) 246 10^3/uL (140-450); Red Blood Cells 3.69 10^6/uL (4.0-5.20); Red Cell Distribution Width 18.9 % (11.8-14.3); White Blood Cell 17.5 10^3/uL (4.4-10.8)
[2024-12-14 04:00] LABS: Anion Gap 9 (5-15); Carbon Dioxide 29 mmol/L (20-31); Chloride 106 mmol/L (98-107); Sodium 144 mmol/L (136-145)
[2024-12-14 04:06] LABS: BUN/Creatinine Ratio 34.2 (10.0-20.0); Blood Urea Nitrogen 26 mg/dL (9-23); Calcium 10.6 mg/dL (8.7-10.4); Glucose 110 mg/dL (74-106); Magnesium 2.4 mg/dL (1.6-2.6); Potassium 3.5 mmol/L (3.5-5.1)
--- NOTE | 2024-12-14 08:44 | DVH ---
CHEST RADIOGRAPH Indication: COPD EXA, PNA Technique: Single frontal view of the chest was obtained COMPARISON: XY CHEST PORTABLE on DOS: 12/13/24, XY CHEST PORTABLE on DOS: 12/13/24, XY CHEST XRAY 1 VIE W on DOS: 12/12/24, XY CHEST PORTABLE on DOS: 12/11/24, XY CHEST PORTABLE on DOS: 12/10/24 FINDINGS: Lines and Tubes: Right PICC in satisfactory position. Lungs: Diffuse congestion. Pleura: No effusion. No pneumothorax. Cardiomediastinal contours: Unremarkable Bones: Unremarkable IMPRESSION: Mild increased interstitial prominence may represent mild pulmonary vascular congestion.
[2024-12-14] MEDS: methylPREDNISolone SOD SUCC 125 MG/2 ML VL IV SCH ×2 (15:30→21:38)
--- NOTE | 2024-12-14 17:34 | DVHPNRES ---
Progress Note Date Seen: Dec 14, 2024 Resident Creating Document: LETICIA KLEIN RESIDENT Has the PT tested + for MRSA If YES, has PT been informed?: No Medical Necessity Reason Pt with a Central, PICC or Fol: Yes The following are medically ne: PICC Line, Palacios Catheter Reason for palacios catheter: Strict I&O, Total Immobilization Subjective Review of Systems HPI-patient is 64-year-old female patient with past medical history of COPD, heart failure, asthma, anxiety, depression, panic attacks, psoriasis , patient was brought to the hospital on December 01 with a chief complaint of shortness of breaths for the past 5 days before admission, she was started on breathing treatments, at the time BS was noted to be on 190s and patient was lethargic, tachypneic and tachycardic, per family patient had flu symptoms a couple of days prior to admission, ABG at that time showed marked respiratory acidosis with pCO2 on the 170s, in the ER they decided for intubation. Laboratory results showed leukocytosis, anemia with a hemoglobin at 9 and BNP in the 40s, the patient was started antibiotics and echocardiogram was ordered (60% ejection fraction), regarding other medications on admission patient received med neb, hydrocortisone, cefepime and vancomycin other than the pressors and sedative drips. CXR on 12/01/[address] abdomen revealed-1. There is no acute process in the abdomen and pelvis.2. Moderate amount of stool in the colon. On 12/01/2024 no acute intracranial process. CT angio on . No pulmonary embolism.2. Mild patchy airspace disease in the lung bases. Infectious/inflammatory process is not excluded. Septal thickening suggest fluid overload. Mediastinal and hilar lymphadenopathy. Clinical correlation and continued follow-up is recommended. Extremity arterial Doppler on 12/09/2024-Nonspecific mild elevation in velocities of the right brachial artery, right ulnar artery, left axillary artery and left brachial artery. Multiphasic arterial waveforms are present. extremity Doppler on 12/09/2024 negative for DVT. Culture on 12/02/2024 grew Enterococcus faecium. Blood culture negative for any growth. MRSA screening negative. Respiratory culture negative for any growth. ECHO 2D on 12/02/2024 revealed LVEF 60%, mild TR, impaired diastolic relaxation, counseling LVH. Mild left atrial enlargement, RVH. 12/14/2024- Patient was seen today for clinical evaluation. Labs and charts reviewed. Patient's breathing has improved Chest x-ray looks better today Patient had negative IO balance around 2446 Patient was on NC O2 1 liter/minute and saturating above 90 Patient was seen by PT, patient's sat on the chair for 30 minutes Ordered potassium 20 mEq q.d. standing Decrease lorazepam from 12.5 mg IV q.6h p.r.n. Decreased methylprednisolone from 40 mg t.i.d. to 40 mg IV b.i.d. Decrease Lasix from 20 mg IV b.i.d. to 20 mg IV daily Order to transfer patient to telemetry in place Provider called and spoke to Stacy, for [phone], answered her question and infarct patient's current medical condition and plan of care. Plan is to discharge patient to SNF for physical therapy Objective vital signs Vital Sign Date Time Temp Pulse Resp B/P (MAP) Pulse Ox O2 Delivery O2 Flow Rate FiO2 12/14/24 17:00 112 19 126/59 (81) 91 12/14/24 16:00 Nasal Cannula* 2 28 12/14/24 14:00 98.4 98.4 Total Intake and Output 12/13/24 12/13/24 12/14/24 15:00 23:00 07:00 Intake Total 366.625 ml 50 ml Output Total 1450 ml 1450 ml Balance 366.625 ml -1400 ml -1450 ml medications Current Medications Medications Dose Ordered Sig/Oswaldo Route Start Time Stop Time Status Last Admin Dose Admin Acetaminophen 650 mg Q6HP PRN PO 12/01/24 22:30 12/01/24 23:34 650 MG Pantoprazole Sodium 40 mg DAILY IV 12/01/24 22:45 12/14/24 10:12 40 MG Ipratropium [place] 0.5 mg Q4HWA NEB 12/03/24 06:00 12/14/24 14:46 0.5 MG Albuterol 2.5 mg Q4HWA NEB 12/03/24 06:00 12/14/24 14:46 2.5 MG Albuterol 2.5 mg Q3HPRN PRN NEB 12/03/24 01:15 12/06/24 01:57 2.5 MG Polyethylene Glycol 17 gm DAILY PO 12/04/24 10:00 12/07/24 09:20 17 GM Sennosides 17.2 mg HS PO 12/03/24 22:00 12/09/24 22:50 17.2 MG Linezolid 300 ml @ 150 mls/hr Q12HR IV 12/06/24 22:00 12/14/24 10:13 150 MLS/HR Hydralazine HCl 10 mg Q6HP PRN IV 12/06/24 20:30 12/12/24 00:22 10 MG Budesonide 0.5 mg BID NEB 12/07/24 10:00 12/14/24 06:59 0.5 MG Ondansetron HCl 4 mg Q6HPRN PRN IV 12/07/24 11:45 12/14/24 06:06 4 MG Cefepime HCl 50 ml @ 12.5 mls/hr Q8HR IV 12/07/24 22:00 12/14/24 14:17 12.5 MLS/HR Sodium Chloride 10 ml QSHIFT@10,22 IV 12/08/24 22:00 12/14/24 10:13 10 ML Furosemide 20 mg DAILY IV 12/15/24 10:00 Methylprednisolone Sodium Succinate 40 mg BID IV 12/14/24 22:00 Lorazepam 0.5 mg Q6HP PRN IV 12/14/24 16:30 Potassium Chloride 20 meq DAILY PO 12/15/24 10:00 Examination Neurology: Patient is alert, oriented, conversant Respiratory: Bilateral lung crackles+, wheezing- Cardiovascular: Regular rate, Normal S1, Normal S2 Abdominal: hyperactive bowel sounds, abdomen distended, open wound in lower abdomen. Extremities: No cyanosis, No edema, Normal pulses Skin: Lower extremity plaque psoriasis, red patches with silvery scales.open wound in and sacrum and left buttock.no purulent fluid draining. laboratory and microbiology Laboratory Tests 12/14/24 03:00 Test 12/14/24 03:00 Range/Units Serum Glucose 110 H 74-106 mg/dL Microbiology Date/Time Source Procedure Growth Status 12/02/24 16:30 Nose MRSA Screen - Final Complete 12/01/24 13:20 Blood Blood Culture - Final NO GROWTH AFTER 5 DAYS OF INCUBATION. Complete 12/01/24 12:58 Sputum Gram Stain - Final Complete 12/01/24 12:58 Sputum Respiratory Culture - Final Complete Problem List/Assessment/Plan Problem List/Assessment/Plan Neurology # acute metabolic encephalopathy likely due to acute hypoxic respiratory failure/sepsis # status post sedation # status post mechanical ventilation -patient was extubated today on 12/13/24 #Anxiety, -following extubation patient was put on BiPAP breeze, tolerated well, following that patient was put on mask and saturating well -DCed all drips -Ativan 0.5 mg q.6h IV p.r.n. Cardiovascular # Septic shock # Possible acute on chronic diastolic heart failure 60% EF # Aortic atherosclerosis # Hypertension # Mild tricuspid regurgitation # Mild aortic root enlargement. # Left atrial enlargement - not on pressors - Lasix 20 mEq IV q.d. Respiratory # Acute hypercapnic respiratory failure likely due to COPD exacerbation due to Gram-positive/Gram-negative bacterial pneumonia # Pulmonary vascular congestion # COPD exacerbation # Respiratory acidosis,resolved - status post mechanical ventilation -Lasix 20 mg IV daily - Methylprednisolone 40 mg IV bid. - Albuterol neb - Ipratropium neb GI #Acute abdominal distention likely due to constipation -status post Manual disimpaction Plan is to do a swallow evaluation today -Lactulose 30cc BID /renal #hypokalemia-replenished #Dehydration # high BUN/Cr ratio #Palacios catheter since 12/01 #Uterine fibroids #Infectious disease # Septic shock likely due to Gram-positive/Gram-negative bacterial pneumonia # Skin abscess positive for E.Faecium - Linezolid 600 mg Q12 - Cefepime Q8h Heme/Onc Normocytic normochromic anemia Endocrine #type 1 obesity #metabolic syndrome Skin: #Skin psoriasis #skin abscess likely due to Hydradenitis suppurativa Vasquez II/III - wound culture positive for E.Faecium - iv antibiotics (linezolid and cefepime) - wound care - surgery on board -no surgical intervention at this moment as per surgery GI prophylaxis -IV pantoprazole 40mg daily DVT prophylaxis - SCD Drips: disontinued all drips on 12/13/2024 lines Central line placed on right internal jugular vein on 12/01/24 dc on 12/08/24 PICC line right upper arm on 12/08/24 Palacios catheter since 12/01 Periphereal line 12/[address] ET- since 12/01/2024 Goals of care/advance care planning Code status, full code PUD prophylaxis: Pantoprazole DVT prophylaxis: SCD Plan discussed with Dr. Campos, nursing staff, patient's daughter Total critical time spent on patient evaluation, chart review, assessment and plan , critical care time was 64 mins Plan discussed with: Patient, Daughter, Other (RN) My Orders My Orders Orders - LETICIA KLEIN Procedure Category Date Status Time * Swallow Request ST 12/14/24 Transmitted 06:37 Pt Request For Service PT 12/14/24 Logged 06:42 Chest Portable XY 12/14/24 Resulted 06:45 Mechanical Soft Diet DIET 12/14/24 Transmitted Lunch Lorazepam 2mg/Ml Inj PHA 12/14/24 In Process (Ativan Inj) 16:30 Potassium Er Tablet PHA 12/15/24 In Process (Klor-Con Tablet) 10:00 Transfer Orders XFER 12/14/24 Transmitted 16:30 Dietary Evaluation Review Recommendations by RD: PPN/TPN Comments: 1) If GI route is preferred, consider Jevity 1.2 @ 45 mL/hr goal rate as tolerated. Flush with 200 mL free H2O Q6. Goal rate will provide 1296 kcals, 60g Pro, and 1672 mL H2O (including flushes) per 24 hrs. Goal rate will provide ~ 100% of daily estimated energy requirements and 82% daily estimated protein requirements. 2) Initiate Kyle @ 1 pk bid 3) If patient remains NPO for more than 7 days, consider TPN to meet at least 75% of estimated needs 4) Advance patient diet when medically feasible to cardiac diet 5) Refer to outpatient RD for weight management 6) F/u with pulmonology and cardiology Expected Outcomes/Goals: 1) patient to receive nutrition within 7 days 2) labs and wound to improve 3) diet to advance 4) f/u in 3 days Date of Service: Dec 14, 2024 Billing Provider: TIMOTEO CAMPOS MD Common Visit Codes: [id number] CARE 30-74 MIN LETICIA KLEIN Dec 14, 2024 17:34 TIMOTEO CAMPOS MD Dec 15, 2024 11:53
[2024-12-14] MEDS: POTASSIUM CHL 20 Meq TABLET PO ONE (18:01)
[2024-12-14] MEDS: LORazepam 2MG/ML-1ML VIAL IV PRN (19:57)
[2024-12-15] VITALS (25 sets, daily range): BP systolic 127–154; BP diastolic 52–65; PULSE 83–116; RESP 16–21; TEMP 97.1–98.9; O2SAT 92–100
[2024-12-15 04:09] LABS: Basophils # (auto) 0 10 ^3/uL (0-0.2); Eosinophils # (auto) 0 10 ^3/uL (0-0.8); Hematocrit 32.7 % (36.0-46.0); Lymphocytes # (auto) 0.4 10 ^3/uL (0.4-5.4); Monocytes # (auto) 0.5 10 ^3/uL (0-1.3)
[2024-12-15 04:11] LABS: Hemoglobin 9.9 g/dL (12.2-16.2); Lymphocytes % (auto) 2.4 % (10.0-50.0); Mean Corpuscular Hemoglobin 26.9 pg (28.0-32.0); Mean Corpuscular Hgb Conc. 30.3 g/dL (32.0-36.0); Mean Corpuscular Volume 88.9 fL (80.0-100.0); Monocytes % (auto) 3.1 % (0.0-12.0); Neutrophils # (auto) 15.4 10 ^3/uL (1.6-8.6); Neutrophils % (auto) 94.5 % (37.0-80.0); Nucleated Red Blood Cells % 0.2 %; Platelet Count (auto) 190 10^3/uL (140-450); Red Blood Cells 3.67 10^6/uL (4.0-5.20); Red Cell Distribution Width 18.5 % (11.8-14.3); White Blood Cell 16.3 10^3/uL (4.4-10.8)
[2024-12-15 04:34] LABS: Anion Gap 6 (5-15); Sodium 145 mmol/L (136-145)
[2024-12-15 04:40] LABS: BUN/Creatinine Ratio 37.8 (10.0-20.0); Magnesium 2.5 mg/dL (1.6-2.6)
[2024-12-15 04:41] LABS: Blood Urea Nitrogen 28 mg/dL (9-23); Calcium 10.8 mg/dL (8.7-10.4); Carbon Dioxide 32 mmol/L (20-31); Chloride 107 mmol/L (98-107); Glucose 131 mg/dL (74-106)
--- NOTE | 2024-12-15 09:14 | DVHPNRES ---
Progress Note Date Seen: Dec 15, 2024 Resident Creating Document: LETICIA KLEIN RESIDENT Has the PT tested + for MRSA If YES, has PT been informed?: No Medical Necessity Reason Pt with a Central, PICC or Fol: Yes The following are medically ne: PICC Line, Palacios Catheter Reason for palacios catheter: Strict I&O, Total Immobilization Subjective Review of Systems HPI-patient is 64-year-old female patient with past medical history of COPD, heart failure, asthma, anxiety, depression, panic attacks, psoriasis , patient was brought to the hospital on December 01 with a chief complaint of shortness of breaths for the past 5 days before admission, she was started on breathing treatments, at the time BS was noted to be on 190s and patient was lethargic, tachypneic and tachycardic, per family patient had flu symptoms a couple of days prior to admission, ABG at that time showed marked respiratory acidosis with pCO2 on the 170s, in the ER they decided for intubation. Laboratory results showed leukocytosis, anemia with a hemoglobin at 9 and BNP in the 40s, the patient was started antibiotics and echocardiogram was ordered (60% ejection fraction), regarding other medications on admission patient received med neb, hydrocortisone, cefepime and vancomycin other than the pressors and sedative drips. CXR on 12/01/[address] abdomen revealed-1. There is no acute process in the abdomen and pelvis.2. Moderate amount of stool in the colon. On 12/01/2024 no acute intracranial process. CT angio on . No pulmonary embolism.2. Mild patchy airspace disease in the lung bases. Infectious/inflammatory process is not excluded. Septal thickening suggest fluid overload. Mediastinal and hilar lymphadenopathy. Clinical correlation and continued follow-up is recommended. Extremity arterial Doppler on 12/09/2024-Nonspecific mild elevation in velocities of the right brachial artery, right ulnar artery, left axillary artery and left brachial artery. Multiphasic arterial waveforms are present. extremity Doppler on 12/09/2024 negative for DVT. Culture on 12/02/2024 grew Enterococcus faecium. Blood culture negative for any growth. MRSA screening negative. Respiratory culture negative for any growth. ECHO 2D on 12/02/2024 revealed LVEF 60%, mild TR, impaired diastolic relaxation, counseling LVH. Mild left atrial enlargement, RVH. 12/15/2024- Patient was seen today for clinical evaluation. Labs and charts reviewed. Patient was transferred to telemetry early in the morning Patient had negative IO balance around 1025 ABG today at 10 30 revealed pH 7.17, partial pressure of carbon dioxide 81.3, bicarbonate 29.6, patient retaining carbon dioxide again, patient was put on BiPAP 15/ 5 with a continuous albuterol nebulization, methylprednisolone 60 mg IV stat was given. ordred to do stat CXR and repeat ABG CXR no acute significant change, repeat ABG shows some improvement Continued potassium supplement WBC trending down a little bit today to17.5>16.3, we will continue current antibiotic Provider called and spoke to Stacy, for [phone], answered her question and informed patient's current medical condition and plan of care. Objective vital signs Vital Sign Date Time Temp Pulse Resp B/P (MAP) Pulse Ox O2 Delivery O2 Flow Rate FiO2 12/15/24 08:10 18 92 Nasal Cannula* 4 36 12/15/24 05:26 98.5 103 146/64 (91) 98.5 Total Intake and Output 12/14/24 12/14/24 12/15/24 15:00 23:00 07:00 Intake Total 350 ml 350 ml 450 ml Output Total 1400 ml 775 ml Balance 350 ml -1050 ml -325 ml medications Current Medications Medications Dose Ordered Sig/Oswaldo Route Start Time Stop Time Status Last Admin Dose Admin Acetaminophen 650 mg Q6HP PRN PO 12/01/24 22:30 12/01/24 23:34 650 MG Pantoprazole Sodium 40 mg DAILY IV 12/01/24 22:45 12/14/24 10:12 40 MG Ipratropium [place] 0.5 mg Q4HWA NEB 12/03/24 06:00 12/14/24 22:04 0.5 MG Albuterol 2.5 mg Q4HWA NEB 12/03/24 06:00 12/14/24 22:04 2.5 MG Albuterol 2.5 mg Q3HPRN PRN NEB 12/03/24 01:15 12/06/24 01:57 2.5 MG Polyethylene Glycol 17 gm DAILY PO 12/04/24 10:00 12/07/24 09:20 17 GM Sennosides 17.2 mg HS PO 12/03/24 22:00 12/14/24 21:37 17.2 MG Linezolid 300 ml @ 150 mls/hr Q12HR IV 12/06/24 22:00 12/14/24 21:38 150 MLS/HR Hydralazine HCl 10 mg Q6HP PRN IV 12/06/24 20:30 12/12/24 00:22 10 MG Budesonide 0.5 mg BID NEB 12/07/24 10:00 12/14/24 18:20 0.5 MG Ondansetron HCl 4 mg Q6HPRN PRN IV 12/07/24 11:45 12/14/24 06:06 4 MG Cefepime HCl 50 ml @ 12.5 mls/hr Q8HR IV 12/07/24 22:00 12/15/24 06:33 12.5 MLS/HR Sodium Chloride 10 ml QSHIFT@10,22 IV 12/08/24 22:00 12/14/24 21:39 10 ML Furosemide 20 mg DAILY IV 12/15/24 10:00 Methylprednisolone Sodium Succinate 40 mg BID IV 12/14/24 22:00 12/14/24 21:38 40 MG Lorazepam 0.5 mg Q6HP PRN IV 12/14/24 16:30 12/14/24 19:57 0.5 MG Examination Neurology: Awake, alert, oriented Respiratory: Bilateral lung crackles+, wheezing+ Cardiovascular: Regular rate, Normal S1, Normal S2 Abdominal: hyperactive bowel sounds, abdomen distended, open wound in lower abdomen. Extremities: No cyanosis, No edema, Normal pulses Skin: Lower extremity plaque psoriasis, red patches with silvery scales.open wound in and sacrum and left buttock.no purulent fluid draining. laboratory and microbiology Laboratory Tests 12/15/24 03:00 Test 12/15/24 03:00 Range/Units Serum Glucose 131 H 74-106 mg/dL Microbiology Date/Time Source Procedure Growth Status 12/02/24 16:30 Nose MRSA Screen - Final Complete 12/01/24 13:20 Blood Blood Culture - Final NO GROWTH AFTER 5 DAYS OF INCUBATION. Complete 12/01/24 12:58 Sputum Gram Stain - Final Complete 12/01/24 12:58 Sputum Respiratory Culture - Final Complete Problem List/Assessment/Plan Problem List/Assessment/Plan Neurology # acute metabolic encephalopathy likely due to acute hypoxic respiratory failure/sepsis # status post sedation # status post mechanical ventilation -patient was extubated today on 12/13/24 #Anxiety, -following extubation patient was put on BiPAP breeze, tolerated well, following that patient was put on mask and saturating well -DCed all drips -Ativan 0.5 mg q.6h IV p.r.n. Cardiovascular # Septic shock # Possible acute on chronic diastolic heart failure 60% EF # Aortic atherosclerosis # Hypertension # Mild tricuspid regurgitation # Mild aortic root enlargement. # Left atrial enlargement - not on pressors - Lasix 20 mEq IV q.d. Respiratory # Acute hypercapnic respiratory failure likely due to COPD exacerbation due to Gram-positive/Gram-negative bacterial pneumonia # Pulmonary vascular congestion # COPD exacerbation # Respiratory acidosis,resolved - status post mechanical ventilation -Lasix 20 mg IV daily - Methylprednisolone 40 mg IV bid. - Albuterol neb - Ipratropium neb GI #Acute abdominal distention likely due to constipation -status post Manual disimpaction Plan is to do a swallow evaluation today -Lactulose 30cc BID /renal #hypokalemia-replenished #Dehydration # high BUN/Cr ratio #Palacios catheter since 12/01 #Uterine fibroids #Infectious disease # Septic shock likely due to Gram-positive/Gram-negative bacterial pneumonia # Skin abscess positive for E.Faecium - Linezolid 600 mg Q12 - Cefepime Q8h Heme/Onc Normocytic normochromic anemia Endocrine #type 1 obesity #metabolic syndrome Skin: #Skin psoriasis #skin abscess likely due to Hydradenitis suppurativa Vasquez II/III - wound culture positive for E.Faecium - iv antibiotics (linezolid and cefepime) - wound care - surgery on board -no surgical intervention at this moment as per surgery GI prophylaxis -IV pantoprazole 40mg daily DVT prophylaxis - SCD Drips: disontinued all drips on 12/13/2024 lines Central line placed on right internal jugular vein on 12/01/24 dc on 12/08/24 PICC line right upper arm on 12/08/24 Palacios catheter since 12/01 Periphereal line 12/[address] ET- since 12/01/2024 Goals of care/advance care planning Code status, full code PUD prophylaxis: Pantoprazole DVT prophylaxis: SCD Plan discussed with Dr. Campos, nursing staff, patient's daughter Total critical time spent on patient evaluation, chart review, assessment and plan , critical care time was 54 mins Plan discussed with: Daughter (RN), Other (RN) My Orders My Orders Orders - LETICIA KLEIN Procedure Category Date Status Time Mechanical Soft Diet DIET 12/14/24 Transmitted Lunch Lorazepam 2mg/Ml Inj PHA 12/14/24 In Process (Ativan Inj) 16:30 Transfer Orders XFER 12/14/24 Transmitted 16:30 * Dentistry Teacher CONS 12/15/24 Transmitted Consult Incentive Spirometry ORDERS 12/15/24 Transmitted 08:43 Dietary Evaluation Review Recommendations by RD: PPN/TPN Comments: 1) If GI route is preferred, consider Jevity 1.2 @ 45 mL/hr goal rate as tolerated. Flush with 200 mL free H2O Q6. Goal rate will provide 1296 kcals, 60g Pro, and 1672 mL H2O (including flushes) per 24 hrs. Goal rate will provide ~ 100% of daily estimated energy requirements and 82% daily estimated protein requirements. 2) Initiate Kyle @ 1 pk bid 3) If patient remains NPO for more than 7 days, consider TPN to meet at least 75% of estimated needs 4) Advance patient diet when medically feasible to cardiac diet 5) Refer to outpatient RD for weight management 6) F/u with pulmonology and cardiology Expected Outcomes/Goals: 1) patient to receive nutrition within 7 days 2) labs and wound to improve 3) diet to advance 4) f/u in 3 days Date of Service: Dec 15, 2024 Billing Provider: TIMOTEO CAMPOS MD Common Visit Codes: 22927-YPBCYKHK CARE 30-74 MIN LETICIA KLEIN Dec 15, 2024 09:14 TIMOTEO CAMPOS MD Dec 17, 2024 16:44
[2024-12-15] MEDS: FUROSEMIDE 20 MG/2 ML VIAL IV SCH (09:33)
[2024-12-15] MEDS ORDERED: POTASSIUM CHL 20 Meq TABLET PO SCH (10:00)
[2024-12-15 10:45] LABS: Base Excess -0.4 mmol/L (-2.0-3.0)
[2024-12-15] MEDS: methylPREDNISolone SOD SUCC 40 MG/ML VL IV STA (11:12)
[2024-12-15] MEDS: ALBUTEROL SULF 2.5 MG/0.5ML(0.5%) NEB SOLN NEB ONE (11:15)
[2024-12-15 12:34] LABS: Base Excess -1.6 mmol/L (-2.0-3.0)
--- NOTE | 2024-12-15 14:03 | DVH ---
EXAM: XY CHEST PORTABLE Indication: copd Technique: Single frontal view of the chest was obtained Comparison: XY CHEST PORTABLE on DOS: 12/14/24, XY CHEST PORTABLE on DOS: 12/13/24, XY CHEST PORTABLE o n DOS: 12/13/24, XY CHEST XRAY 1 VIEW on DOS: 12/12/24, XY CHEST PORTABLE on DOS: 12/11/24 FINDINGS: Lines and Tubes: Right PICC tip projects over the superior vena cava. Lungs: Pulmonary vascular congestion. Pleura: No effusion. No pneumothorax. Cardiomediastinal contours: Unremarkable Bones: No acute osseous abnormality. IMPRESSION: No significant change compared to prior exam.
[2024-12-15 15:01] LABS: Base Excess 0.7 mmol/L (-2.0-3.0)
[2024-12-16] VITALS (18 sets, daily range): BP systolic 125–146; BP diastolic 57–75; PULSE 90–110; RESP 16–28; TEMP 97.8–98.7; O2SAT 92–100
[2024-12-16] MEDS: QUEtiapine FUMARATE 25 MG TAB PO ONE (01:05)
[2024-12-16 05:32] LABS: Basophils # (auto) 0 10 ^3/uL (0-0.2); Basophils % (auto) 0.1 % (0.0-2.0); Eosinophils # (auto) 0 10 ^3/uL (0-0.8); Hematocrit 29.3 % (36.0-46.0); Hemoglobin 9.1 g/dL (12.2-16.2); Lymphocytes # (auto) 0.7 10 ^3/uL (0.4-5.4); Lymphocytes % (auto) 4.5 % (10.0-50.0); Mean Corpuscular Hemoglobin 27.4 pg (28.0-32.0); Mean Corpuscular Hgb Conc. 31.1 g/dL (32.0-36.0); Mean Corpuscular Volume 88.1 fL (80.0-100.0); Monocytes # (auto) 0.8 10 ^3/uL (0-1.3); Monocytes % (auto) 4.6 % (0.0-12.0); Neutrophils % (auto) 90.8 % (37.0-80.0); Nucleated Red Blood Cells % 0.1 %; Platelet Count (auto) 124 10^3/uL (140-450); Red Blood Cells 3.33 10^6/uL (4.0-5.20); Red Cell Distribution Width 18.4 % (11.8-14.3); White Blood Cell 16.5 10^3/uL (4.4-10.8)
[2024-12-16 05:48] LABS: Chloride 106 mmol/L (98-107); Potassium 3.8 mmol/L (3.5-5.1); Sodium 142 mmol/L (136-145)
[2024-12-16 05:49] LABS: Anion Gap 5 (5-15); Carbon Dioxide 31 mmol/L (20-31)
[2024-12-16 05:55] LABS: BUN/Creatinine Ratio 35.7 (10.0-20.0); Magnesium 2.4 mg/dL (1.6-2.6)
[2024-12-16 06:20] LABS: Blood Urea Nitrogen 25 mg/dL (9-23); Calcium 10.5 mg/dL (8.7-10.4); Glucose 140 mg/dL (74-106)
[2024-12-16 07:31] LABS: Base Excess 1.4 mmol/L (-2.0-3.0)
--- NOTE | 2024-12-16 08:50 | DVHPNRES ---
Progress Note Date Seen: Dec 16, 2024 Resident Creating Document: LETICIA KLEIN RESIDENT Has the PT tested + for MRSA If YES, has PT been informed?: No Medical Necessity Reason Pt with a Central, PICC or Fol: Yes The following are medically ne: PICC Line, Palacios Catheter Reason for palacios catheter: Strict I&O, Total Immobilization Subjective Review of Systems HPI-patient is 64-year-old female patient with past medical history of COPD, heart failure, asthma, anxiety, depression, panic attacks, psoriasis , patient was brought to the hospital on December 01 with a chief complaint of shortness of breaths for the past 5 days before admission, she was started on breathing treatments, at the time BS was noted to be on 190s and patient was lethargic, tachypneic and tachycardic, per family patient had flu symptoms a couple of days prior to admission, ABG at that time showed marked respiratory acidosis with pCO2 on the 170s, in the ER they decided for intubation. Laboratory results showed leukocytosis, anemia with a hemoglobin at 9 and BNP in the 40s, the patient was started antibiotics and echocardiogram was ordered (60% ejection fraction), regarding other medications on admission patient received med neb, hydrocortisone, cefepime and vancomycin other than the pressors and sedative drips. CXR on 12/01/[address] abdomen revealed-1. There is no acute process in the abdomen and pelvis.2. Moderate amount of stool in the colon. On 12/01/2024 no acute intracranial process. CT angio on . No pulmonary embolism.2. Mild patchy airspace disease in the lung bases. Infectious/inflammatory process is not excluded. Septal thickening suggest fluid overload. Mediastinal and hilar lymphadenopathy. Clinical correlation and continued follow-up is recommended. Extremity arterial Doppler on 12/09/2024-Nonspecific mild elevation in velocities of the right brachial artery, right ulnar artery, left axillary artery and left brachial artery. Multiphasic arterial waveforms are present. extremity Doppler on 12/09/2024 negative for DVT. Wound Culture on 12/02/2024 grew Enterococcus faecium. Blood culture negative for any growth. MRSA screening negative. Respiratory culture negative for any growth. ECHO 2D on 12/02/2024 revealed LVEF 60%, mild TR, impaired diastolic relaxation, counseling LVH. Mild left atrial enlargement, RVH. Patient was extubated on 12/13/24. Patient was transferred to the floor on telemetry on 12/15/24. On 12/15/24 patient was retaining carbon dioxide again and was put on BiPAP and patient gradually improved, BiPAP was remove on 0 12/16/24 in the morning. 12/16/2024- Patient was seen today for clinical evaluation. Labs and charts reviewed. Patient had negative IO balance around 1025 Patient was taken off BiPAP early in the morning, patient was on NC O2 2 liter/minute, patient breathing well, awake and alert, no acute respiratory distress noted at this moment ABG around 724 today revealed pH 7.33, bicarbonate 54.1, partial pressure of oxygen 56.9, bicarbonate 28. Patient with leukocytosis, WBC trending 17.5>16.3>16.5, we will continue current antibiotic -Platelate trending down, 240>200>207>272>246>190 >124, Spoke to Pharmacist Maikol, regarding medication that could lead to thrombocytopenia , - recommended to monitor Paltelate Count , if Platelates continues dropping - countinues to drop below <100,000 , stop Linezolide, Change to Daptomycin Provider called and spoke to Stacy, for [phone], answered her question and informed patient's current medical condition and plan of care. Plan is to keep patient on BiPAP at night from 10:00 p.m. to 6:00 a.m. with a setting of 15/ [address] Santana Plan is to discharge patient to SNF for physical therapy Social service consult for SNF in place Objective vital signs Vital Sign Date Time Temp Pulse Resp B/P (MAP) Pulse Ox O2 Delivery O2 Flow Rate FiO2 12/16/24 07:53 20 98 Nasal Cannula* 3 32 12/16/24 05:40 96 12/16/24 05:00 97.8 132/57 (82) 97.8 Total Intake and Output 12/15/24 12/15/24 12/16/24 15:00 23:00 07:00 Intake Total 600 ml 862.5 ml Output Total 1800 ml 700 ml Balance -1200 ml 162.5 ml medications Current Medications Medications Dose Ordered Sig/Oswaldo Route Start Time Stop Time Status Last Admin Dose Admin Acetaminophen 650 mg Q6HP PRN PO 12/01/24 22:30 12/01/24 23:34 650 MG Pantoprazole Sodium 40 mg DAILY IV 12/01/24 22:45 12/15/24 09:33 40 MG Ipratropium [place] 0.5 mg Q4HWA NEB 12/03/24 06:00 12/16/24 05:40 0.5 MG Albuterol 2.5 mg Q4HWA NEB 12/03/24 06:00 12/16/24 05:39 2.5 MG Albuterol 2.5 mg Q3HPRN PRN NEB 12/03/24 01:15 12/06/24 01:57 2.5 MG Polyethylene Glycol 17 gm DAILY PO 12/04/24 10:00 12/15/24 09:33 17 GM Sennosides 17.2 mg HS PO 12/03/24 22:00 12/15/24 21:04 17.2 MG Linezolid 300 ml @ 150 mls/hr Q12HR IV 12/06/24 22:00 12/15/24 21:04 150 MLS/HR Hydralazine HCl 10 mg Q6HP PRN IV 12/06/24 20:30 12/12/24 00:22 10 MG Budesonide 0.5 mg BID NEB 12/07/24 10:00 12/15/24 22:01 0.5 MG Ondansetron HCl 4 mg Q6HPRN PRN IV 12/07/24 11:45 12/14/24 06:06 4 MG Cefepime HCl 50 ml @ 12.5 mls/hr Q8HR IV 12/07/24 22:00 12/16/24 05:14 12.5 MLS/HR Sodium Chloride 10 ml QSHIFT@10,22 IV 12/08/24 22:00 12/15/24 21:09 10 ML Furosemide 20 mg DAILY IV 12/15/24 10:00 12/15/24 09:33 20 MG Methylprednisolone Sodium Succinate 40 mg BID IV 12/14/24 22:00 12/15/24 21:09 40 MG Examination Neurology: Awake, alert, oriented Respiratory: Bilateral lung crackles+, wheezing+ Cardiovascular: Regular rate, Normal S1, Normal S2 Abdominal: hyperactive bowel sounds, abdomen distended, open wound in lower abdomen. Extremities: No cyanosis, No edema, Normal pulses Skin: Lower extremity plaque psoriasis, red patches with silvery scales.open wound in and sacrum and left buttock.no purulent fluid draining. laboratory and microbiology Laboratory Tests 12/16/24 05:07 Test 12/16/24 05:07 Range/Units Serum Glucose 140 H 74-106 mg/dL Microbiology Date/Time Source Procedure Growth Status 12/02/24 16:30 Nose MRSA Screen - Final Complete 12/01/24 13:20 Blood Blood Culture - Final NO GROWTH AFTER 5 DAYS OF INCUBATION. Complete 12/01/24 12:58 Sputum Gram Stain - Final Complete 12/01/24 12:58 Sputum Respiratory Culture - Final Complete Problem List/Assessment/Plan Problem List/Assessment/Plan Neurology # acute metabolic encephalopathy likely due to acute hypoxic respiratory failure/sepsis -patient was extubated today on 12/13/24 #Anxiety, -following extubation patient was put on BiPAP breeze, tolerated well, following that patient was put on mask and saturating well -DCed all drips -no sedatives Cardiovascular # Septic shock # Possible acute on chronic diastolic heart failure 60% EF # Aortic atherosclerosis # Hypertension # Mild tricuspid regurgitation # Mild aortic root enlargement. # Left atrial enlargement - not on pressors - Lasix 20 mEq IV q.d. Respiratory # Acute hypercapnic respiratory failure likely due to COPD exacerbation due to Gram-positive/Gram-negative bacterial pneumonia # Pulmonary vascular congestion # COPD exacerbation # Respiratory acidosis,resolved - status post mechanical ventilation -Lasix 20 mg IV daily - Methylprednisolone 40 mg IV bid. - Albuterol neb - Ipratropium neb -BiPAP at night from 10:00 p.m. to 6:00 a.m. with a setting of 15/5 GI #Acute abdominal distention likely due to constipation -status post Manual disimpaction Plan is to do a swallow evaluation today -Lactulose 30cc BID /renal #hypokalemia-replenished #Dehydration # high BUN/Cr ratio #Palacios catheter since 12/01 #Uterine fibroids #Infectious disease # Septic shock likely due to Gram-positive/Gram-negative bacterial pneumonia # Skin abscess positive for E.Faecium - Linezolid 600 mg Q12 - Cefepime Q8h Heme/Onc Normocytic normochromic anemia --Platelate trending down, 240>200>207>272>246>190 >124, Spoke to Pharmacist Maikol, regarding medication that could lead to thrombocytopenia , - recommended to monitor Paltelate Count , if Platelates continues dropping - countinues to drop below <100,000 , stop Linezolide, Change to Daptomycin Endocrine #type 1 obesity #metabolic syndrome Skin: #Skin psoriasis #skin abscess likely due to Hydradenitis suppurativa Vasquez II/III - wound culture positive for E.Faecium - iv antibiotics (linezolid and cefepime) - wound care - surgery on board -no surgical intervention at this moment as per surgery GI prophylaxis -IV pantoprazole 40mg daily DVT prophylaxis - SCD Drips: disontinued all drips on 12/13/2024 lines Central line placed on right internal jugular vein on 12/01/24 dc on 12/08/24 PICC line right upper arm on 12/08/24 Palacios catheter since 12/01 Periphereal line 12/[address] ET- since 12/01/2024 Goals of care/advance care planning Code status, full code PUD prophylaxis: Pantoprazole DVT prophylaxis: SCD Plan discussed with Dr. Santana, nursing staff, patient's daughter Total critical time spent on patient evaluation, chart review, assessment and plan , critical care time was 74 mins Plan discussed with: Patient, Daughter, Other (RN) My Orders My Orders Orders - LETICIA KLEIN RESIDENT Procedure Category Date Status Time Abg W/ Co-Ox RT 12/15/24 Logged 10:27 BIPAP RT 12/15/24 Logged 10:52 Bipap/Cpap For Sleep RT 12/15/24 Logged Apnea 11:23 Chest Portable XY 12/16/24 Taken 05:00 Abg W/ Co-Ox RT 12/16/24 Logged 06:00 Communication Order ORDERS 12/16/24 Transmitted 06:51 Dietary Evaluation Review Recommendations by RD: PPN/TPN Comments: 1) If GI route is preferred, consider Jevity 1.2 @ 45 mL/hr goal rate as tolerated. Flush with 200 mL free H2O Q6. Goal rate will provide 1296 kcals, 60g Pro, and 1672 mL H2O (including flushes) per 24 hrs. Goal rate will provide ~ 100% of daily estimated energy requirements and 82% daily estimated protein requirements. 2) Initiate Kyle @ 1 pk bid 3) If patient remains NPO for more than 7 days, consider TPN to meet at least 75% of estimated needs 4) Advance patient diet when medically feasible to cardiac diet 5) Refer to outpatient RD for weight management 6) F/u with pulmonology and cardiology Expected Outcomes/Goals: 1) patient to receive nutrition within 7 days 2) labs and wound to improve 3) diet to advance 4) f/u in 3 days LETICIA KLEIN RESIDENT Dec 16, 2024 08:50
--- NOTE | 2024-12-16 09:29 | DVH ---
CHEST RADIOGRAPH Indication: PNA Technique: Single frontal view of the chest was obtained COMPARISON: XY CHEST PORTABLE on DOS: 12/15/24, XY CHEST PORTABLE on DOS: 12/14/24, XY CHEST PORTABLE o n DOS: 12/13/24, XY CHEST PORTABLE on DOS: 12/13/24, XY CHEST XRAY 1 VIEW on DOS: 12/12/24 FINDINGS: Lines and Tubes: Right PICC in satisfactory position Lungs: Mild congestion Pleura: No effusion. No pneumothorax. Cardiomediastinal contours: Unremarkable Bones: Unremarkable IMPRESSION: Mild increased pulmonary vascular congestion
[2024-12-17] VITALS (19 sets, daily range): BP systolic 134–148; BP diastolic 55–70; PULSE 83–107; RESP 16–28; TEMP 98.1–98.8; O2SAT 95–100
[2024-12-17] MEDS: MELATONIN 5 MG TAB PO ONE (02:31)
[2024-12-17 08:09] LABS: Base Excess 1.1 mmol/L (-2.0-3.0)
[2024-12-17 08:22] LABS: Basophils # (auto) 0 10 ^3/uL (0-0.2); Basophils % (auto) 0.2 % (0.0-2.0); Eosinophils # (auto) 0 10 ^3/uL (0-0.8); Hematocrit 31.1 % (36.0-46.0); Hemoglobin 9.9 g/dL (12.2-16.2); Lymphocytes % (auto) 4.9 % (10.0-50.0); Mean Corpuscular Hemoglobin 27.9 pg (28.0-32.0); Mean Corpuscular Volume 87.3 fL (80.0-100.0); Neutrophils # (auto) 18.7 10 ^3/uL (1.6-8.6); Neutrophils % (auto) 89.9 % (37.0-80.0); Nucleated Red Blood Cells % 0.1 %; Platelet Count (auto) 135 10^3/uL (140-450); Red Blood Cells 3.56 10^6/uL (4.0-5.20); Red Cell Distribution Width 18.5 % (11.8-14.3); White Blood Cell 20.8 10^3/uL (4.4-10.8)
[2024-12-17 08:38] LABS: Alanine Aminotransferase 35 U/L (7-40); Albumin 4.4 g/dL (3.2-4.8); Alkaline Phosphatase 51 U/L (46-116); Anion Gap 6 (5-15); Aspartate Aminotransferase 21 U/L (13-40); BUN/Creatinine Ratio 31.4 (10.0-20.0); Blood Urea Nitrogen 22 mg/dL (9-23); Carbon Dioxide 30 mmol/L (20-31); Chloride 106 mmol/L (98-107); Magnesium 2.4 mg/dL (1.6-2.6); Potassium 3.6 mmol/L (3.5-5.1); Sodium 142 mmol/L (136-145); Total Protein 7.1 g/dL (5.7-8.2)
[2024-12-17 08:39] LABS: Bilirubin, Total 0.4 mg/dL (0.2-1.0)
[2024-12-17 08:41] LABS: Calcium 10.6 mg/dL (8.7-10.4); Glucose 120 mg/dL (74-106)
[2024-12-17] MEDS: QUEtiapine FUMARATE 25 MG TAB PO SCH (10:25)
--- NOTE | 2024-12-17 13:11 | DVHPN2 ---
Reviewed: Care Plan, H&P, Labs, Medications, Previous Orders, Radiology Changes from previous H/P or p: No Changes Objective Vitals Vital Signs Date Time Temp Pulse Resp B/P (MAP) Pulse Ox O2 Delivery O2 Flow Rate FiO2 12/17/24 12:56 98.4 96 17 142/67 (92) 98 98.4 12/17/24 10:45 Nasal Cannula* 2 28 Intake/Output Intake and Output 12/17/24 07:00 Intake Total 1770 ml Output Total 2975 ml Balance -1205 ml Intake Oral 1020 ml IV Total 750 ml Output Urine Total 2975 ml # Bowel Movements 7 General Appearance: Alert, Other (Intubated, on vent) HEENT: Atraumatic, PERRLA, EOMI, Mucous membr. moist/pink Neck: Supple Lungs: Clear to auscultation, Normal air movement Cardiovascular: Regular rate, Normal S1, Normal S2, No murmurs, Gallops, Rubs Abdomen: Normal bowel sounds, Soft, No tenderness, No hepatospenomegaly Extremities: Normal pulses Neuro: Cranial nerves 3-12 NL Psych/Mental Status: Mental status NL Medications Current Medications Medications Dose Ordered Sig/Oswaldo Route Start Time Stop Time Status Last Admin Dose Admin Acetaminophen 650 mg Q6HP PRN PO 12/01/24 22:30 12/01/24 23:34 650 MG Pantoprazole Sodium 40 mg DAILY IV 12/01/24 22:45 12/17/24 10:25 40 MG Ipratropium [place] 0.5 mg Q4HWA NEB 12/03/24 06:00 12/17/24 10:45 0.5 MG Albuterol 2.5 mg Q4HWA NEB 12/03/24 06:00 12/17/24 10:45 2.5 MG Albuterol 2.5 mg Q3HPRN PRN NEB 12/03/24 01:15 12/06/24 01:57 2.5 MG Polyethylene Glycol 17 gm DAILY PO 12/04/24 10:00 12/17/24 10:25 17 GM Sennosides 17.2 mg HS PO 12/03/24 22:00 12/16/24 21:22 17.2 MG Linezolid 300 ml @ 150 mls/hr Q12HR IV 12/06/24 22:00 12/17/24 10:29 150 MLS/HR Hydralazine HCl 10 mg Q6HP PRN IV 12/06/24 20:30 12/12/24 00:22 10 MG Budesonide 0.5 mg BID NEB 12/07/24 10:00 12/17/24 07:34 0.5 MG Ondansetron HCl 4 mg Q6HPRN PRN IV 12/07/24 11:45 12/14/24 06:06 4 MG Cefepime HCl 50 ml @ 12.5 mls/hr Q8HR IV 12/07/24 22:00 12/17/24 06:04 12.5 MLS/HR Sodium Chloride 10 ml QSHIFT@10,22 IV 12/08/24 22:00 12/17/24 10:00 10 ML Furosemide 20 mg DAILY IV 12/15/24 10:00 12/17/24 10:40 20 MG Methylprednisolone Sodium Succinate 40 mg BID IV 12/14/24 22:00 12/17/24 10:24 40 MG Quetiapine Fumarate 50 mg DAILY PO 12/17/24 10:00 12/17/24 10:25 50 MG Laboratory Results Laboratory Tests 12/17/24 07:29 Chemistry Test 12/17/24 07:29 Albumin 4.4 g/dL (3.2-4.8) Calcium Level 10.6 mg/dL (8.7-10.4) H Magnesium Level 2.4 mg/dL (1.6-2.6) Total Protein 7.1 g/dL (5.7-8.2) LFT Test 12/17/24 07:29 Alanine Aminotransferase (ALT) 35 U/L (7-40) Alkaline Phosphatase 51 U/L (46-116) Aspartate Amino Transferase (AST) 21 U/L (13-40) Total Bilirubin 0.4 mg/dL (0.2-1.0) Urinalysis Test 12/01/24 12:55 Urine Color Light-yellow (Yellow) Urine Clarity Clear (Clear) Urine pH 6.0 (5.0-9.0) Urine Specific [place] 1.018 (1.001-1.035) Urine Protein 1+ (Negative) H Urine Ketones Negative (Negative) Urine Blood Negative /uL (Negative) Urine Nitrite Negative (Negative) Urine Bilirubin Negative (Negative) Urine Urobilinogen Normal mg/dL (Negative) Urine Leukocyte Esterase Negative /uL (Negative) Urine RBC 1 /hpf (0 - 4) Urine Microscopic WBC 1 /HPF (0-5) Urine Squamous Epithelial Cells Few /hpf (<5) Urine Bacteria None seen /hpf (None Seen) Urine Hyaline Casts Few /lpf (0 - 2) Urine Mucus Few (None Seen) Urine Glucose Normal mg/dL (Normal) Blood Gas Results Test 12/17/24 07:58 Arterial Blood pH 7.251 (7.350-7.450) FiO2 % 28.0 Microbiology Microbiology Date/Time Source Procedure Growth Status 12/02/24 16:30 Nose MRSA Screen - Final Complete 12/01/24 13:20 Blood Blood Culture - Final NO GROWTH AFTER 5 DAYS OF INCUBATION. Complete 12/01/24 12:58 Sputum Gram Stain - Final Complete 12/01/24 12:58 Sputum Respiratory Culture - Final Complete Labs and/or images reviewed: Labs reviewed by me, Image(s) reviewed by me Assessment/Plan Assessment/Plan Covering for resident physician Neurology # acute metabolic encephalopathy likely due to acute hypoxic respiratory failure/sepsis -patient was extubated today on 12/13/24 #Anxiety, -following extubation patient was put on BiPAP breeze, tolerated well, following that patient was put on mask and saturating well -DCed all drips -no sedatives Cardiovascular # Septic shock # Possible acute on chronic diastolic heart failure 60% EF # Aortic atherosclerosis # Hypertension # Mild tricuspid regurgitation # Mild aortic root enlargement. # Left atrial enlargement - not on pressors - Lasix 20 mEq IV q.d. Respiratory # Acute hypercapnic respiratory failure likely due to COPD exacerbation due to Gram-positive/Gram-negative bacterial pneumonia # Pulmonary vascular congestion # COPD exacerbation # Respiratory acidosis,resolved - status post mechanical ventilation -Lasix 20 mg IV daily - Methylprednisolone 40 mg IV bid. - Albuterol neb - Ipratropium neb -BiPAP at night from 10:00 p.m. to 6:00 a.m. with a setting of 16/02 GI #Acute abdominal distention likely due to constipation -status post Manual disimpaction Plan is to do a swallow evaluation today -Lactulose 30cc BID /renal #hypokalemia-replenished #Dehydration # high BUN/Cr ratio #Cavazos catheter since 12/01 #Uterine fibroids #Infectious disease # Septic shock likely due to Gram-positive/Gram-negative bacterial pneumonia # Skin abscess positive for E.Faecium - Linezolid 600 mg Q12 - Cefepime Q8h Heme/Onc Normocytic normochromic anemia --Platelate trending down, 240>200>207>272>246>190 >124, Spoke to Pharmacist Maikol, regarding medication that could lead to thrombocytopenia , - recommended to monitor Paltelate Count , if Platelates continues dropping - countinues to drop below <100,000 , stop Linezolide, Change to Daptomycin Endocrine #type 1 obesity #metabolic syndrome Skin: #Skin psoriasis #skin abscess likely due to Hydradenitis suppurativa Vasquez II/III - wound culture positive for E.Faecium - iv antibiotics (linezolid and cefepime) - wound care - surgery on board -no surgical intervention at this moment as per surgery Continue current management Plan discussed with: Patient Date of Service: Dec 17, 2024 Billing Provider: BREANNA VAUGHAN MD Common Visit Codes: [id number] INP/OBS CARE(HIGH) BREANNA VAUGHAN MD Dec 17, 2024 13:11
[2024-12-18] VITALS (19 sets, daily range): BP systolic 132–155; BP diastolic 58–76; PULSE 84–113; RESP 16–19; TEMP 97.7–98.9; O2SAT 95–100
--- NOTE | 2024-12-18 08:25 | DVHPN2 ---
Reviewed: Care Plan, H&P, Labs, Medications, Previous Orders, Radiology Changes from previous H/P or p: No Changes Objective Vitals Vital Signs Date Time Temp Pulse Resp B/P (MAP) Pulse Ox O2 Delivery O2 Flow Rate FiO2 12/18/24 06:11 87 19 100 12/18/24 06:05 Nasal Cannula* 2 28 12/18/24 05:00 98.2 155/76 (102) 98.2 Intake/Output Intake and Output 12/18/24 07:00 Intake Total 1835.0 ml Output Total 2450 ml Balance -615.0 ml Intake Oral 1060 ml IV Total 775.0 ml Output Urine Total 2450 ml # Bowel Movements 3 General Appearance: Alert, Other (Intubated, on vent) HEENT: Atraumatic, PERRLA, EOMI, Mucous membr. moist/pink Neck: Supple Lungs: Clear to auscultation, Normal air movement Cardiovascular: Regular rate, Normal S1, Normal S2, No murmurs, Gallops, Rubs Abdomen: Normal bowel sounds, Soft, No tenderness, No hepatospenomegaly Extremities: Normal pulses Neuro: Cranial nerves 3-12 NL Psych/Mental Status: Mental status NL Medications Current Medications Medications Dose Ordered Sig/Oswaldo Route Start Time Stop Time Status Last Admin Dose Admin Acetaminophen 650 mg Q6HP PRN PO 12/01/24 22:30 12/01/24 23:34 650 MG Pantoprazole Sodium 40 mg DAILY IV 12/01/24 22:45 12/17/24 10:25 40 MG Ipratropium [place] 0.5 mg Q4HWA NEB 12/03/24 06:00 12/18/24 06:05 0.5 MG Albuterol 2.5 mg Q4HWA NEB 12/03/24 06:00 12/18/24 06:05 2.5 MG Albuterol 2.5 mg Q3HPRN PRN NEB 12/03/24 01:15 12/06/24 01:57 2.5 MG Polyethylene Glycol 17 gm DAILY PO 12/04/24 10:00 12/17/24 10:25 17 GM Sennosides 17.2 mg HS PO 12/03/24 22:00 12/17/24 21:30 17.2 MG Hydralazine HCl 10 mg Q6HP PRN IV 12/06/24 20:30 12/12/24 00:22 10 MG Budesonide 0.5 mg BID NEB 12/07/24 10:00 12/18/24 06:05 0.5 MG Ondansetron HCl 4 mg Q6HPRN PRN IV 12/07/24 11:45 12/14/24 06:06 4 MG Cefepime HCl 50 ml @ 12.5 mls/hr Q8HR IV 12/07/24 22:00 12/18/24 05:52 12.5 MLS/HR Sodium Chloride 10 ml QSHIFT@10,22 IV 12/08/24 22:00 12/17/24 21:30 10 ML Furosemide 20 mg DAILY IV 12/15/24 10:00 12/17/24 10:40 20 MG Methylprednisolone Sodium Succinate 40 mg BID IV 12/14/24 22:00 12/17/24 21:30 40 MG Quetiapine Fumarate 50 mg DAILY PO 12/17/24 10:00 12/17/24 10:25 50 MG Laboratory Results Laboratory Tests 12/17/24 07:29 Urinalysis Test 12/01/24 12:55 Urine Color Light-yellow (Yellow) Urine Clarity Clear (Clear) Urine pH 6.0 (5.0-9.0) Urine Specific [place] 1.018 (1.001-1.035) Urine Protein 1+ (Negative) H Urine Ketones Negative (Negative) Urine Blood Negative /uL (Negative) Urine Nitrite Negative (Negative) Urine Bilirubin Negative (Negative) Urine Urobilinogen Normal mg/dL (Negative) Urine Leukocyte Esterase Negative /uL (Negative) Urine RBC 1 /hpf (0 - 4) Urine Microscopic WBC 1 /HPF (0-5) Urine Squamous Epithelial Cells Few /hpf (<5) Urine Bacteria None seen /hpf (None Seen) Urine Hyaline Casts Few /lpf (0 - 2) Urine Mucus Few (None Seen) Urine Glucose Normal mg/dL (Normal) Microbiology Microbiology Date/Time Source Procedure Growth Status 12/02/24 16:30 Nose MRSA Screen - Final Complete 12/01/24 13:20 Blood Blood Culture - Final NO GROWTH AFTER 5 DAYS OF INCUBATION. Complete 12/01/24 12:58 Sputum Gram Stain - Final Complete 12/01/24 12:58 Sputum Respiratory Culture - Final Complete Labs and/or images reviewed: Labs reviewed by me, Image(s) reviewed by me Assessment/Plan Assessment/Plan Covering for resident physician Neurology # acute metabolic encephalopathy likely due to acute hypoxic respiratory failure/sepsis -patient was extubated today on 12/13/24 #Anxiety, -following extubation patient was put on BiPAP breeze, tolerated well, following that patient was put on mask and saturating well -DCed all drips -no sedatives Cardiovascular # Septic shock # Possible acute on chronic diastolic heart failure 60% EF # Aortic atherosclerosis # Hypertension # Mild tricuspid regurgitation # Mild aortic root enlargement. # Left atrial enlargement - not on pressors - Lasix 20 mEq IV q.d. Respiratory # Acute hypercapnic respiratory failure likely due to COPD exacerbation due to Gram-positive/Gram-negative bacterial pneumonia # Pulmonary vascular congestion # COPD exacerbation # Respiratory acidosis,resolved - status post mechanical ventilation -Lasix 20 mg IV daily - Methylprednisolone 40 mg IV bid. - Albuterol neb - Ipratropium neb -BiPAP at night from 10:00 p.m. to 6:00 a.m. with a setting of 15/5 GI #Acute abdominal distention likely due to constipation -status post Manual disimpaction Plan is to do a swallow evaluation today -Lactulose 30cc BID /renal #hypokalemia-replenished #Dehydration # high BUN/Cr ratio #Cavazos catheter since 12/01 #Uterine fibroids #Infectious disease # Septic shock likely due to Gram-positive/Gram-negative bacterial pneumonia # Skin abscess positive for E.Faecium - Linezolid 600 mg Q12 - Cefepime Q8h Heme/Onc Normocytic normochromic anemia --Platelate trending down, 240>200>207>272>246>190 >124, Spoke to Pharmacist [facility], regarding medication that could lead to thrombocytopenia , - recommended to monitor Paltelate Count , if Platelates continues dropping - countinues to drop below <100,000 , stop Linezolide, Change to Daptomycin Endocrine #type 1 obesity #metabolic syndrome Skin: #Skin psoriasis #skin abscess likely due to Hydradenitis suppurativa Vasquez II/III - wound culture positive for E.Faecium - iv antibiotics (linezolid and cefepime) - wound care - surgery on board -no surgical intervention at this moment as per surgery Continue current management and medications Plan discussed with: Patient Date of Service: Dec 18, 2024 Billing Provider: BREANNA VAUGHAN MD Common Visit Codes: [id number] INP/OBS CARE(HIGH) BREANNA VAUGHAN MD Dec 18, 2024 08:25
[2024-12-19] VITALS (18 sets, daily range): BP systolic 122–141; BP diastolic 52–77; PULSE 60–101; RESP 16–20; TEMP 98.2–98.9; O2SAT 97–100
[2024-12-19 06:18] LABS: Basophils # (auto) 0 10 ^3/uL (0-0.2); Basophils % (auto) 0.1 % (0.0-2.0); Eosinophils # (auto) 0 10 ^3/uL (0-0.8); Hematocrit 34.4 % (36.0-46.0); Hemoglobin 10.7 g/dL (12.2-16.2); Lymphocytes # (auto) 0.4 10 ^3/uL (0.4-5.4); Lymphocytes % (auto) 2.6 % (10.0-50.0); Mean Corpuscular Hemoglobin 27.2 pg (28.0-32.0); Mean Corpuscular Hgb Conc. 31.1 g/dL (32.0-36.0); Mean Corpuscular Volume 87.5 fL (80.0-100.0); Monocytes # (auto) 0.4 10 ^3/uL (0-1.3); Monocytes % (auto) 2.1 % (0.0-12.0); Neutrophils # (auto) 15.7 10 ^3/uL (1.6-8.6); Neutrophils % (auto) 95.2 % (37.0-80.0); Platelet Count (auto) 98 10^3/uL (140-450); Red Blood Cells 3.93 10^6/uL (4.0-5.20); Red Cell Distribution Width 18.4 % (11.8-14.3); White Blood Cell 16.5 10^3/uL (4.4-10.8)
[2024-12-19 06:35] LABS: Alanine Aminotransferase 27 U/L (7-40); Alkaline Phosphatase 55 U/L (46-116); Anion Gap 6 (5-15); BUN/Creatinine Ratio 34.9 (10.0-20.0); Blood Urea Nitrogen 22 mg/dL (9-23); Chloride 105 mmol/L (98-107); Sodium 143 mmol/L (136-145); Total Protein 7.4 g/dL (5.7-8.2)
[2024-12-19 06:36] LABS: Albumin 4.6 g/dL (3.2-4.8); Aspartate Aminotransferase 13 U/L (13-40); Bilirubin, Total 0.4 mg/dL (0.2-1.0)
[2024-12-19 06:38] LABS: Calcium 10.9 mg/dL (8.7-10.4); Carbon Dioxide 32 mmol/L (20-31); Glucose 137 mg/dL (74-106)
--- NOTE | 2024-12-19 14:34 | DVHPNRES ---
Progress Note Date Seen: Dec 19, 2024 Resident Creating Document: LETICIA KLEIN RESIDENT Has the PT tested + for MRSA If YES, has PT been informed?: No Medical Necessity Reason Pt with a Central, PICC or Fol: Yes The following are medically ne: PICC Line, Palacios Catheter Reason for palacios catheter: Strict I&O, Total Immobilization Subjective Review of Systems HPI-patient is 64-year-old female patient with past medical history of COPD, heart failure, asthma, anxiety, depression, panic attacks, psoriasis , patient was brought to the hospital on December 01 with a chief complaint of shortness of breaths for the past 5 days before admission, she was started on breathing treatments, at the time BS was noted to be on 190s and patient was lethargic, tachypneic and tachycardic, per family patient had flu symptoms a couple of days prior to admission, ABG at that time showed marked respiratory acidosis with pCO2 on the 170s, in the ER they decided for intubation. Laboratory results showed leukocytosis, anemia with a hemoglobin at 9 and BNP in the 40s, the patient was started antibiotics and echocardiogram was ordered (60% ejection fraction), regarding other medications on admission patient received med neb, hydrocortisone, cefepime and vancomycin other than the pressors and sedative drips. CXR on 12/01/[address] abdomen revealed-1. There is no acute process in the abdomen and pelvis.2. Moderate amount of stool in the colon. On 12/01/2024 no acute intracranial process. CT angio on . No pulmonary embolism.2. Mild patchy airspace disease in the lung bases. Infectious/inflammatory process is not excluded. Septal thickening suggest fluid overload. Mediastinal and hilar lymphadenopathy. Clinical correlation and continued follow-up is recommended. Extremity arterial Doppler on 12/09/2024-Nonspecific mild elevation in velocities of the right brachial artery, right ulnar artery, left axillary artery and left brachial artery. Multiphasic arterial waveforms are present. extremity Doppler on 12/09/2024 negative for DVT. Wound Culture on 12/02/2024 grew Enterococcus faecium. Blood culture negative for any growth. MRSA screening negative. Respiratory culture negative for any growth. ECHO 2D on 12/02/2024 revealed LVEF 60%, mild TR, impaired diastolic relaxation, counseling LVH. Mild left atrial enlargement, RVH. Patient was extubated on 12/13/24. Patient was transferred to the floor on telemetry on 12/15/24. On 12/15/24 patient was retaining carbon dioxide again and was put on BiPAP and patient gradually improved, BiPAP was remove on 0 12/16/24 in the morning. 12/16/2024- Patient was seen today for clinical evaluation. Labs and charts reviewed. Patient had negative IO balance around 725 Patient is noncompliant with the treatment, patient was counseled about the importance of BiPAP overnight to avoid hyperkalemia. Patient with leukocytosis, WBC trending 17.5>16.3>16.5> 20.8> 16.5, status post IV antibiotic -Platelate trending down, 240>200>207>272>246>190 >124> 135> 98, status post linezolid, continue monitoring CBC ABG today revealed pH 7.267, pCO2 58.8, PO2 278.2, bicarbonate 26.2 Plan Is to keep patient's oxygen saturation 88-90%, NC O2 1-2 L max. Provider called and spoke to Stacy for [phone], answered her question and informed patient's current medical condition and plan of care. Continue BiPAP at night from 10:00 p.m. to 6:00 a.m. with a setting of 15/ [address] Santana Plan is to discharge patient to SNF for physical therapy As per social service not-social service wrote"Follow up with Joselyn with [facility] no beds at this time." Objective vital signs Vital Sign Date Time Temp Pulse Resp B/P (MAP) Pulse Ox O2 Delivery O2 Flow Rate FiO2 12/19/24 10:04 96 18 100 12/19/24 09:55 Nasal Cannula* 2 28 12/19/24 09:32 133/60 12/19/24 09:00 98.9 98.9 Total Intake and Output 12/18/24 12/18/24 12/19/24 15:00 23:00 07:00 Intake Total 375 ml 650 ml Output Total 1050 ml 700 ml Balance -675 ml -50 ml medications Current Medications Medications Dose Ordered Sig/Oswaldo Route Start Time Stop Time Status Last Admin Dose Admin Acetaminophen 650 mg Q6HP PRN PO 12/01/24 22:30 12/01/24 23:34 650 MG Pantoprazole Sodium 40 mg DAILY IV 12/01/24 22:45 12/19/24 09:32 40 MG Ipratropium [place] 0.5 mg Q4HWA NEB 12/03/24 06:00 12/19/24 09:55 0.5 MG Albuterol 2.5 mg Q4HWA NEB 12/03/24 06:00 12/19/24 09:55 2.5 MG Albuterol 2.5 mg Q3HPRN PRN NEB 12/03/24 01:15 12/06/24 01:57 2.5 MG Polyethylene Glycol 17 gm DAILY PO 12/04/24 10:00 12/17/24 10:25 17 GM Sennosides 17.2 mg HS PO 12/03/24 22:00 12/18/24 22:21 17.2 MG Hydralazine HCl 10 mg Q6HP PRN IV 12/06/24 20:30 12/12/24 00:22 10 MG Budesonide 0.5 mg BID NEB 12/07/24 10:00 12/19/24 05:24 0.5 MG Ondansetron HCl 4 mg Q6HPRN PRN IV 12/07/24 11:45 12/14/24 06:06 4 MG Sodium Chloride 10 ml QSHIFT@10,22 IV 12/08/24 22:00 12/19/24 09:38 10 ML Furosemide 20 mg DAILY IV 12/15/24 10:00 12/19/24 09:32 20 MG Methylprednisolone Sodium Succinate 40 mg BID IV 12/14/24 22:00 12/19/24 09:32 40 MG Quetiapine Fumarate 50 mg DAILY PO 12/17/24 10:00 12/19/24 09:31 50 MG Examination Neurology: Awake, alert, oriented Respiratory: Bilateral lung crackles+, wheezing+ Cardiovascular: Regular rate, Normal S1, Normal S2 Abdominal: hyperactive bowel sounds, abdomen distended, open wound in lower abdomen. Extremities: No cyanosis, No edema, Normal pulses Skin: Lower extremity plaque psoriasis, red patches with silvery scales.open wound in and sacrum and left buttock.no purulent fluid draining. laboratory and microbiology Laboratory Tests 12/19/24 05:14 Test 12/19/24 05:14 Range/Units Serum Glucose 137 H 74-106 mg/dL Microbiology Date/Time Source Procedure Growth Status 12/02/24 16:30 Nose MRSA Screen - Final Complete 12/01/24 13:20 Blood Blood Culture - Final NO GROWTH AFTER 5 DAYS OF INCUBATION. Complete 12/01/24 12:58 Sputum Gram Stain - Final Complete 12/01/24 12:58 Sputum Respiratory Culture - Final Complete Problem List/Assessment/Plan Problem List/Assessment/Plan Neurology # acute metabolic encephalopathy likely due to acute hypoxic respiratory failure/sepsis -patient was extubated today on 12/13/24 #Anxiety, -following extubation patient was put on BiPAP breeze, tolerated well, following that patient was put on mask and saturating well -no sedatives Cardiovascular # Septic shock # Possible acute on chronic diastolic heart failure 60% EF # Aortic atherosclerosis # Hypertension # Mild tricuspid regurgitation # Mild aortic root enlargement. # Left atrial enlargement - not on pressors - Lasix 20 mEq IV q.d. Respiratory # Acute hypercapnic respiratory failure likely due to COPD exacerbation due to Gram-positive/Gram-negative bacterial pneumonia # Pulmonary vascular congestion # COPD exacerbation # Respiratory acidosis,resolved - status post mechanical ventilation -Lasix 20 mg IV daily - Methylprednisolone 40 mg IV bid. - Albuterol neb - Ipratropium neb -BiPAP at night from 10:00 p.m. to 6:00 a.m. with a setting of 15/5 GI #Acute abdominal distention likely due to constipation -status post Manual disimpaction Plan is to do a swallow evaluation today -Lactulose 30cc BID /renal #hypokalemia-replenished #Dehydration # high BUN/Cr ratio #Palacios catheter since 12/01 #Uterine fibroids #Infectious disease # Septic shock likely due to Gram-positive/Gram-negative bacterial pneumonia # Skin abscess positive for E.Faecium -status post linezolid and cefepime Heme/Onc Normocytic normochromic anemia ---Platelate trending down, 240>200>207>272>246>190 >124> 135> 98, status post linezolid, continue monitoring CBC Endocrine #type 1 obesity #metabolic syndrome Skin: #Skin psoriasis #skin abscess likely due to Hydradenitis suppurativa Vasquez II/III - wound culture positive for E.Faecium - iv antibiotics (linezolid and cefepime) - wound care - surgery on board -no surgical intervention at this moment as per surgery GI prophylaxis -IV pantoprazole 40mg daily DVT prophylaxis - SCD Drips: disontinued all drips on 12/13/2024 lines Central line placed on right internal jugular vein on 12/01/24 dc on 12/08/24 PICC line right upper arm on 12/08/24 Palacios catheter since 12/01 Periphereal line 12/[address] ET- since 12/01/2024 Goals of care/advance care planning Code status, full code PUD prophylaxis: Pantoprazole DVT prophylaxis: SCD Plan discussed with Dr. Campos, nursing staff, patient's daughter Total critical time spent on patient evaluation, chart review, assessment and plan , critical care time was 44 mins Plan discussed with: Patient, Daughter, Other (RN) My Orders My Orders Orders - LETICIA KLEIN Procedure Category Date Status Time Abg W/ Co-Ox RT 12/19/24 Logged 06:46 Dietary Evaluation Review Recommendations by RD: PPN/TPN Comments: 1) If GI route is preferred, consider Jevity 1.2 @ 45 mL/hr goal rate as tolerated. Flush with 200 mL free H2O Q6. Goal rate will provide 1296 kcals, 60g Pro, and 1672 mL H2O (including flushes) per 24 hrs. Goal rate will provide ~ 100% of daily estimated energy requirements and 82% daily estimated protein requirements. 2) Initiate Kyle @ 1 pk bid 3) If patient remains NPO for more than 7 days, consider TPN to meet at least 75% of estimated needs 4) Advance patient diet when medically feasible to cardiac diet 5) Refer to outpatient RD for weight management 6) F/u with pulmonology and cardiology Expected Outcomes/Goals: 1) patient to receive nutrition within 7 days 2) labs and wound to improve 3) diet to advance 4) f/u in 3 days Date of Service: Dec 19, 2024 Billing Provider: TIMOTEO CAMPOS MD Common Visit Codes: [id number] CARE 30-74 MIN LETICIA KLEIN Dec 19, 2024 14:34 TIMOTEO CAMPOS MD Dec 20, 2024 15:38
[2024-12-19 17:57] LABS: Base Excess -1.5 mmol/L (-2.0-3.0)
[2024-12-19] MEDS: methylPREDNISolone SOD SUCC 125 MG/2 ML VL IV SCH (21:28)
[2024-12-20] VITALS (21 sets, daily range): BP systolic 104–139; BP diastolic 55–72; PULSE 83–109; RESP 16–20; TEMP 97.7–98.8; O2SAT 95–100
[2024-12-20 05:27] LABS: Basophils # (auto) 0 10 ^3/uL (0-0.2); Basophils % (auto) 0.2 % (0.0-2.0); Eosinophils # (auto) 0 10 ^3/uL (0-0.8); Hematocrit 36.2 % (36.0-46.0); Hemoglobin 11.6 g/dL (12.2-16.2); Lymphocytes # (auto) 0.6 10 ^3/uL (0.4-5.4); Lymphocytes % (auto) 3.7 % (10.0-50.0); Mean Corpuscular Hemoglobin 27.9 pg (28.0-32.0); Mean Corpuscular Volume 87.4 fL (80.0-100.0); Monocytes # (auto) 0.5 10 ^3/uL (0-1.3); Monocytes % (auto) 3.1 % (0.0-12.0); Neutrophils # (auto) 16.2 10 ^3/uL (1.6-8.6); Platelet Count (auto) 112 10^3/uL (140-450); Red Blood Cells 4.15 10^6/uL (4.0-5.20); Red Cell Distribution Width 18.9 % (11.8-14.3); White Blood Cell 17.4 10^3/uL (4.4-10.8)
[2024-12-20 05:30] LABS: Chloride 103 mmol/L (98-107); Potassium 4.4 mmol/L (3.5-5.1); Sodium 141 mmol/L (136-145)
[2024-12-20 05:31] LABS: Anion Gap 6 (5-15)
[2024-12-20 05:36] LABS: BUN/Creatinine Ratio 30.6 (10.0-20.0); Blood Urea Nitrogen 22 mg/dL (9-23)
[2024-12-20 05:37] LABS: Carbon Dioxide 32 mmol/L (20-31)
[2024-12-20 05:38] LABS: Calcium 11.3 mg/dL (8.7-10.4); Glucose 156 mg/dL (74-106)
--- NOTE | 2024-12-20 18:11 | DVHPNRES ---
Progress Note Date Seen: Dec 20, 2024 Resident Creating Document: LETICIA KLEIN RESIDENT Has the PT tested + for MRSA If YES, has PT been informed?: No Medical Necessity Reason Pt with a Central, PICC or Fol: Yes The following are medically ne: PICC Line, Palacios Catheter Reason for palacios catheter: Strict I&O, Total Immobilization Subjective Review of Systems HPI-patient is 64-year-old female patient with past medical history of COPD, heart failure, asthma, anxiety, depression, panic attacks, psoriasis , patient was brought to the hospital on December 01 with a chief complaint of shortness of breaths for the past 5 days before admission, she was started on breathing treatments, at the time BS was noted to be on 190s and patient was lethargic, tachypneic and tachycardic, per family patient had flu symptoms a couple of days prior to admission, ABG at that time showed marked respiratory acidosis with pCO2 on the 170s, in the ER they decided for intubation. Laboratory results showed leukocytosis, anemia with a hemoglobin at 9 and BNP in the 40s, the patient was started antibiotics and echocardiogram was ordered (60% ejection fraction), regarding other medications on admission patient received med neb, hydrocortisone, cefepime and vancomycin other than the pressors and sedative drips. CXR on 12/01/[address] abdomen revealed-1. There is no acute process in the abdomen and pelvis.2. Moderate amount of stool in the colon. On 12/01/2024 no acute intracranial process. CT angio on . No pulmonary embolism.2. Mild patchy airspace disease in the lung bases. Infectious/inflammatory process is not excluded. Septal thickening suggest fluid overload. Mediastinal and hilar lymphadenopathy. Clinical correlation and continued follow-up is recommended. Extremity arterial Doppler on 12/09/2024-Nonspecific mild elevation in velocities of the right brachial artery, right ulnar artery, left axillary artery and left brachial artery. Multiphasic arterial waveforms are present. extremity Doppler on 12/09/2024 negative for DVT. Wound Culture on 12/02/2024 grew Enterococcus faecium. Blood culture negative for any growth. MRSA screening negative. Respiratory culture negative for any growth. ECHO 2D on 12/02/2024 revealed LVEF 60%, mild TR, impaired diastolic relaxation, counseling LVH. Mild left atrial enlargement, RVH. Patient was extubated on 12/13/24. Patient was transferred to the floor on telemetry on 12/15/24. On 12/15/24 patient was retaining carbon dioxide again and was put on BiPAP and patient gradually improved, BiPAP was remove on 0 12/16/24 in the morning. 12/20/2024- Patient was seen today for clinical evaluation. Labs and charts reviewed. Patient reported feeling much better today Patient had negative IO balance around 825 Chest patient's Lasix from IV to oral form and methylprednisolone discontinued, ordered prednisolone 40 mg p.o. daily Patient is noncompliant with the treatment, patient was counseled about the importance of BiPAP overnight to avoid hypercapnia Patient with leukocytosis, WBC trending 17.5>16.3>16.5> 20.8> 16.5> 17.4, status post IV antibiotic -Platelate trending UP TODAY, 240>200>207>272>246>190 >124> 135> 98>112, status post linezolid, continue monitoring CBC ABG today revealed pH 7.267, pCO2 58.8, PO2 278.2, bicarbonate 26.2 Plan Is to keep patient's oxygen saturation 88-90%, NC O2 1-2 L max. Provider called and spoke to Stacy, for [phone], answered her question and informed patient's current medical condition and plan of care. Continue BiPAP at night from 10:00 p.m. to 6:00 a.m. with a setting of 15/ 5 Plan is to discharge patient to SNF for physical therapy tomorrow [facility] in [place] Objective vital signs Vital Sign Date Time Temp Pulse Resp B/P (MAP) Pulse Ox O2 Delivery O2 Flow Rate FiO2 12/20/24 17:00 98.7 87 16 135/59 (84) 95 98.7 12/20/24 14:21 Nasal Cannula* 2 28 Total Intake and Output 12/19/24 12/19/24 12/20/24 15:00 23:00 07:00 Intake Total 600 ml 750 ml Output Total 1800 ml 375 ml Balance -1200 ml 375 ml medications Current Medications Medications Dose Ordered Sig/Oswaldo Route Start Time Stop Time Status Last Admin Dose Admin Acetaminophen 650 mg Q6HP PRN PO 12/01/24 22:30 12/01/24 23:34 650 MG Ipratropium [place] 0.5 mg Q4HWA NEB 12/03/24 06:00 12/20/24 14:18 0.5 MG Albuterol 2.5 mg Q4HWA NEB 12/03/24 06:00 12/20/24 14:18 2.5 MG Albuterol 2.5 mg Q3HPRN PRN NEB 12/03/24 01:15 12/06/24 01:57 2.5 MG Polyethylene Glycol 17 gm DAILY PO 12/04/24 10:00 12/17/24 10:25 17 GM Sennosides 17.2 mg HS PO 12/03/24 22:00 12/19/24 21:28 17.2 MG Hydralazine HCl 10 mg Q6HP PRN IV 12/06/24 20:30 12/12/24 00:22 10 MG Budesonide 0.5 mg BID NEB 12/07/24 10:00 12/20/24 09:47 0.5 MG Ondansetron HCl 4 mg Q6HPRN PRN IV 12/07/24 11:45 12/14/24 06:06 4 MG Sodium Chloride 10 ml QSHIFT@10,22 IV 12/08/24 22:00 12/20/24 09:27 10 ML Quetiapine Fumarate 50 mg DAILY PO 12/17/24 10:00 12/20/24 09:25 50 MG Prednisone 40 mg DAILY PO 12/21/24 10:00 Furosemide 40 mg DAILY PO 12/21/24 10:00 Losartan Potassium 50 mg DAILY PO 12/21/24 10:00 Venlafaxine HCl 37.5 mg DAILY PO 12/21/24 10:00 Examination Neurology: Awake, alert, oriented Respiratory: Bilateral lung crackles+, wheezing+ Cardiovascular: Regular rate, Normal S1, Normal S2 Abdominal: hyperactive bowel sounds, abdomen distended, open wound in lower abdomen. Extremities: No cyanosis, No edema, Normal pulses Skin: Lower extremity plaque psoriasis, red patches with silvery scales.open wound in and sacrum and left buttock.no purulent fluid draining. laboratory and microbiology Laboratory Tests 12/20/24 04:55 Test 12/20/24 04:55 Range/Units Serum Glucose 156 H 74-106 mg/dL Microbiology Date/Time Source Procedure Growth Status 12/02/24 16:30 Nose MRSA Screen - Final Complete 12/01/24 13:20 Blood Blood Culture - Final NO GROWTH AFTER 5 DAYS OF INCUBATION. Complete 12/01/24 12:58 Sputum Gram Stain - Final Complete 12/01/24 12:58 Sputum Respiratory Culture - Final Complete Problem List/Assessment/Plan Problem List/Assessment/Plan Neurology # acute metabolic encephalopathy likely due to acute hypoxic respiratory failure/sepsis -patient was extubated today on 12/13/24 #Anxiety, -following extubation patient was put on BiPAP breeze, tolerated well, following that patient was put on mask and saturating well -no sedatives Cardiovascular # Septic shock # Possible acute on chronic diastolic heart failure 60% EF # Aortic atherosclerosis # Hypertension # Mild tricuspid regurgitation # Mild aortic root enlargement. # Left atrial enlargement - Lasix 40 mg p.o. daily Respiratory # Acute hypercapnic respiratory failure likely due to COPD exacerbation due to Gram-positive/Gram-negative bacterial pneumonia # Pulmonary vascular congestion # COPD exacerbation # Respiratory acidosis,resolved - status post mechanical ventilation -Lasix 20 mg IV daily - prednisolone 40 mg p.o. daily - Albuterol neb - Ipratropium neb -BiPAP at night from 10:00 p.m. to 6:00 a.m. with a setting of 15/5 GI #Acute abdominal distention likely due to constipation -status post Manual disimpaction Plan is to do a swallow evaluation today -Lactulose 30cc BID /renal #hypokalemia-replenished #Dehydration # high BUN/Cr ratio #Palacios catheter since 12/01 #Uterine fibroids #Infectious disease # Septic shock likely due to Gram-positive/Gram-negative bacterial pneumonia # Skin abscess positive for E.Faecium -status post linezolid and cefepime Heme/Onc Normocytic normochromic anemia ---Platelate trend 240>200>207>272>246>190 >124> 135> 98>112, status post linezolid, continue monitoring CBC Endocrine #type 1 obesity #metabolic syndrome Skin: #Skin psoriasis #skin abscess likely due to Hydradenitis suppurativa Vasquez II/III - wound culture positive for E.Faecium - status post iv antibiotics (linezolid and cefepime) - wound care - status post surgery consult -no surgical intervention at this moment as per surgery GI prophylaxis -IV pantoprazole 40mg daily DVT prophylaxis - SCD Drips: disontinued all drips on 12/13/2024 lines Central line placed on right internal jugular vein on 12/01/24 dc on 12/08/24 PICC line right upper arm on 12/08/24 Palacios catheter since 12/01 Periphereal line 12/[address] ET- since 12/01/2024 Goals of care/advance care planning Code status, full code- time spent 21 mins PUD prophylaxis: Pantoprazole DVT prophylaxis: SCD Plan discussed with Dr. Campos, nursing staff, patient's daughter Plan discussed with: Patient, Daughter, Other (RN) Dietary Evaluation Review Recommendations by RD: PPN/TPN Comments: 1) If GI route is preferred, consider Jevity 1.2 @ 45 mL/hr goal rate as tolerated. Flush with 200 mL free H2O Q6. Goal rate will provide 1296 kcals, 60g Pro, and 1672 mL H2O (including flushes) per 24 hrs. Goal rate will provide ~ 100% of daily estimated energy requirements and 82% daily estimated protein requirements. 2) Initiate Kyle @ 1 pk bid 3) If patient remains NPO for more than 7 days, consider TPN to meet at least 75% of estimated needs 4) Advance patient diet when medically feasible to cardiac diet 5) Refer to outpatient RD for weight management 6) F/u with pulmonology and cardiology Expected Outcomes/Goals: 1) patient to receive nutrition within 7 days 2) labs and wound to improve 3) diet to advance 4) f/u in 3 days Date of Service: Dec 20, 2024 Billing Provider: TIMOTEO CAMPOS MD Common Visit Codes: [id number] INP/OBS CARE(HIGH) Secondary Visit Codes: [id number] CARE PLAN 30 MINUTES LETICIA KLEIN RESIDENT Dec 20, 2024 18:11 TIMOTEO CAMPOS MD Dec 21, 2024 14:01
[2024-12-21] VITALS (10 sets, daily range): BP systolic 110–122; BP diastolic 54–69; PULSE 63–115; RESP 16–20; TEMP 98.4–98.8; O2SAT 94–100
[2024-12-21 05:39] LABS: Basophils # (auto) 0 10 ^3/uL (0-0.2); Basophils % (auto) 0.1 % (0.0-2.0); Eosinophils # (auto) 0.1 10 ^3/uL (0-0.8); Eosinophils % (auto) 0.9 % (0.0-7.0); Hematocrit 37.1 % (36.0-46.0); Hemoglobin 11.5 g/dL (12.2-16.2); Lymphocytes # (auto) 1.5 10 ^3/uL (0.4-5.4); Lymphocytes % (auto) 13.1 % (10.0-50.0); Mean Corpuscular Hemoglobin 27.2 pg (28.0-32.0); Mean Corpuscular Volume 87.7 fL (80.0-100.0); Monocytes # (auto) 0.7 10 ^3/uL (0-1.3); Neutrophils # (auto) 9.3 10 ^3/uL (1.6-8.6); Neutrophils % (auto) 79.9 % (37.0-80.0); Platelet Count (auto) 92 10^3/uL (140-450); Red Blood Cells 4.23 10^6/uL (4.0-5.20); White Blood Cell 11.7 10^3/uL (4.4-10.8)
[2024-12-21 05:54] LABS: Anion Gap 4 (5-15); Chloride 104 mmol/L (98-107); Sodium 142 mmol/L (136-145)
[2024-12-21 06:00] LABS: BUN/Creatinine Ratio 36.1 (10.0-20.0); Blood Urea Nitrogen 22 mg/dL (9-23)
[2024-12-21 06:05] LABS: Calcium 11.2 mg/dL (8.7-10.4); Carbon Dioxide 34 mmol/L (20-31); Glucose 111 mg/dL (74-106); Potassium 3.4 mmol/L (3.5-5.1)
--- NOTE | 2024-12-21 07:09 | DVH ---
EXAM: XR Chest, 1 View CLINICAL INDICATION: PNA, HF TECHNIQUE: Frontal view of the chest. COMPARISON: XY CHEST PORTABLE on DOS: 12/16/24, XY CHEST PORTABLE on DOS: 12/15/24, XY CHEST PORTABLE on DOS: 12/14/24, XY CHEST PORTABLE on DOS: 12/13/24, XY CHEST PORTABLE on DOS: 12/13/24 FINDINGS: LUNGS AND PLEURAL SPACES: Mild pulmonary congestion. No consolidation. No pneumothorax. HEART: Unremarkable. No cardiomegaly. MEDIASTINUM: Unremarkable. Normal mediastinal contour. BONES/JOINTS: Unremarkable. No acute fracture. TUBES, LINES AND DEVICES: Right peripherally inserted central catheter (PICC) tip in the superior v risa cava. OTHER FINDINGS: . IMPRESSION: Mild pulmonary congestion.
--- NOTE | 2024-12-21 09:39 | DVHDSRES ---
Discharge Summary Date of Admission Resident Creating Document: LETICIA KLEIN RESIDENT Dec 01, 2024 at 21:29 Date of Discharge: Dec 21, 2024 Admitting Diagnosis # Acute hypercapnic respiratory failure likely due to COPD exacerbation due to Gram-positive/Gram-negative bacterial pneumonia # acute metabolic encephalopathy likely due to acute hypoxic respiratory failure/sepsis Labs/Diagnostic Data: Laboratory Results Test 12/21/24 05:05 12/19/24 10:08 12/19/24 05:14 12/17/24 07:58 White Blood Count 11.7 10^3/uL (4.4-10.8) Red Blood Count 4.23 10^6/uL (4.0-5.20) Hemoglobin 11.5 g/dL (12.2-16.2) Hematocrit 37.1 % (36.0-46.0) Mean Corpuscular Volume 87.7 fL (80.0-100.0) Mean Corpuscular Hemoglobin 27.2 pg (28.0-32.0) Mean Corpuscular Hemoglobin Concent 31.0 g/dL (32.0-36.0) Red Cell Distribution Width 19.0 % (11.8-14.3) Platelet Count 92 10^3/uL (140-450) Mean Platelet Volume 8.7 fL (6.9-10.8) Neutrophils (%) (Auto) 79.9 % (37.0-80.0) Lymphocytes (%) (Auto) 13.1 % (10.0-50.0) Monocytes (%) (Auto) 6.0 % (0.0-12.0) Eosinophils (%) (Auto) 0.9 % (0.0-7.0) Basophils (%) (Auto) 0.1 % (0.0-2.0) Neutrophils # (Auto) 9.3 10 ^3/uL (1.6-8.6) Lymphocytes # (Auto) 1.5 10 ^3/uL (0.4-5.4) Monocytes # (Auto) 0.7 10 ^3/uL (0-1.3) Eosinophils # (Auto) 0.1 10 ^3/uL (0-0.8) Basophils # (Auto) 0 10 ^3/uL (0-0.2) Nucleated Red Blood Cells 0.0 % Sodium Level 142 mmol/L (136-145) Potassium Level 3.4 mmol/L (3.5-5.1) Chloride Level 104 mmol/L (98-107) Carbon Dioxide Level 34 mmol/L (20-31) Anion Gap 4 (5-15) Blood Urea Nitrogen 22 mg/dL (9-23) Creatinine 0.61 mg/dL (0.550-1.02) Glomerular Filtration Rate Calc 99 mL/min (>90) BUN/Creatinine Ratio 36.1 (10.0-20.0) Serum Glucose 111 mg/dL (74-106) Calcium Level 11.2 mg/dL (8.7-10.4) Blood Gas Specimen Type Arterial Blood Gas Sample Site Left radial Blood Gas Patient Temperature 37.0 Arterial Blood Date Drawn [id number] Arterial Blood pH 7.267 (7.350-7.450) Arterial Blood Partial Pressure CO2 58.8 mmHg (32.0-45.0) Arterial Blood Partial Pressure O2 278.2 mmHg (83.0-108.0) Arterial Blood HCO3 26.2 mmol/L (21.0-28.0) Arterial Blood Oxygen Saturation 99.5 % (94.0-98.0) Arterial Blood Base Excess -1.5 mmol/L (-2.0-3.0) Arterial Blood Oxyhemoglobin 98.3 % (94.0-98.0) Arterial Blood Carboxyhemoglobin 0.8 % (0.5-1.5) Arterial Blood Methemoglobin 0.4 % (0.0-1.5) Drake Test Yes Blood Gas Total Hemoglobin 11.60 g/dL (12.0-16.0) Blood Gas Liter Flow 8.00 Blood Gas Modality Mask - simple FiO2 % 50.0 Total Bilirubin 0.4 mg/dL (0.2-1.0) Aspartate Amino Transferase (AST) 13 U/L (13-40) Alanine Aminotransferase (ALT) 27 U/L (7-40) Alkaline Phosphatase 55 U/L (46-116) Total Protein 7.4 g/dL (5.7-8.2) Albumin 4.6 g/dL (3.2-4.8) Blood Gas Critical Value Read Back Yes Blood Gas Notified Whom Dr. duque Blood Gas Notified Time [id number] Blood Gas Notified By Test 12/17/24 07:29 12/16/24 07:24 12/15/24 14:52 12/13/24 09:59 Magnesium Level 2.4 mg/dL (1.6-2.6) Blood Gas EPAP 5 Blood Gas IPAP 15 Blood Gas Set Respiration Rate 16.0 Blood Gas Spontaneous Rate 20 Blood Gas Spontaneous Tidal Volume 573 Blood Gas Pressure Support 8 Blood Gas PEEP or CPAP 5.0 Test 12/12/24 06:13 12/11/24 03:25 12/10/24 07:30 12/08/24 13:05 Blood Gas Tidal Volume 450.0 Differential Total Cells Counted 100.0 (100) Neutrophils % (Manual) 86 (37.0-80.0) Band Neutrophils % (Manual) 4 Lymphocytes % (Manual) 7 (10.0-50.0) Monocytes % (Manual) 2 (0-12) Eosinophils % (Manual) 0 (0-7) Basophils % (Manual) 0 (0.0-2.0) Metamyelocytes % (manual) 1 Myelocytes % (Manual) 0 Promyelocytes % (Manual) 0 Blast Cells % (Manual) 0 Reactive Lymphocytes 0 Platelet Estimate Adequate Hypochromasia (manual) Slight Anisocytosis (manual) Slight Prothrombin Time 10.9 sec (9.3-11.8) Prothrombin Time INR 1.03 (0.9-1.15) Activated Partial Thromboplast Time 25.0 SEC (24.5-34.5) Test 12/08/24 12:42 12/05/24 21:03 12/05/24 16:10 12/05/24 03:22 Blood Gas Inspiratory Pressure 42.0 Bl Gas Inspiratory/Expiratory Ratio 1:2.3 Specimen Drawn By fito nixon Vancomycin Level Trough 10.6 ug/mL (5-10) Iron Level 24 ug/dL (50-170) Total Iron Binding Capacity 260 ug/dL (250-425) Percent Iron Saturation 9.2 % (15-50) Phosphorus Level 4.6 mg/dL (2.4-5.1) Direct Bilirubin < 0.1 mg/dL (<0.3) Test 12/04/24 03:28 12/03/24 03:01 12/02/24 16:30 12/01/24 22:28 Lactic Acid Level 1.0 mmol/L (0.4-2.0) Random Vancomycin Level 9.3 ug/mL (5-10) Influenza Type A Antigen Negative (Negative) Influenza Type B Antigen Negative (Negative) SARS-CoV-2 Antigen (Rapid) Negative (NEGATIVE) D-Dimer, Quantitative 1.64 mg/L FEU (0.0-0.49) Hemoglobin A1c 5.1 % A1C (<5.7) Test 12/01/24 15:39 12/01/24 12:55 12/01/24 12:30 Troponin I High Sensitivity 26 ng/L (</=34) Triglycerides Level 118 mg/dL (< 150) Cholesterol Level 193 mg/dL (< 200) LDL Cholesterol 110 mg/dL (< 100) HDL Cholesterol 56 mg/dL (40-59) Urine Color Light-yellow (Yellow) Urine Clarity Clear (Clear) Urine pH 6.0 (5.0-9.0) Urine Specific [place] 1.018 (1.001-1.035) Urine Protein 1+ (Negative) Urine Ketones Negative (Negative) Urine Blood Negative /uL (Negative) Urine Nitrite Negative (Negative) Urine Bilirubin Negative (Negative) Urine Urobilinogen Normal mg/dL (Negative) Urine Leukocyte Esterase Negative /uL (Negative) Urine RBC 1 /hpf (0 - 4) Urine Microscopic WBC 1 /HPF (0-5) Urine Squamous Epithelial Cells Few /hpf (<5) Urine Bacteria None seen /hpf (None Seen) Urine Hyaline Casts Few /lpf (0 - 2) Urine Mucus Few (None Seen) Urine Glucose Normal mg/dL (Normal) B-Type Natriuretic Peptide 42.90 pg/mL (0-100) Other Laboratory Tests 12/21/24 05:05 Brief Hx & Hospital Course: HPI-patient is 64-year-old female patient with past medical history of COPD, heart failure, asthma, anxiety, depression, panic attacks, psoriasis , patient was brought to the hospital on December 01 with a chief complaint of shortness of breaths for the past 5 days before admission, she was started on breathing treatments, at the time BS was noted to be on 190s and patient was lethargic, tachypneic and tachycardic, per family patient had flu symptoms a couple of days prior to admission, ABG at that time showed marked respiratory acidosis with pCO2 on the 170s, in the ER they decided for intubation. Laboratory results showed leukocytosis, anemia with a hemoglobin at 9 and BNP in the 40s, the patient was started antibiotics and echocardiogram was ordered (60% ejection fraction), regarding other medications on admission patient received med neb, hydrocortisone, cefepime and vancomycin other than the pressors and sedative drips. CXR on 12/01/[address] abdomen revealed-1. There is no acute process in the abdomen and pelvis.2. Moderate amount of stool in the colon. On 12/01/2024 no acute intracranial process. CT angio on . No pulmonary embolism.2. Mild patchy airspace disease in the lung bases. Infectious/inflammatory process is not excluded. Septal thickening suggest fluid overload. Mediastinal and hilar lymphadenopathy. Clinical correlation and continued follow-up is recommended. Extremity arterial Doppler on 12/09/2024-Nonspecific mild elevation in velocities of the right brachial artery, right ulnar artery, left axillary artery and left brachial artery. Multiphasic arterial waveforms are present. extremity Doppler on 12/09/2024 negative for DVT. Wound Culture on 12/02/2024 grew Enterococcus faecium. Blood culture negative for any growth. MRSA screening negative. Respiratory culture negative for any growth. ECHO 2D on 12/02/2024 revealed LVEF 60%, mild TR, impaired diastolic relaxation, counseling LVH. Mild left atrial enlargement, RVH. Patient was treated with the IV antibiotic with a good outcome. Patient was seen by surgeon for hidradenitis at the axilla and surgeon recommended for conservative management with the antibiotic. No surgery recorded at this time. Patient was extubated on 12/13/24. Patient was transferred to the floor on telemetry on 12/15/24. On 12/15/24 patient was retaining carbon dioxide again and was put on BiPAP and patient gradually improved, BiPAP was remove on 0 12/16/24 in the morning. Following that patient was put on BiPAP at night from 10:00 p.m. to 6:00 a.m. but patient was noncompliant with the treatment. Patient's symptom improved gradually patient is more awake and alert. Tolerated physical therapy well. Patient is being discharged to SNF for physical therapy. Patient was hemodynamically stable on discharge. Patient patient is to follow up with the MD at the SNF. Total time spent in clinical assessment, chart review, discharge planning and discussing with the patient and family> 30 minutes Operations or Procedures [place] [address] Ph: [phone] DIAGNOSTIC IMAGING Diagnostic Imaging Report : [id number] Signed PATIENT: SONU GUPTAACCT: [id number] UNIT: [id number] : 1960 LOC: ER ROOM / BED: / AGE / SEX: 64 / F ADM STATUS: REG ER SERVICE 1200 ORDERING PHYSICIAN: KEVIN HESTER MD PROCEDURE(s): CXRP - CHEST PORTABLE REASON: sob ORDER NUMBER(s): [id number], ACCESSION NUMBER(s): [id number] CHEST RADIOGRAPH Indication: sob Technique: Single frontal view of the chest was obtained Comparison: None FINDINGS: Lines and Tubes: None Lungs: Bibasilar airspace opacities. Pleura: No effusion. No pneumothorax. Cardiomediastinal contours: Unremarkable Bones: No acute osseous abnormality. IMPRESSION: Bibasilar airspace opacities. ATED BY: JANINE NORRIS MD DICTATED DATE/TIME: 12/01/24 1241 SIGNED BY: JANINE NORRIS MD SIGNED DATE/TIME: 12/01/24 1241 CC: [place] [id number] Ph: [phone] DIAGNOSTIC IMAGING Diagnostic Imaging Report : [id number] Signed PATIENT: SONU GUPTA FACCT: [id number] UNIT: [id number] : 1960 LOC: ER ROOM / BED: / AGE / SEX: 64 / F ADM STATUS: REG ER SERVICE 1331 ORDERING PHYSICIAN: KEVIN HESTER MD PROCEDURE(s): ABPL - CT AB PEL WO CON-NO ORAL OR IV REASON: abd pain ORDER NUMBER(s): [id number], ACCESSION NUMBER(s): [id number] CT ABDOMEN AND PELVIS WITHOUT CONTRAST CLINICAL HISTORY: abd pain TECHNIQUE: Multiple contiguous axial images of the abdomen and pelvis without intravenous contrast. The images were reformatted degenerate coronal and sagittal reconstructions. All CT scans at this medical facility are performed using dose modulation techniques as appropriate to a performed exam including the following:Automated exposure control was utilized; adjustment of the MA and/or KV according to patient size; and use of iterative reconstruction technique. Radiation Dose Information: CT Dose: CTDI volume is 20 mGy. Dose-length product is 937 mGy*cm Comparison: None FINDINGS: Evaluation of the abdomen and pelvis is limited without intravenous contrast. The liver, gallbladder, pancreas, kidneys, adrenal glands, and spleen appear within normal limits. There is no gross evidence of abdominal lymphadenopathy. There is no free fluid or free air. There is an NG tube terminating in the stomach. The stomach grossly appears unremarkable. The small and large bowel loops demonstrate normal caliber. There is moderate amount of stool in the colon. The appendix is not seen in the right lower quadrant. There are no secondary signs of acute appendicitis. There are calcified atherosclerotic changes in the abdominal aorta. The IVC appears within normal limits There is a Cavazos catheter in the bladder which is decompressed. The uterus appears lobular which May relate to fibroid changes. There is no gross evidence of a pelvic mass. There is no free fluid collection. There is parenchymal scarring in the visualized lung bases. There is no acute osseous abnormality. IMPRESSION: 1. There is no acute process in the abdomen and pelvis. 2. Moderate amount of stool in the colon. HS:Y ATED BY: YAEL MI MD DICTATED DATE/TIME: 12/01/241649 SIGNED BY: YAEL MI MD SIGNED DATE/TIME: 12/01/241649 CC: [place] [address] Ph: [phone] DIAGNOSTIC IMAGING Diagnostic Imaging Report : [id number] Signed PATIENT: SONU GUPTA FACCT: [id number] UNIT: [id number] : 1960 LOC: ER ROOM / BED: / AGE / SEX: 64 / F ADM STATUS: REG ER SERVICE 1331 ORDERING PHYSICIAN: KEVIN HESTER MD PROCEDURE(s): HWOCT - HEAD WITHOUT CONTRAST REASON: aloc ORDER NUMBER(s): [id number], ACCESSION NUMBER(s): [id number] EXAM: CT HEAD WITHOUT CONTRAST HISTORY: aloc COMPARISON: None TECHNIQUE: Axial images of the head were obtained and reformatted in coronal and sagittal planes. All CT scans at this medical facility are performed using dose modulation techniques as appropriate to a performed exam including the following: Automated exposure control was utilized; adjustment of the MA and/or KV according to patient size; and use of iterative reconstruction technique. CT Dose: CTDI volume is 60 mGy. Dose-length product is 1059 mGy*cm FINDINGS: There is no evidence of acute intracranial hemorrhage, mass, mass effect midline shift. There is no hydrocephalus or extra-axial fluid collection. There are patchy hypodense areas in the supratentorial white matter compatible with chronic small-vessel ischemic changes De [place]-white matter differentiation is maintained. The visualized paranasal sinuses and mastoid air cells are clear. The calvarium is intact. IMPRESSION: 1. No acute intracranial process. HS:Y ATED BY: YAEL MI MD DICTATED DATE/TIME: 12/01/241643 SIGNED BY: YAEL MI MD SIGNED DATE/TIME: 12/01/241643 CC: [place] [address] Ph: [phone] DIAGNOSTIC IMAGING Diagnostic Imaging Report : [id number] Signed PATIENT: SONU GUPTA FACCT: [id number] UNIT: [id number] : 1960 LOC: ER ROOM / BED: / AGE / SEX: 64 / F ADM STATUS: REG ER SERVICE 183 ORDERING PHYSICIAN: JOSE ARMANDO WAYNE RESIDENT PROCEDURE(s): CXR1 - CHEST XRAY 1 VIEW REASON: CVC insertion ORDER NUMBER(s): [id number], ACCESSION NUMBER(s): [id number] CHEST RADIOGRAPH Indication: CVC insertion Technique: Single frontal view of the chest was obtained Comparison: XY CHEST PORTABLE on DOS: 12/01/24, XY CHEST PORTABLE on DOS: 12/01/24 FINDINGS: Lines and Tubes: Endotracheal tube 3.3 cm above the kaykay. Right internal jugular catheter in place at the cavoatrial junction or just within the right atrium. Enteric tube below the left diaphragm in the stomach Lungs: No focal consolidation. Pleura: No effusion. No pneumothorax. Cardiomediastinal contours: Unremarkable Bones: No acute osseous abnormality. IMPRESSION: 1. Endotracheal tube in place 3.3 cm above the kaykay. 2. Right internal jugular catheter in place at the cavoatrial junction or within the right atrium. 3. Enteric tube below the left diaphragm in the stomach. 4. Findings suggesting pulmonary vascular congestion. HS:Y ATED BY: ALBERT THOMAS Jr., DO DICTATED DATE/TIME: 12/01/241908 SIGNED BY: ALBERT THOMAS Jr., SIGNED DATE/TIME: 12/01/241908 CC: [place] [address] Ph: [phone] DIAGNOSTIC IMAGING Diagnostic Imaging Report : [id number] Signed PATIENT: SONU GUPTA FACCT: [id number] UNIT: [id number] : 1960 LOC: [facility] ROOM / BED: [address] [place] [address] AGE / SEX: 64 / F ADM STATUS: ADM IN SERVICE 3 ORDERING PHYSICIAN: MARILUZ AGUILAR RESIDENT PROCEDURE(s): CTACH - CT ANGIO CHEST CONTRAST REASON: R/O PE ORDER NUMBER(s): [id number], ACCESSION NUMBER(s): [id number] CTA Chest with intravenous contrast INDICATION: R/O PE COMPARISON: None TECHNIQUE: Multidetector spiral CTA of the chest was performed of the chest with intravenous contrast. PULMONARY ANGIOGRAPHY PROTOCOL was utilized using a bolus- tracking technique centered on the main pulmonary artery. Axial, coronal and sagittal multiplanar and MIP reformats were performed. CONTRAST: Type of contrast: Omni 350 Contrast injected: 67 ml Radiation dose : Chest: CTDI volume is 23.48 mGy. Dose-length product is 861.98 mGy*cm The dose indicators for CT are the volume computed Tomography (CT) dose Index (CTDIvol) and the dose Length product (DLP), and are measured in units of mGy and mGy-cm, respectively. These indicators are not patient dose, but values generated from the CT scanner acquisition factors. The report includes radiation exposure data for exposures received during this examination. Findings: Pulmonary artery: No pulmonary embolism Lower neck: Endotracheal tube and nasogastric tube in place. Lungs: Mild patchy consolidation in the lung bases. Mild septal thickening. Heart/Vascular Structures: Normal heart size. No pericardial effusion. Lymph Nodes: Mildly prominent mediastinal and hilar lymph nodes. Pleura: No pleural effusion or significant pneumothorax. Musculoskeletal: No acute osseous abnormality. Soft tissues: Normal. Upper abdomen: Limited portions of the upper abdomen are unremarkable. IMPRESSION: 1. No pulmonary embolism. 2. Mild patchy airspace disease in the lung bases. Infectious/inflammatory process is not excluded. Septal thickening suggest fluid overload. Mediastinal and hilar lymphadenopathy. Clinical correlation and continued follow-up is recommended. HS:Y ATED BY: BON STRANGE MD DICTATED DATE/TIME: 12/02/24 114 SIGNED BY: BON STRANGE MD SIGNED DATE/TIME: 12/02/24 1141 CC: [place] [address] Ph: [phone] DIAGNOSTIC IMAGING Diagnostic Imaging Report : [id number] Signed PATIENT: SONU GUPTA FACCT: [id number] UNIT: [id number] : 1960 LOC: OVERFLOW ROOM / BED: [address] [place] [address] AGE / SEX: 64 / F ADM STATUS: ADM IN SERVICE 1547 ORDERING PHYSICIAN: ALDAIR VILLEGAS RESIDENT PROCEDURE(s): KUB - KUB ABDOMEN SINGLE VIEW REASON: free air in diaphragm ORDER NUMBER(s): [id number], ACCESSION NUMBER(s): [id number] Procedure: XY KUB ABDOMEN SINGLE VIEW Study Date and Requested Time: 12/02/2024 03:53 PM History: free air in diaphragm Technique: 2 views of the abdomen and pelvis available for evaluation. Comparison: None Findings/ Impression: Enteric tube is in satisfactory position. Partially visualized central venous catheter terminating within the proximal right atrium /superior cavoatrial junction. Nonspecific bowel gas pattern. No evidence of bowel obstruction or ileus. Moderate amount of fecal material within the colon. Phleboliths are noted within the pelvis. No evidence of acute bony abnormalities. Bilateral lung bases are clear. ATED BY: DELISA ARZOLA DO DICTATED DATE/TIME: 12/02/241621 SIGNED BY: DELISA ARZOLA DO SIGNED DATE/TIME: 12/02/241621 CC: [place] [address] Ph: [phone] DIAGNOSTIC IMAGING Diagnostic Imaging Report : [id number] Signed PATIENT: SONU GUPTA FACCT: [id number] UNIT: [id number] : 1960 LOC: ICU [place] ROOM / BED: [address] [place] [address] / A AGE / SEX: 64 / F ADM STATUS: ADM IN SERVICE 0400 ORDERING PHYSICIAN: JERRY HANSON MD PROCEDURE(s): CXRP - CHEST PORTABLE REASON: PROTOCOL ORDER NUMBER(s): [id number], ACCESSION NUMBER(s): [id number] CHEST RADIOGRAPH Indication: PROTOCOL Technique: Single frontal view of the chest was obtained Comparison: XY CHEST PORTABLE on DOS: 12/04/24 FINDINGS: Lines and Tubes: The endotracheal tube terminates 4.5 cm above the kaykay. Right central venous catheter terminates in the right atrium. Lungs: Mild bilateral interstitial prominence. Pleura: No effusion. No pneumothorax. Cardiomediastinal contours: Unremarkable Bones: No acute osseous abnormality. IMPRESSION: 1. Bilateral interstitial prominence similar to prior study. ATED BY: MARY BETH SOTO MD DICTATED DATE/TIME: 12/05/24450 SIGNED BY: MARY BETH SOTO MD SIGNED DATE/TIME: 12/05/24450 CC: [address] [address] Ph: [phone] DIAGNOSTIC IMAGING Diagnostic Imaging Report : [id number] Signed PATIENT: SONU GUPTA FACCT: [id number] UNIT: [id number] : 1960 LOC: ICU [place] ROOM / BED: 0101-CC / A AGE / SEX: 64 / F ADM STATUS: ADM IN SERVICE 1626 ORDERING PHYSICIAN: TIMOTEO CAMPOS MD PROCEDURE(s): USGUIVASAC - US Guided Vascular Access REASON: PICC LINE PLACEMENT ORDER NUMBER(s): [id number], ACCESSION NUMBER(s): [id number] Exam: US US GUIDED VASCULAR ACCESS Clinical History: PICC LINE PLACEMENT Comparison: None Findings: Targeted sonographic evaluation of the upper arm veinwas obtained utilizing grayscale and color Doppler imaging. IMPRESSION: Sonographic assistance for central line placement. Please refer to procedural report for detailed findings. ATED BY: KAREL ROMERO MD DICTATED DATE/TIME: 12/09/24519 SIGNED BY: KAREL ROMERO MD SIGNED DATE/TIME: 12/09/24519 CC: [place] [address] Ph: [phone] DIAGNOSTIC IMAGING Diagnostic Imaging Report : [id number] Signed PATIENT: SONU GUPTA FACCT: [id number] UNIT: [id number] : 1960 LOC: [facility] ROOM / BED: [facility] / A AGE / SEX: 64 / F ADM STATUS: ADM IN SERVICE 1057 ORDERING PHYSICIAN: ALDAIR VILLEGAS PROCEDURE(s): BUEAD - Bilat Upper Ext Art Duplex REASON: rule out PAD ORDER NUMBER(s): [id number], ACCESSION NUMBER(s): [id number] Bilateral Upper Extremity Arterial Duplex Clinical History: rule out PAD Comparison: None Technique: Duplex Doppler evaluation including color Doppler and spectral/pulsed waveform analysis of the upper extremity arteries was performed. Findings: RIGHT: Peak systolic velocities are as follows: Subclavian 74 cm/s Axillary 76 cm/s Brachial 123 cm/s Prox Radial 84 cm/s Prox Ulnar 139 cm/s The waveforms are multiphasic. LEFT: Peak systolic velocities are as follows: Subclavian 105 cm/s Axillary 161 cm/s Brachial 197 cm/s Prox Radial 104 cm/s Prox Ulnar 111 cm/s The waveforms are multiphasic. IMPRESSION: Nonspecific mild elevation in velocities of the right brachial artery, right ulnar artery, left axillary artery and left brachial artery. Multiphasic arterial waveforms are present. ATED BY: KAREL ROMERO MD DICTATED DATE/TIME: 12/09/241428 SIGNED BY: KAREL ROMERO MD SIGNED DATE/TIME: 12/09/241428 CC: [place] [address] Ph: [phone] DIAGNOSTIC IMAGING Diagnostic Imaging Report : [id number] Signed with Addwan PATIENT: SONU GUPTA FACCT: [id number] UNIT: [id number] : 1960 LOC: [facility] ROOM / BED: [address] [place] [address] AGE / SEX: 64 / F ADM STATUS: ADM IN SERVICE 105 ORDERING PHYSICIAN: ALDAIR VILLEGAS RESIDENT PROCEDURE(s): BUDVT - Bi Lat Upper DVT REASON: ro dvt ORDER NUMBER(s): [id number], ACCESSION NUMBER(s): [id number] ADDENDUM ADDENDUM # 1 BILATERAL UPPER EXTREMITY VENOUS DOPPLER CLINICAL HISTORY: ro dvt TECHNIQUE: Upper extremity venous Doppler study was performed. Comparison: None FINDINGS: The right and left internal jugular, subclavian, axillary, brachial, basilic, cephalic, radial and ulnar veins appear patent with normal augmentation, phasicity, compressibility and color-flow. IMPRESSION: 1. No sonographic evidence of DVT in the right and left upper extremity. HS:Y ORIGINAL REPORT BILATERAL UPPER EXTREMITY VENOUS DOPPLER CLINICAL HISTORY: ro dvt TECHNIQUE: Upper extremity venous Doppler study was performed. Comparison: None FINDINGS: internal jugular, subclavian, axillary, brachial, basilic, cephalic, radial and ulnar veins appear patent with normal augmentation, phasicity, compressibility and color-flow. IMPRESSION: 1. No sonographic evidence of DVT in the right and left upper extremity. ATED BY: YAEL MI MD DICTATED DATE/TIME: 12/09/24 1458 SIGNED BY: YAEL MI MD SIGNED DATE/TIME: 12/09/24 1458 CC: BILATERAL UPPER EXTREMITY VENOUS DOPPLER CLINICAL HISTORY: ro dvt TECHNIQUE: Upper extremity venous Doppler study was performed. Comparison: None FINDINGS: internal jugular, subclavian, axillary, brachial, basilic, cephalic, radial and ulnar veins appear patent with normal augmentation, phasicity, compressibility and color-flow. IMPRESSION: 1. No sonographic evidence of DVT in the right and left upper extremity. ATED BY: YAEL MI MD DICTATED DATE/TIME: 12/09/24 141 SIGNED BY: YAEL MI MD SIGNED DATE/TIME: 12/09/24 141 CC: [place] [id number] Ph: [phone] DIAGNOSTIC IMAGING Diagnostic Imaging Report : [id number] Signed PATIENT: SONU GUPTA FACCT: [id number] UNIT: [id number] : 1960 LOC: [facility] ROOM / BED: [address] [place] [address] AGE / SEX: 64 / F ADM STATUS: ADM IN SERVICE 0600 ORDERING PHYSICIAN: LETICIA KLEIN RESIDENT PROCEDURE(s): CXRP - CHEST PORTABLE REASON: PNA ORDER NUMBER(s): [id number], ACCESSION NUMBER(s): [id number] EXAM: XR Chest, 1 View CLINICAL INDICATION: PNA TECHNIQUE: Frontal view of the chest. COMPARISON: XY CHEST XRAY 1 VIEW on DOS: 12/12/24, XY CHEST PORTABLE on DOS: 12/11/24, XY CHEST PORTABLE on DOS: 12/10/24, XY CHEST PORTABLE on DOS: 12/09/24, XY CHEST PORTABLE on DOS: 12/08/24 FINDINGS: LUNGS AND PLEURAL SPACES: Mild pulmonary congestion. No consolidation. No pneumothorax. HEART: Unremarkable. No cardiomegaly. MEDIASTINUM: Unremarkable. Normal mediastinal contour. BONES/JOINTS: Unremarkable. No acute fracture. TUBES, LINES AND DEVICES: Right peripherally inserted central catheter (PICC) tip in the superior vena cava. The endotracheal tube (ETT) is in satisfactory position. OTHER FINDINGS: . IMPRESSION: Mild pulmonary congestion. ATED BY: ALICIA NEIL MD DICTATED DATE/TIME: 12/13/24507 SIGNED BY: ALICIA NEIL MD SIGNED DATE/TIME: 12/13/24507 CC: [place] [id number] Ph: [phone] DIAGNOSTIC IMAGING Diagnostic Imaging Report : [id number] Signed PATIENT: SONU GUPTA FACCT: [id number] UNIT: [id number] : 1960 LOC: [facility] ROOM / BED: [address] [place] [address] AGE / SEX: 64 / F ADM STATUS: ADM IN SERVICE 9 ORDERING PHYSICIAN: LOGAN NAVARRO MD PROCEDURE(s): CXR1 - CHEST XRAY 1 VIEW REASON: INTUBATED ORDER NUMBER(s): [id number], ACCESSION NUMBER(s): [id number] CHEST RADIOGRAPH Indication: INTUBATED Technique: Single frontal view of the chest was obtained Comparison: XY CHEST PORTABLE on DOS: 12/11/24 FINDINGS: Lines and Tubes: The endotracheal tube terminates 2.6 cm above the [place]. Right PICC terminates in the superior vena cava. Lungs: Bilateral interstitial opacities. No focal consolidation. Pleura: No effusion. No pneumothorax. Cardiomediastinal contours: Unremarkable Bones: No acute osseous abnormality. IMPRESSION: 1. Bilateral interstitial opacities which may reflect pulmonary congestion. ATED BY: MARY BETH SOTO MD DICTATED DATE/TIME: 12/12/24432 SIGNED BY: MARY BETH SOTO MD SIGNED DATE/TIME: 12/12/24432 CC: [place] [id number] Ph: [phone] DIAGNOSTIC IMAGING Diagnostic Imaging Report : [id number] Signed PATIENT: SONU GUPTA FACCT: [id number] UNIT: [id number] : 1960 LOC: [facility] ROOM / BED: 0233T / A AGE / SEX: 64 / F ADM STATUS: ADM IN SERVICE 0400 ORDERING PHYSICIAN: LETICIA KLEIN RESIDENT PROCEDURE(s): CXRP - CHEST PORTABLE REASON: PNA, HF ORDER NUMBER(s): [id number], ACCESSION NUMBER(s): [id number] EXAM: XR Chest, 1 View CLINICAL INDICATION: PNA, HF TECHNIQUE: Frontal view of the chest. COMPARISON: XY CHEST PORTABLE on DOS: 12/16/24, XY CHEST PORTABLE on DOS: 12/15/24, XY CHEST PORTABLE on DOS: 12/14/24, XY CHEST PORTABLE on DOS: 12/13/24, XY CHEST PORTABLE on DOS: 12/13/24 FINDINGS: LUNGS AND PLEURAL SPACES: Mild pulmonary congestion. No consolidation. No pneumothorax. HEART: Unremarkable. No cardiomegaly. MEDIASTINUM: Unremarkable. Normal mediastinal contour. BONES/JOINTS: Unremarkable. No acute fracture. TUBES, LINES AND DEVICES: Right peripherally inserted central catheter (PICC) tip in the superior vena cava. OTHER FINDINGS: . IMPRESSION: Mild pulmonary congestion. ATED BY: ALICIA NEIL MD DICTATED DATE/TIME: 12/21/24706 SIGNED BY: ALICIA NEIL MD SIGNED DATE/TIME: 12/21/24 07 CC: Condition at Discharge: Stable Final Diagnosis/Problems List # acute metabolic encephalopathy likely due to acute hypoxic respiratory failure/sepsis # Acute hypercapnic respiratory failure likely due to COPD exacerbation due to Gram-positive/Gram-negative bacterial pneumonia # Pulmonary vascular congestion # COPD exacerbation # Septic shock # Possible acute on chronic diastolic heart failure 60% EF # Aortic atherosclerosis # Hypertension # Mild tricuspid regurgitation # Mild aortic root enlargement. # Left atrial enlargement #Anxiety, # Respiratory acidosis,resolved #Acute abdominal distention likely due to constipation #hypokalemia-replenished #Dehydration #Uterine fibroids # Septic shock likely due to Gram-positive/Gram-negative bacterial pneumonia # Skin abscess positive for E.Faecium Normocytic normochromic anemia Thrombocytopenia #type 1 obesity #metabolic syndrome #Skin psoriasis #skin abscess likely due to Hydradenitis suppurativa Vasquez II/III Discharge Disposition: [facility] Discharge Instruct/Medications Diet: Cardiac 2g Na,low cholest Follow Up/Referral: MD at SNF Please follow up with a sleep medicine specialist for further workup on sleep apnea. Please follow up with the dowel inspector in 2-3 weeks. Medications: As per EMR Discharge Statement: "Patient was advised to return to the ER or call 911 if any headaches, dizziness, shortness of breath, chest pain, abdominal pain, bleeding, fevers, or worsening of medical condition. Patient was counseled about treatment plan, medications, possible side effects, patientverbalized understanding. All questions were answered to the best of my ability. This discharge took greater then 30 minutes in planning, reviewing documentation, counseling the patient, and discussing with other team members." ASSESSMENT ASSESSMENT Assessment LETICIA KLEIN RESIDENT Dec 21, 2024 09:39
[2024-12-21] MEDS: VENLAFAXINE HCL 37.5mg XR cap PO SCH (10:16)
[2024-12-21] MEDS: predniSONE 20 MG TAB PO SCH (10:16)
[2024-12-21] MEDS: POTASSIUM EFFERVESENT TAB 25 MEQ GT ONE (10:17)
[2024-12-21] MEDS: FUROSEMIDE 40 MG TAB PO SCH (10:17)
[2024-12-21] MEDS: LOSARTAN POTASSIUM 50 MG TAB PO SCH (10:23)
== END 2024-12-21 16:15 | DRG 870 ==
LOC: EDBD 11:50 → ER 12:01 → OVERFLOW 21:29 → ICU WEST 12-02 16:49 → TELE-EAST 12-15 05:26
PROVIDERS: ADMIT Internal Medicine; ATTEND Emergency Medicine
PROC: 5A1955Z Respiratory Ventilation, Greater than 96 Consecutive Hours (ICD-10-PCS; principal; 2024-12-01)
PROC: 0BH17EZ Insertion of Endotracheal Airway into Trachea, Via Natural or Artificial Opening (ICD-10-PCS; 2024-12-01)
PROC: 02HV33Z Insertion of Infusion Device into Superior Vena Cava, Percutaneous Approach (ICD-10-PCS; 2024-12-01)
PROC: B548ZZA Ultrasonography of Superior Vena Cava, Guidance (ICD-10-PCS; 2024-12-01)
PROC: 02HV33Z Insertion of Infusion Device into Superior Vena Cava, Percutaneous Approach (ICD-10-PCS; 2024-12-01)
PROC: 02HV33Z Insertion of Infusion Device into Superior Vena Cava, Percutaneous Approach (ICD-10-PCS; 2024-12-08)
PROC: B548ZZA Ultrasonography of Superior Vena Cava, Guidance (ICD-10-PCS; 2024-12-08)
PROC: 5A09357 Assistance with Respiratory Ventilation, Less than 24 Consecutive Hours, Continuous Positive Airway Pressure (ICD-10-PCS; 2024-12-13)
PROC: 5A09357 Assistance with Respiratory Ventilation, Less than 24 Consecutive Hours, Continuous Positive Airway Pressure (ICD-10-PCS; 2024-12-13)
PROC: 5A09357 Assistance with Respiratory Ventilation, Less than 24 Consecutive Hours, Continuous Positive Airway Pressure (ICD-10-PCS; 2024-12-15)
PROC: 5A09357 Assistance with Respiratory Ventilation, Less than 24 Consecutive Hours, Continuous Positive Airway Pressure (ICD-10-PCS; 2024-12-16)
DX: A41.9 Sepsis, unspecified organism (principal); I50.33 Acute on chronic diastolic (congestive) heart failure; R65.21 Severe sepsis with septic shock; J96.22 Acute and chronic respiratory failure with hypercapnia; J96.21 Acute and chronic respiratory failure with hypoxia; J15.69 Pneumonia due to other Gram-negative bacteria; G93.41 Metabolic encephalopathy; J15.9 Unspecified bacterial pneumonia; J44.1 Chronic obstructive pulmonary disease with (acute) exacerbation; E87.29 Other acidosis; J44.0 Chronic obstructive pulmonary disease with (acute) lower respiratory infection; L02.818 Cutaneous abscess of other sites; I13.0 Hypertensive heart and chronic kidney disease with heart failure and stage 1 through stage 4 chronic kidney disease, or unspecified chronic kidney disease; E78.5 Hyperlipidemia, unspecified; E66.9 Obesity, unspecified; F17.210 Nicotine dependence, cigarettes, uncomplicated; F32.A Depression, unspecified; F41.0 Panic disorder [episodic paroxysmal anxiety]; K59.00 Constipation, unspecified; L40.9 Psoriasis, unspecified; D25.9 Leiomyoma of uterus, unspecified; D64.9 Anemia, unspecified; N18.9 Chronic kidney disease, unspecified; E86.0 Dehydration; R59.0 Localized enlarged lymph nodes; D69.6 Thrombocytopenia, unspecified; Z20.822 Contact with and (suspected) exposure to COVID-19; E87.6 Hypokalemia; I08.2 Rheumatic disorders of both aortic and tricuspid valves; E88.810 Metabolic syndrome; L73.2 Hidradenitis suppurativa; I70.0 Atherosclerosis of aorta; Z88.2 Allergy status to sulfonamides; Z79.899 Other long term (current) drug therapy; Z98.891 History of uterine scar from previous surgery; Z82.5 Family history of asthma and other chronic lower respiratory diseases; Z79.84 Long term (current) use of oral hypoglycemic drugs; Z68.34 Body mass index [BMI] 34.0-34.9, adult
CPT/HCPCS: 31500; 36415; 36556; 36569; 36600; 70450; 71045; 71275; 74018; 74176; 76937; 80048; 80053; 80061; 80076; 80202; 81001; 82805; 83036; 83540; 83550; 83605; 83735; 83880; 84100; 84132; 84484; 85007; 85025; 85027; 85379; 85610; 85730; 87040; 87070; 87077; 87081; 87186; 87205; 87426; 87804; 92610; 93005; 93306; 93970; 94002; 94003; 94640; 94660; 97110; 97116; 97163; 99291; G0378; J0330; J0692; J1756; J2405; J2470; J2704; J3480; J7060